=== PATIENT | female | born 1965 | race Caucasian/White ===

== ENCOUNTER 2017-01-16 09:13 | Emergency (ER) | payer MEDICARE ==
[~2017-01-16] VITALS: Ht 154.9 cm; Wt 83.9 kg
[~2017-01-16 09:13] MED LIST: ALBU17IN INH; ALL10TAB27 PO; DITR5TAB PO; FLUT1LOT EX; LEVO25TA5 PO; MELO15TA4 PO; MIRA33504 PO; MULT1TAB10 PO; SYMB16INH INH; VALI5TAB PO; VENL1TAB35 PO
[2017-01-16] MEDS ORDERED: MILKSUS PO (09:32)
[2017-01-16] MEDS ORDERED: predniSONE 20 MG TAB PO ONE (10:00)
[2017-01-16] MEDS: IPRATROPIUM 0.5MG/ALBUTEROL 2.5MG INH SOL UD 3ML (DUONEB)(J7620) NEB PRN ×3 (10:09→10:21)
[2017-01-16] MEDS ORDERED: AZITHROMYCIN 250 MG TAB PO ONE (10:15)
--- NOTE | 2017-01-16 10:15 | REP ---
Clinical: Acute cough . Comparison: 11/03/2008 . Technique: PA and lateral. Findings: The mediastinum and cardiac silhouette are normal. The lung mello are clear and without acute consolidation, effusion, or pneumothorax. The skeletal structures are intact and normal. Impression: 1. No acute cardiopulmonary process. Signed by Jairon Austin MD 01/16/2017 10:06 A
[2017-01-16 10:16] VITALS: BP 136/76
[2017-01-16] MEDS ORDERED: AZIT250T3 PO (10:16)
[2017-01-16] MEDS ORDERED: PRED20TA PO (10:17)
[2017-01-16] MEDS ORDERED: ALBU17IN INH (10:18)
[2017-01-16] MEDS ORDERED: MUCI600T34 PO (10:19)
== END 2017-01-16 10:54 | disposition home or self-care (01) ==
LOC: M ED 09:47
DX: J01.90 Acute sinusitis, unspecified (principal); J02.0 Streptococcal pharyngitis; J45.909 Unspecified asthma, uncomplicated; F32.9 Major depressive disorder, single episode, unspecified; Z88.2 Allergy status to sulfonamides; Z79.899 Other long term (current) drug therapy; Z79.51 Long term (current) use of inhaled steroids

== ENCOUNTER → 2017-02-21 | Outpatient (CLI) | payer MEDICARE ==
[~2017-02-21] MED LIST changes: +AZIT250T3 PO; +FLON1SPR; +MILKSUS PO; +MUCI600T34 PO; +PRED20TA PO; +PROA1AER INH
[2017-02-21 12:44] LABS: ALBUMIN 3.5 GM/DL (3.2-5.2); ALBUMIN/GLOBULIN RATIO 1.09 (1.00-1.93); ALKALINE PHOSPHATASE 64 U/L (45-117); ALT/SGPT 59 U/L (12-78); ANION GAP 7 MEQ/L (8-16); AST/SGOT 36 U/L (15-37); BILIRUBIN,TOTAL 0.3 MG/DL (0.2-1.0); BLOOD UREA NITROGEN 16 MG/DL (7-18); CALCIUM LEVEL 8.5 MG/DL (8.5-10.1); CARBON DIOXIDE LEVEL 29 MEQ/L (21-32); CHLORIDE LEVEL 106 MEQ/L (98-107); CHOLESTEROL LEVEL 221 MG/DL (<200); CREATININE FOR GFR 0.78 MG/DL (0.55-1.02); FREE T4 0.93 NG/DL (0.76-1.46); GLOMERULAR FILTRATION RATE > 60.0 (>51); GLUCOSE, FASTING 97 MG/DL (70-105); POTASSIUM SERUM 3.9 MEQ/L (3.5-5.1); SODIUM LEVEL 142 MEQ/L (136-145); TOTAL PROTEIN 6.7 GM/DL (6.4-8.2); TRIGLYCERIDES LEVEL 104 MG/DL (<150)
== END ==
LOC: M LAB 11:21
PROVIDERS: ATTEND Nurse Practitioner Family
DX: E03.9 Hypothyroidism, unspecified (principal); E55.9 Vitamin D deficiency, unspecified; E78.5 Hyperlipidemia, unspecified; F30.10 Manic episode without psychotic symptoms, unspecified

== ENCOUNTER → 2017-03-27 | Outpatient (REF) | payer MEDICARE ==
[~2017-03-27] MED LIST changes: +ACID1CAP PO; +ATOR1TAB21 PO; +D 1010004 PO; +TYLE500T78 PO; +XARE20TA PO
[2017-03-27 16:00] LABS: MEAN CORPUSCULAR HEMOGLOBIN 29.7 pg (27.0-33.0); MEAN CORPUSCULAR HGB CONC 34.1 g/dl (32.0-36.5); MEAN CORPUSCULAR VOLUME 87.1 fl (80.0-96.0); RED CELL DISTRIBUTION WIDTH 13.7 % (11.5-14.5); WHITE BLOOD COUNT 6.3 K/mm3 (4.0-10.0)
== END ==
LOC: M LABDRAW1 15:39
PROVIDERS: ATTEND Physician Assistant Medical
DX: R19.5 Other fecal abnormalities (principal)

== ENCOUNTER → 2017-03-27 | Outpatient (REF) | payer MEDICARE ==
[2017-03-27 16:11] LABS: FREE T4 1.02 NG/DL (0.76-1.46)
== END ==
LOC: M LABDRAW1 15:41
PROVIDERS: ATTEND Nurse Practitioner Family
DX: E03.9 Hypothyroidism, unspecified (principal); R19.5 Other fecal abnormalities

== ENCOUNTER → 2017-04-05 | Outpatient (CLI) | payer MEDICARE ==
[~2017-04-05] VITALS: Ht 154.9 cm; Wt 87.1 kg
[~2017-04-05] MED LIST changes: +LIDOCAINE 2% INJ 100 MG/5 ML SDV (FOR ANES.) As Ordered ONE; +NS 1,000 ML IV ONE; +PROPOFOL 200 MG/20 ML VIAL As Ordered ONE; +fentaNYL 100 MCG/2 ML INJECTION (J3010) As Ordered ONE
--- NOTE | 2017-04-05 12:58 | ROOR ---
Patient Name: Kiran Bloom Procedure Date: 04/05/2017 12:43 PM Date of : 1965 Age: 51 Room: [facility] Gender: Female Note Status: Finalized Procedure: Upper GI endoscopy Indications: Epigastric abdominal pain Providers: Zack CHAO MD Referring MD: Robel Wood NP Requesting Provider: Medicines: Monitored Anesthesia Care Complications: No immediate complications. Procedure: Pre-Anesthesia Assessment: - The heart rate, respiratory rate, oxygen saturations, blood pressure, adequacy of pulmonary ventilation, and response to care were monitored throughout the procedure. The Endoscope was introduced through the mouth, and advanced to the second part of duodenum. The upper GI endoscopy was accomplished without difficulty. The patient tolerated the procedure well. Findings: The examined esophagus was normal. The entire examined stomach was normal. A medium diverticulum was found in the second portion of the duodenum. The examined duodenum was normal. Impression: - Normal esophagus. - Normal stomach. - Normal examined duodenum. -Incidental: Duodenal diverticulum. - No specimens collected. Recommendation: - Observe patient's clinical course. - Continue present medications. Zack Chao MD Zack CHAO MD 04/05/2017 12:57:54 PM This report has been signed electronically. Number of Addenda: 0 Note Initiated On: 04/05/2017 12:43 PM Estimated Blood Loss: Estimated blood loss: none.
--- NOTE | 2017-04-05 13:12 | ROOR ---
Patient Name: Kiran Bloom Procedure Date: 04/05/2017 12:41 PM Date of : 1965 Age: 51 Room: [facility] Gender: Female Note Status: Finalized Procedure: Colonoscopy Indications: Heme positive stool, Constipation Providers: Zack CHAO MD Referring MD: Robel Wood NP Requesting Provider: Medicines: Monitored Anesthesia Care Complications: No immediate complications. Procedure: Pre-Anesthesia Assessment: - The heart rate, respiratory rate, oxygen saturations, blood pressure, adequacy of pulmonary ventilation, and response to care were monitored throughout the procedure. The Colonoscope was introduced through the anus and advanced to the cecum, identified by appendiceal orifice and ileocecal valve. Findings: The perianal and digital rectal examinations were normal. Small Internal Hemorrhoids. The entire examined colon appeared normal on direct and retroflexion views. Impression: - Small Internal Hemorrhoids. - The entire colon is normal on direct and retroflexion views. - No specimens collected. Recommendation: - Miralax 1 capful (17 grams) in 8 ounces of water twice a day. Zack Chao MD Zack CHAO MD 04/05/2017 1:12:01 PM This report has been signed electronically. Number of Addenda: 0 Note Initiated On: 04/05/2017 12:41 PM Estimated Blood Loss: Estimated blood loss: none.
[2017-04-05 13:32] VITALS: BP 156/89
== END | disposition home or self-care (01) ==
LOC: M OPP 10:36
PROVIDERS: ATTEND Internal Medicine Gastroenterology
DX: R19.5 Other fecal abnormalities (principal); K59.00 Constipation, unspecified; K64.8 Other hemorrhoids; R10.13 Epigastric pain; K57.10 Diverticulosis of small intestine without perforation or abscess without bleeding; E78.5 Hyperlipidemia, unspecified; I99.9 Unspecified disorder of circulatory system; Z86.718 Personal history of other venous thrombosis and embolism; E03.9 Hypothyroidism, unspecified; R23.3 Spontaneous ecchymoses; M19.90 Unspecified osteoarthritis, unspecified site; F41.9 Anxiety disorder, unspecified; F32.9 Major depressive disorder, single episode, unspecified; Z86.711 Personal history of pulmonary embolism; G47.8 Other sleep disorders; G47.30 Sleep apnea, unspecified; R06.83 Snoring; R32 Unspecified urinary incontinence; J45.909 Unspecified asthma, uncomplicated; Z88.2 Allergy status to sulfonamides; Z91.048 Other nonmedicinal substance allergy status; Z79.899 Other long term (current) drug therapy; Z79.01 Long term (current) use of anticoagulants
CPT/HCPCS: 43235; 45378; J3010

== ENCOUNTER → 2017-09-10 | Outpatient (REF) | payer MEDICARE ==
[~2017-09-10] MED LIST changes: +AZIT-12 PO; -AZIT250T3 PO; -LIDOCAINE 2% INJ 100 MG/5 ML SDV (FOR ANES.) As Ordered ONE; -MUCI600T34 PO; +MUCI600T37 PO; -NS 1,000 ML IV ONE; -PROA1AER INH; +PROAAER10 INH; -PROPOFOL 200 MG/20 ML VIAL As Ordered ONE; -fentaNYL 100 MCG/2 ML INJECTION (J3010) As Ordered ONE
[2017-09-10 13:09] LABS: ALBUMIN 3.8 GM/DL (3.2-5.2); ALBUMIN/GLOBULIN RATIO 1.27 (1.00-1.93); ALKALINE PHOSPHATASE 67 U/L (45-117); ALT/SGPT 52 U/L (12-78); ANION GAP 7 MEQ/L (8-16); AST/SGOT 30 U/L (7-37); BILIRUBIN,TOTAL 0.4 MG/DL (0.2-1.0); BLOOD UREA NITROGEN 16 MG/DL (7-18); CALCIUM LEVEL 8.7 MG/DL (8.5-10.1); CARBON DIOXIDE LEVEL 30 MEQ/L (21-32); CHLORIDE LEVEL 109 MEQ/L (98-107); CHOLESTEROL LEVEL 118 MG/DL (<200); CREATININE FOR GFR 0.76 MG/DL (0.55-1.02); FREE T4 1.12 NG/DL (0.76-1.46); GLOMERULAR FILTRATION RATE > 60.0 (>51); GLUCOSE, FASTING 94 MG/DL (70-105); POTASSIUM SERUM 3.8 MEQ/L (3.5-5.1); SODIUM LEVEL 146 MEQ/L (136-145); TOTAL PROTEIN 6.8 GM/DL (6.4-8.2); TRIGLYCERIDES LEVEL 60 MG/DL (<150)
== END ==
LOC: M LABDRAW1 12:06
PROVIDERS: ATTEND Nurse Practitioner Family
DX: E55.9 Vitamin D deficiency, unspecified (principal); E03.9 Hypothyroidism, unspecified; E78.5 Hyperlipidemia, unspecified

== ENCOUNTER 2017-10-28 09:42 | Emergency (ER) | payer MEDICARE ==
[2017-10-28] MEDS: NS 1,000 ML IV (11:33)
[2017-10-28 11:34] LABS: BASO # 0.1 10^3/uL (0.0-0.2); BASO % 0.8 % (0.0-1.0); EOS # 0.2 10^3/uL (0.0-0.50); EOS % 3.7 % (0.0-3.0); HEMATOCRIT 43.3 % (36.0-47.0); HEMOGLOBIN 14.4 g/dl (12.0-16.0); IMMATURE GRANULOCYTE % 0.3 % (0-0); LYMPH # 1.1 10^3/uL (1.5-4.5); LYMPH % 16.6 % (24.0-44.0); MEAN CORPUSCULAR HEMOGLOBIN 29.2 pg (27.0-33.0); MEAN CORPUSCULAR HGB CONC 33.3 g/dl (32.0-36.5); MEAN CORPUSCULAR VOLUME 87.8 fl (80.0-96.0); MONO # 0.6 10^3/uL (0.0-0.8); MONO % 9.1 % (0.0-5.0); NEUTROPHILS # 4.5 10^3/uL (1.8-7.7); NEUTROPHILS % 69.5 % (36.0-66.0); PLATELET COUNT, AUTOMATED 173 10^3/uL (150-450); RED BLOOD COUNT 4.93 10^6/uL (4.00-5.40); RED CELL DISTRIBUTION WIDTH 13.3 % (11.5-14.5); WHITE BLOOD COUNT 6.5 10^3/uL (4.0-10.0)
[2017-10-28 12:03] LABS: ALBUMIN 3.9 GM/DL (3.2-5.2); ALBUMIN/GLOBULIN RATIO 1.05 (1.00-1.93); ALKALINE PHOSPHATASE 77 U/L (45-117); ALT/SGPT 44 U/L (12-78); ANION GAP 7 MEQ/L (8-16); AST/SGOT 28 U/L (7-37); BILIRUBIN,TOTAL 0.5 MG/DL (0.2-1.0); BLOOD UREA NITROGEN 15 MG/DL (7-18); CALCIUM LEVEL 8.4 MG/DL (8.5-10.1); CARBON DIOXIDE LEVEL 30 MEQ/L (21-32); CHLORIDE LEVEL 105 MEQ/L (98-107); CREATININE FOR GFR 0.73 MG/DL (0.55-1.02); GLOMERULAR FILTRATION RATE > 60.0 (>51); GLUCOSE, FASTING 87 MG/DL (70-105); SODIUM LEVEL 142 MEQ/L (136-145); TOTAL PROTEIN 7.6 GM/DL (6.4-8.2)
[2017-10-28 12:14] LABS: D-DIMER QUANT 333.7 ng/ml (<500)
[2017-10-28] MEDS: AUGMENTIN 875 MG TAB PO (13:31)
[2017-10-28] MEDS: predniSONE 20 MG TAB PO (13:31)
== END 2017-10-28 13:47 | disposition home or self-care (01) ==
LOC: M ED 09:42
DX: J01.90 Acute sinusitis, unspecified (principal); J20.9 Acute bronchitis, unspecified; E78.00 Pure hypercholesterolemia, unspecified; Z86.718 Personal history of other venous thrombosis and embolism; Z86.711 Personal history of pulmonary embolism; G47.30 Sleep apnea, unspecified; E03.9 Hypothyroidism, unspecified; F41.9 Anxiety disorder, unspecified; F32.9 Major depressive disorder, single episode, unspecified; J30.89 Other allergic rhinitis; Z79.899 Other long term (current) drug therapy; Z88.2 Allergy status to sulfonamides
CPT/HCPCS: 71046

== ENCOUNTER → 2018-01-28 | Outpatient (REF) | payer MEDICARE ==
[2018-02-01 14:24] LABS: HPV LOW VOL RFLX Negative (Negative)
== END ==
LOC: M LAB REF 18:43
DX: Z01.419 Encounter for gynecological examination (general) (routine) without abnormal findings (principal); Z11.51 Encounter for screening for human papillomavirus (HPV)
CPT/HCPCS: G0123

== ENCOUNTER → 2018-03-26 | Outpatient (REF) | payer MEDICARE ==
[2018-03-27 12:01] LABS: ALBUMIN/GLOBULIN RATIO 1.33 (1.00-1.93); ALKALINE PHOSPHATASE 75 U/L (45-117); ALT/SGPT 53 U/L (12-78); ANION GAP 5 MEQ/L (8-16); AST/SGOT 31 U/L (7-37); BILIRUBIN,TOTAL 0.4 MG/DL (0.2-1.0); BLOOD UREA NITROGEN 11 MG/DL (7-18); CALCIUM LEVEL 8.7 MG/DL (8.5-10.1); CARBON DIOXIDE LEVEL 31 MEQ/L (21-32); CHLORIDE LEVEL 104 MEQ/L (98-107); CHOLESTEROL LEVEL 108 MG/DL (<200); CHOLESTEROL RISK RATIO 2.037 (<5); FREE T3 2.5 PG/ML (2.2-4.0); FREE T4 1.07 NG/DL (0.76-1.46); GLOMERULAR FILTRATION RATE > 60.0 (>51); GLUCOSE, FASTING 84 MG/DL (70-100); HDL CHOLESTEROL 53 MG/DL (>40); LDL CHOLESTEROL 42.8 MG/DL (<100); NON-HDL-C 55 MG/DL; SODIUM LEVEL 140 MEQ/L (136-145); TRIGLYCERIDES LEVEL 61 MG/DL (<150)
[2018-03-27 14:56] LABS: TOTAL 25(OH) VITAMIN D 42.3 NG/ML (30.0-100.0)
== END ==
LOC: M LABDRAW1 08:00
DX: E55.9 Vitamin D deficiency, unspecified (principal); E03.9 Hypothyroidism, unspecified; E78.5 Hyperlipidemia, unspecified; Z79.899 Other long term (current) drug therapy
CPT/HCPCS: 84443

== ENCOUNTER → 2018-04-29 | Outpatient (REF) | payer MEDICARE, OTHER ==
[2018-04-29 20:18] LABS: APPEARANCE, URINE HAZY (CLEAR); BACTERIA, URINE AUTO 2+ (NEGATIVE); BILIRUBIN, URINE AUTO NEGATIVE (NEGATIVE); BLOOD, URINE BLOOD 3+ (NEGATIVE); COLOR, URINE YELLOW (YELLOW); GLUCOSE, URINE (UA) AUTO NEGATIVE (NEGATIVE); KETONE, URINE AUTO NEGATIVE (NEGATIVE); LEUKOCYTE ESTERASE, URINE AUTO 3+ (NEGATIVE); NITRITE, URINE AUTO NEGATIVE (NEGATIVE); PROTEIN, URINE AUTO 1+ mg/dL (NEGATIVE); RBC, URINE AUTO 7 /HPF (0-3); SPECIFIC GRAVITY URINE AUTO 1.005 (1.002-1.035); SQUAMOUS EPITHELIAL CELL UR AU 0 /HPF (0-6); UROBILINOGEN, URINE AUTO 0.2 mg/dL (0.0-2.0); WBC, URINE AUTO 164 /HPF (0-3)
== END ==
LOC: M LAB REF 16:59
DX: N39.0 Urinary tract infection, site not specified (principal)
CPT/HCPCS: 81001

== ENCOUNTER → 2018-07-17 | Outpatient (REF) | payer MEDICARE, OTHER ==
[2018-07-17 14:53] LABS: CHOLESTEROL LEVEL 135 MG/DL (<200); CHOLESTEROL RISK RATIO 2.454 (<5); FREE T3 2.9 PG/ML (2.2-4.0); FREE T4 1.41 NG/DL (0.76-1.46); HDL CHOLESTEROL 55 MG/DL (>40); LDL CHOLESTEROL 69 MG/DL (<100); NON-HDL-C 80 MG/DL; THYROID STIMULATING HORMONE 0.956 uIU/ML (0.358-3.740); TOTAL 25(OH) VITAMIN D 36.5 NG/ML (30.0-100.0); TRIGLYCERIDES LEVEL 54 MG/DL (<150)
== END ==
LOC: M LABDRAW1 11:39
DX: E55.9 Vitamin D deficiency, unspecified (principal); E03.9 Hypothyroidism, unspecified; E78.5 Hyperlipidemia, unspecified; Z79.899 Other long term (current) drug therapy; F31.32 Bipolar disorder, current episode depressed, moderate; F70 Mild intellectual disabilities; F41.1 Generalized anxiety disorder; F60.7 Dependent personality disorder
CPT/HCPCS: 84443

== ENCOUNTER → 2018-09-02 | Outpatient (REF) ==
[2018-09-03 08:47] LABS: RUBEOLA IgG ANTIBODY 41.2 AU/mL (Immune >29.9)
[2018-09-03 10:27] LABS: RUBELLA IgG QUALITATIVE IMMUNE (IMMUNE)
== END ==
LOC: M LAB 10:30
DX: Z00.00 Encounter for general adult medical examination without abnormal findings (principal)

== ENCOUNTER 2018-12-03 15:40 | Emergency (ER) | payer MEDICARE ==
[~2018-12-03] VITALS: Ht 152.4 cm; Wt 65.0 kg
[~2018-12-03 15:40] MED LIST changes: -ALL10TAB27 PO; +ALL10TAB28 PO; +AUGM875T28 PO; +CALCTAB68 PO; +DIPH50CA PO; +HYDRO50TAB PO; +INVE156I IM; +INVE3TAB2 PO; +INVE6TAB3 PO; +MELO15TA28 PO; -MELO15TA4 PO; +MILK120011 PO; -MILKSUS PO; +OXYB5TAB10 PO; +TRAZO50TA PO; +VENL100T PO
[2018-12-03] MEDS ORDERED: VENL37.598 (15:53)
[2018-12-03] MEDS ORDERED: VENL75CA47 (15:53)
--- NOTE | 2018-12-03 16:34 | REP ---
CT Head without contrast HISTORY: Head pressure COMPARISON: 04/03/2018 Areas of decreased attenuation are present in the periventricular and subcortical white matter. This represents small-vessel ischemic disease. There is no intraparenchymal hemorrhage, acute infarct, mass or midline shift. The ventricular system is normal in appearance. There is no extra cerebral collection. There is no fracture. The visualized sinuses are clear. IMPRESSION: Small-vessel ischemic disease. Electronically Signed by Trace Cox MD 12/03/2018 04:26 P
[2018-12-03 17:57] VITALS: BP 145/84
== END 2018-12-03 18:04 | disposition home or self-care (01) ==
LOC: M ED 15:40
DX: R51 Headache (principal); E78.5 Hyperlipidemia, unspecified; E03.9 Hypothyroidism, unspecified

== ENCOUNTER → 2018-12-05 | Outpatient (REF) | payer MEDICARE ==
[~2018-12-05] MED LIST changes: +VENL37.598; +VENL75CA47
[2018-12-05 11:53] LABS: BASO # 0.1 10^3/uL (0.0-0.2); BASO % 0.8 % (0.0-1.0); EOS # 0.1 10^3/uL (0.0-0.50); HEMATOCRIT 44.2 % (36.0-47.0); HEMOGLOBIN 14.9 g/dl (12.0-15.5); LYMPH # 0.9 10^3/uL (1.5-4.5); LYMPH % 14.5 % (24.0-44.0); MEAN CORPUSCULAR HEMOGLOBIN 28.8 pg (27.0-33.0); MEAN CORPUSCULAR HGB CONC 33.7 g/dl (32.0-36.5); MEAN CORPUSCULAR VOLUME 85.5 fl (80.0-96.0); MONO # 0.4 10^3/uL (0.0-0.8); MONO % 6.3 % (0.0-5.0); NEUTROPHILS # 4.6 10^3/uL (1.8-7.7); NEUTROPHILS % 76.7 % (36.0-66.0); PLATELET COUNT, AUTOMATED 192 10^3/uL (150-450); RED BLOOD COUNT 5.17 10^6/uL (4.00-5.40)
[2018-12-05 12:40] LABS: ALBUMIN 4.2 GM/DL (3.2-5.2); ALT/SGPT 25 U/L (12-78); BILIRUBIN,TOTAL 0.7 MG/DL (0.2-1.0); BLOOD UREA NITROGEN 14 MG/DL (7-18); CALCIUM LEVEL 8.8 MG/DL (8.5-10.1); CARBON DIOXIDE LEVEL 27 MEQ/L (21-32); CHLORIDE LEVEL 107 MEQ/L (98-107); CHOLESTEROL LEVEL 146 MG/DL (<200); CHOLESTEROL RISK RATIO 2.607 (<5); CREATININE FOR GFR 0.58 MG/DL (0.55-1.30); FREE T3 2.6 PG/ML (2.2-4.0); FREE T4 1.43 NG/DL (0.76-1.46); GLOMERULAR FILTRATION RATE > 60.0 (>51); GLUCOSE, FASTING 109 MG/DL (70-100); HDL CHOLESTEROL 56 MG/DL (>40); LDL CHOLESTEROL 79 MG/DL (<100); NON-HDL-C 90 MG/DL; POTASSIUM SERUM 3.5 MEQ/L (3.5-5.1); SODIUM LEVEL 142 MEQ/L (136-145); TOTAL 25(OH) VITAMIN D 33.3 NG/ML (30.0-100.0); TRIGLYCERIDES LEVEL 55 MG/DL (<150)
== END ==
LOC: M LABDRAW1 09:08
PROVIDERS: ATTEND Nurse Practitioner Family
DX: E03.9 Hypothyroidism, unspecified (principal); E78.5 Hyperlipidemia, unspecified

== ENCOUNTER → 2018-12-24 | Outpatient (CLI) | payer MEDICARE ==
[2018-12-24 18:33] LABS: FOLLICLE STIMULATING HORMONE 86.7 mIU/mL; LUTEINIZING HORMONE 50.7 mIU/mL
== END ==
LOC: M SMT 15:19
PROVIDERS: ATTEND Specialist
DX: N95.1 Menopausal and female climacteric states (principal)

== ENCOUNTER → 2019-03-10 | Outpatient (CLI) | payer MEDICARE ==
--- NOTE | 2019-03-12 12:30 | SLEEPCENT ---
DATE OF PROCEDURE: 03/10/2019 ORDERED BY: LEONELA Casper Nocturnal polysomnography was performed for titration of pressure therapy in this patient with obstructive sleep apnea syndrome. Apnea-hypopnea index 33.7. For testing the patient was fit with a ResMed AirFit F20 full-face mask of small size; 4 cm of water pressure were applied to the circuit and the lights were extinguished. 7 hours and 49 minutes of data were reviewed. There were 334 minutes of sleep identified. Sleep latency was normal at 10 minutes. Rapid eye movement (REM) latency was delayed at 272 minutes. Sleep architecture was fair. There was 1 rapid eye movement (REM) cycle. Overall sleep efficiency 72.8%. The patient's electrocardiogram showed a sinus rhythm with an average heart rate of 70 beats per minute. Electroencephalogram (EEG) showed normal waveforms for awake and sleep. Respiratory events were fully palliated with CPAP at a pressure of +6 and remaining measures of sleep physiology were normal. IMPRESSION: Obstructive sleep apnea syndrome (G47.33). RECOMMENDATIONS: Nightly use of pressure therapy 6 cm of water.
== END ==
LOC: M SLEEP 19:29
PROVIDERS: ATTEND Nurse Practitioner Family
DX: G47.33 Obstructive sleep apnea (adult) (pediatric) (principal)

== ENCOUNTER → 2019-06-12 | Outpatient (CLI) | payer MEDICARE ==
[~2019-06-12] MED LIST changes: +HYDR1TAB33 PO; -HYDRO50TAB PO; +TRAZ1TAB10 PO; -TRAZO50TA PO
[2019-06-12 09:23] LABS: BASO # 0.1 10^3/uL (0.0-0.2); BASO % 1.3 % (0.0-1.0); EOS # 0.3 10^3/uL (0.0-0.50); EOS % 5.1 % (0.0-3.0); HEMATOCRIT 44.2 % (36.0-47.0); HEMOGLOBIN 14.4 g/dl (12.0-15.5); LYMPH # 1.1 10^3/uL (1.5-4.5); LYMPH % 18.5 % (24.0-44.0); MEAN CORPUSCULAR HEMOGLOBIN 29.6 pg (27.0-33.0); MEAN CORPUSCULAR HGB CONC 32.6 g/dl (32.0-36.5); MEAN CORPUSCULAR VOLUME 90.9 fl (80.0-96.0); MONO # 0.6 10^3/uL (0.0-0.8); MONO % 9.6 % (0.0-5.0); NEUTROPHILS % 65.2 % (36.0-66.0); PLATELET COUNT, AUTOMATED 184 10^3/uL (150-450); RED BLOOD COUNT 4.86 10^6/uL (4.00-5.40); WHITE BLOOD COUNT 6.1 10^3/uL (4.0-10.0)
[2019-06-12 09:54] LABS: ALBUMIN 3.8 GM/DL (3.2-5.2); ALT/SGPT 26 U/L (12-78); BILIRUBIN,TOTAL 0.6 MG/DL (0.2-1.0); BLOOD UREA NITROGEN 13 MG/DL (7-18); CALCIUM LEVEL 9.5 MG/DL (8.5-10.1); CARBON DIOXIDE LEVEL 31 MEQ/L (21-32); CHLORIDE LEVEL 108 MEQ/L (98-107); CHOLESTEROL LEVEL 159 MG/DL (<200); CHOLESTEROL RISK RATIO 2.789 (<5); GLOMERULAR FILTRATION RATE > 60.0 (>51); GLUCOSE, FASTING 96 MG/DL (70-100); HDL CHOLESTEROL 57 MG/DL (>40); LDL CHOLESTEROL 77 MG/DL (<100); LITHIUM LEVEL 0.27 MEQ/L (0.60-1.20); NON-HDL-C 102 MG/DL; POTASSIUM SERUM 3.9 MEQ/L (3.5-5.1); SODIUM LEVEL 145 MEQ/L (136-145); TRIGLYCERIDES LEVEL 123 MG/DL (<150)
== END ==
LOC: M LAB 08:27
PROVIDERS: ATTEND Physician Assistant
DX: E03.9 Hypothyroidism, unspecified (principal); E78.2 Mixed hyperlipidemia; F33.1 Major depressive disorder, recurrent, moderate; Z79.899 Other long term (current) drug therapy

== ENCOUNTER → 2019-08-10 | Outpatient (CLI) | payer MEDICARE ==
[~2019-08-10] MED LIST changes: -ALL10TAB28 PO; +ALL10TAB29 PO
[2019-08-10 11:22] LABS: BASO # 0.1 10^3/uL (0.0-0.2); BASO % 1.6 % (0.0-1.0); EOS # 0.3 10^3/uL (0.0-0.5); EOS % 5.3 % (0.0-3.0); HEMOGLOBIN 14.1 g/dl (12.0-15.5); LYMPH # 1.3 10^3/uL (1.5-5.0); MEAN CORPUSCULAR HEMOGLOBIN 30.5 pg (27.0-33.0); MEAN CORPUSCULAR HGB CONC 33.6 g/dl (32.0-36.5); MEAN CORPUSCULAR VOLUME 90.7 fl (80.0-96.0); MONO # 0.5 10^3/uL (0.0-0.8); MONO % 9.7 % (0.0-5.0); NEUTROPHILS # 3.2 10^3/uL (1.5-8.5); PLATELET COUNT, AUTOMATED 186 10^3/uL (150-450); RED BLOOD COUNT 4.63 10^6/uL (4.00-5.40); WHITE BLOOD COUNT 5.5 10^3/uL (4.0-10.0)
[2019-08-10 11:53] LABS: ERYTHROCYTE SEDIMENTATION RATE 11 mm/hr (0-30)
[2019-08-10 12:13] LABS: ALBUMIN 3.7 GM/DL (3.2-5.2); ALT/SGPT 43 U/L (12-78); BILIRUBIN,TOTAL 0.5 MG/DL (0.2-1.0); BLOOD UREA NITROGEN 16 MG/DL (7-18); CARBON DIOXIDE LEVEL 28 MEQ/L (21-32); CHLORIDE LEVEL 109 MEQ/L (98-107); CREATININE FOR GFR 0.73 MG/DL (0.55-1.30); GLOMERULAR FILTRATION RATE > 60.0 (>51); GLUCOSE, FASTING 96 MG/DL (70-100); POTASSIUM SERUM 4.6 MEQ/L (3.5-5.1); RHEUMATOID FACTOR QUANT < 10.0 IU/ML (<15.0); SODIUM LEVEL 141 MEQ/L (136-145); TOTAL 25(OH) VITAMIN D 30.8 NG/ML (30.0-100.0)
[2019-08-11 14:40] LABS: ANTINUCLEAR ANTIBODIES DIRECT Negative (Negative)
== END ==
LOC: M LAB 10:21
PROVIDERS: ATTEND Psychiatry & Neurology Neurology
DX: R51 Headache (principal); Z79.899 Other long term (current) drug therapy

== ENCOUNTER → 2019-10-22 | Outpatient (CLI) | payer MEDICARE ==
[2019-10-22 11:38] LABS: MAGNESIUM LEVEL 2.2 MG/DL (1.8-2.4)
[2019-10-22 13:13] LABS: TOTAL 25(OH) VITAMIN D 39.3 NG/ML (30.0-100.0)
== END ==
LOC: M LAB 10:19
PROVIDERS: ATTEND Physician Assistant Medical
DX: E55.9 Vitamin D deficiency, unspecified (principal); G47.00 Insomnia, unspecified; R51 Headache; Z79.899 Other long term (current) drug therapy

== ENCOUNTER → 2020-02-22 | Outpatient (REF) | payer MEDICARE | LOC: M SFHCWAGY 16:57 | PROVIDERS: ATTEND Specialist | DX: Z01.419 Encounter for gynecological examination (general) (routine) without abnormal findings (principal); R87.625 Unsatisfactory cytologic smear of vagina | CPT/HCPCS: G0101; G0123 ==

== ENCOUNTER → 2020-03-10 | Outpatient (CLI) | payer MEDICARE ==
[2020-03-10 10:55] LABS: BASO # 0.1 10^3/uL (0.0-0.2); BASO % 1.2 % (0.0-1.0); EOS # 0.3 10^3/uL (0.0-0.5); EOS % 4.5 % (0.0-3.0); HEMATOCRIT 46.7 % (36.0-47.0); HEMOGLOBIN 15.3 g/dl (12.0-15.5); LYMPH # 1.2 10^3/uL (1.5-5.0); LYMPH % 17.9 % (24.0-44.0); MEAN CORPUSCULAR HEMOGLOBIN 28.7 pg (27.0-33.0); MEAN CORPUSCULAR HGB CONC 32.8 g/dl (32.0-36.5); MEAN CORPUSCULAR VOLUME 87.5 fl (80.0-96.0); MONO # 0.6 10^3/uL (0.0-0.8); MONO % 8.9 % (0.0-5.0); NEUTROPHILS # 4.6 10^3/uL (1.5-8.5); NEUTROPHILS % 67.2 % (36.0-66.0); PLATELET COUNT, AUTOMATED 204 10^3/uL (150-450); RED BLOOD COUNT 5.34 10^6/uL (4.00-5.40); WHITE BLOOD COUNT 6.8 10^3/uL (4.0-10.0)
[2020-03-10 13:18] LABS: ALBUMIN 3.9 GM/DL (3.2-5.2); ALT/SGPT 54 U/L (12-78); BILIRUBIN,TOTAL 0.4 MG/DL (0.2-1.0); BLOOD UREA NITROGEN 17 MG/DL (7-18); CALCIUM LEVEL 8.9 MG/DL (8.5-10.1); CARBON DIOXIDE LEVEL 27 MEQ/L (21-32); CHLORIDE LEVEL 111 MEQ/L (98-107); CHOLESTEROL LEVEL 161 MG/DL (<200); CHOLESTEROL RISK RATIO 3.285 (<5); CREATININE FOR GFR 0.72 MG/DL (0.55-1.30); FREE T4 1.03 NG/DL (0.76-1.46); GLOMERULAR FILTRATION RATE > 60.0 (>51); GLUCOSE, FASTING 110 MG/DL (70-100); HDL CHOLESTEROL 49 MG/DL (>40); LDL CHOLESTEROL 89 MG/DL (<100); NON-HDL-C 112 MG/DL; POTASSIUM SERUM 4.3 MEQ/L (3.5-5.1); SODIUM LEVEL 144 MEQ/L (136-145); TOTAL PROTEIN 7.4 GM/DL (6.4-8.2); TRIGLYCERIDES LEVEL 116 MG/DL (<150)
[2020-03-10 14:26] LABS: HEMOGLOBIN A1c 5.8 %
== END ==
LOC: M LAB 09:52
PROVIDERS: ATTEND Family Medicine
DX: E03.9 Hypothyroidism, unspecified (principal); E78.2 Mixed hyperlipidemia; J45.30 Mild persistent asthma, uncomplicated; R73.01 Impaired fasting glucose

== ENCOUNTER 2020-03-24 17:00 | Emergency (ER) | payer MEDICARE ==
[~2020-03-24] VITALS: Ht 152.4 cm; Wt 91.3 kg
[2020-03-24] MEDS ORDERED: RAME8TAB2 (17:13)
[2020-03-24] MEDS ORDERED: DOXE50CA (17:13)
[2020-03-24] MEDS ORDERED: ESSE250T PO (17:13)
[2020-03-24] MEDS ORDERED: DIAZ2TAB (17:13)
[2020-03-24] MEDS ORDERED: BRIN1TAB3 (17:13)
[2020-03-24] MEDS ORDERED: GABA-843 (17:13)
[2020-03-24] MEDS ORDERED: DOXE10CA (17:13)
--- NOTE | 2020-03-24 18:02 | REPVR ---
PROCEDURE INFORMATION: Exam: US Duplex Left Lower Extremity Veins, Limited Exam date and time: 03/24/2020 5:56 PM Age: 54 years old Clinical indication: Swelling (edema) of limb; Lower extremity, left; Additional info: Swelling, R/O dvt TECHNIQUE: Imaging protocol: Real-time Duplex ultrasound of the Left Lower Extremity with 2-D clemens scale, color Doppler flow and spectral waveform analysis with image documentation. Limited exam focused on the left lower extremity veins. COMPARISON: No relevant prior studies available. FINDINGS: Left deep veins: The common femoral, femoral, and popliteal veins are patent without thrombus. Normal Doppler waveforms. Normal compressibility and/or augmentation response. Left superficial veins: Unremarkable. Soft tissues: Unremarkable. IMPRESSION: No evidence of deep vein thrombosis. Electronically signed by: Ady Murry On 03/24/2020 18:02:27 PM
[2020-03-24 18:51] VITALS: BP 150/81
== END 2020-03-24 19:00 | disposition home or self-care (01) ==
LOC: M ED 17:00
DX: M79.605 Pain in left leg (principal); R22.42 Localized swelling, mass and lump, left lower limb

== ENCOUNTER 2020-06-26 09:11 | Emergency (ER) | payer MEDICARE ==
[~2020-06-26] VITALS: Ht 152.4 cm; Wt 94.5 kg
[~2020-06-26 09:11] MED LIST changes: -ALL10TAB29 PO; +BRIN1TAB3; +CETI-24 PO; +DIAZ2TAB; +DOXE10CA; +DOXE50CA PO; +ESSE250T PO; +GABA-843 PO; +RAME8TAB2 PO
[2020-06-26] MEDS ORDERED: FLUORESCEIN OPHTH 1 MG STRIP OD ONE (10:15)
[2020-06-26] MEDS ORDERED: TETRACAINE 0.5% OPHTH SOLN 4ML OD ONE (10:15)
[2020-06-26] MEDS ORDERED: ISOVUE-370 76% 100ML VIAL As Ordered ONE (10:37)
[2020-06-26 10:39] LABS: BASO # 0.1 10^3/uL (0.0-0.2); BASO % 0.8 % (0.0-1.0); EOS # 0.2 10^3/uL (0.0-0.5); EOS % 2.9 % (0.0-3.0); HEMATOCRIT 45.3 % (36.0-47.0); HEMOGLOBIN 14.8 g/dl (12.0-15.5); LYMPH # 1.3 10^3/uL (1.5-5.0); LYMPH % 16.7 % (24.0-44.0); MEAN CORPUSCULAR HEMOGLOBIN 28.5 pg (27.0-33.0); MEAN CORPUSCULAR HGB CONC 32.7 g/dl (32.0-36.5); MEAN CORPUSCULAR VOLUME 87.3 fl (80.0-96.0); MONO # 0.6 10^3/uL (0.0-0.8); MONO % 7.8 % (0.0-5.0); NEUTROPHILS # 5.4 10^3/uL (1.5-8.5); NEUTROPHILS % 71.4 % (36.0-66.0); PLATELET COUNT, AUTOMATED 205 10^3/uL (150-450); RED BLOOD COUNT 5.19 10^6/uL (4.00-5.40); WHITE BLOOD COUNT 7.6 10^3/uL (4.0-10.0)
[2020-06-26] MEDS ORDERED: D3 +TAB PO (11:29)
[2020-06-26] MEDS ORDERED: CETI-24 PO (11:29)
[2020-06-26] MEDS ORDERED: VITA500T40 PO (11:29)
[2020-06-26] MEDS ORDERED: FOLI800C PO (11:29)
[2020-06-26] MEDS ORDERED: AUGM875T28 PO (11:43)
[2020-06-26] MEDS ORDERED: CLEO300C2 PO (11:43)
[2020-06-26] MEDS ORDERED: BOOSTRIX/ADACEL VACCINE (DIPHTH/PERTUSS/ACELL/TETANUS) 0.5ML SYR IM ONE (11:45)
[2020-06-26 12:04] VITALS: BP 137/82
--- NOTE | 2020-07-22 14:07 | REP ---
CONTRAST ENHANCED CT OF THE ORBITS CLINICAL: Right periorbital soft tissue swelling and redness. TECHNIQUE: Axial images through the orbits with coronal and sagittal reformations using 100 cc Isovue-370 intravenous contrast material. FINDINGS: Moderate right periorbital/infraorbital soft tissue swelling is appreciated consistent with extraocular periorbital cellulitis. The right globe and intraconal contents including intraorbital fat, ocular musculature, and neurovascular bundle appear normal. The left orbit and periorbital region appears normal. The sinuses are clear. The osseous structures are intact and without obvious abnormality. IMPRESSION: Findings consistent with periorbital cellulitis. No orbital cellulitis or orbital pathology appreciated. MTDD
== END 2020-06-26 12:15 | disposition home or self-care (01) ==
LOC: M ED 09:11
DX: L03.213 Periorbital cellulitis (principal); F32.9 Major depressive disorder, single episode, unspecified; F41.9 Anxiety disorder, unspecified; E78.5 Hyperlipidemia, unspecified; E03.9 Hypothyroidism, unspecified; Z79.51 Long term (current) use of inhaled steroids; Z79.1 Long term (current) use of non-steroidal anti-inflammatories (NSAID); Z79.899 Other long term (current) drug therapy; Z91.048 Other nonmedicinal substance allergy status
CPT/HCPCS: 36415; 70481; 80047; 85025; 90471; 90715; 99284; Q9967

== ENCOUNTER → 2020-09-14 | Outpatient (CLI) | payer MEDICARE ==
[~2020-09-14] MED LIST changes: +CLEO300C2 PO; +D3 +TAB PO; +FOLI800C PO; +VITA500T40 PO
[2020-09-14 10:41] LABS: BASO # 0.1 10^3/uL (0.0-0.2); BASO % 1.3 % (0.0-1.0); EOS # 0.2 10^3/uL (0.0-0.5); EOS % 3.4 % (0.0-3.0); HEMATOCRIT 46.8 % (36.0-47.0); HEMOGLOBIN 14.9 g/dl (12.0-15.5); LYMPH # 1.3 10^3/uL (1.5-5.0); LYMPH % 18.3 % (24.0-44.0); MEAN CORPUSCULAR HEMOGLOBIN 27.6 pg (27.0-33.0); MEAN CORPUSCULAR HGB CONC 31.8 g/dl (32.0-36.5); MEAN CORPUSCULAR VOLUME 86.7 fl (80.0-96.0); MONO # 0.6 10^3/uL (0.0-0.8); MONO % 8.2 % (0.0-5.0); NEUTROPHILS # 4.8 10^3/uL (1.5-8.5); NEUTROPHILS % 68.5 % (36.0-66.0); PLATELET COUNT, AUTOMATED 211 10^3/uL (150-450); WHITE BLOOD COUNT 7.1 10^3/uL (4.0-10.0)
[2020-09-14 11:20] LABS: ALBUMIN 3.7 GM/DL (3.2-5.2); ALT/SGPT 83 U/L (12-78); BILIRUBIN,TOTAL 0.5 MG/DL (0.2-1.0); BLOOD UREA NITROGEN 18 MG/DL (7-18); CALCIUM LEVEL 9.1 MG/DL (8.5-10.1); CARBON DIOXIDE LEVEL 29 MEQ/L (21-32); CHLORIDE LEVEL 110 MEQ/L (98-107); CHOLESTEROL LEVEL 155 MG/DL (<200); CHOLESTEROL RISK RATIO 3.297 (<5); CREATININE FOR GFR 0.78 MG/DL (0.55-1.30); FREE T4 1.16 NG/DL (0.76-1.46); GLOMERULAR FILTRATION RATE > 60.0 (>51); GLUCOSE, FASTING 114 MG/DL (70-100); HDL CHOLESTEROL 47 MG/DL (>40); LDL CHOLESTEROL 86 MG/DL (<100); NON-HDL-C 108 MG/DL; POTASSIUM SERUM 4.1 MEQ/L (3.5-5.1); SODIUM LEVEL 143 MEQ/L (136-145); THYROID STIMULATING HORMONE 0.907 uIU/ML (0.358-3.740); TOTAL PROTEIN 7.7 GM/DL (6.4-8.2); TRIGLYCERIDES LEVEL 108 MG/DL (<150)
[2020-09-14 11:22] LABS: TOTAL 25(OH) VITAMIN D 31.7 NG/ML (30.0-100.0)
== END ==
LOC: M LAB 09:47
PROVIDERS: ATTEND Physician Assistant
DX: E03.9 Hypothyroidism, unspecified (principal); E78.2 Mixed hyperlipidemia; Z79.899 Other long term (current) drug therapy

== ENCOUNTER → 2020-10-06 | Outpatient (CLI) | payer SELFPAY | LOC: M LABSMTC 13:18 | PROVIDERS: ATTEND Pediatrics | DX: Z20.828 Contact with and (suspected) exposure to other viral communicable diseases (principal) ==

== ENCOUNTER → 2020-10-29 | Outpatient (CLI) | payer SELFPAY | LOC: M LABSMTC 08:47 | PROVIDERS: ATTEND Pediatrics | DX: Z20.828 Contact with and (suspected) exposure to other viral communicable diseases (principal) ==

== ENCOUNTER 2021-01-03 19:13 | Emergency (ER) | payer MEDICARE ==
[~2021-01-03] VITALS: Ht 152.4 cm; Wt 97.4 kg
[~2021-01-03 19:13] MED LIST changes: -BRIN1TAB3; +BRIN1TAB3 PO; +GABA-282 PO; -GABA-843 PO
--- NOTE | 2021-01-03 21:23 | REPVR ---
PROCEDURE INFORMATION: Exam: US Duplex Left Lower Extremity Veins, Limited Exam date and time: 01/03/2021 8:34 PM Age: 55 years old Clinical indication: Pain; Leg, upper and leg, lower; Left; Additional info: Pain and swelling TECHNIQUE: Imaging protocol: Real-time Duplex ultrasound of the Left Lower Extremity with 2-D clemens scale, color Doppler flow and spectral waveform analysis with image documentation. Limited exam focused on the left lower extremity veins. COMPARISON: US Duplex, Ext,LOWER veins,unilat LEFT 03/24/2020 5:48 PM FINDINGS: Left deep veins: Unremarkable. The common femoral, femoral, proximal profunda femoral and popliteal veins are patent without thrombus. Normal Doppler waveforms. Normal compressibility and/or augmentation response. Left superficial veins: Unremarkable. Saphenofemoral junction is patent without thrombus. Soft tissues: Unremarkable. IMPRESSION: No evidence of deep vein thrombosis. Electronically signed by: Carlos Carrasquillo On 01/03/2021 21:24:11 PM
[2021-01-03 21:51] VITALS: BP 144/65
== END 2021-01-03 22:01 | disposition home or self-care (01) ==
LOC: M ED 19:13
DX: M25.562 Pain in left knee (principal); Z86.718 Personal history of other venous thrombosis and embolism; E78.5 Hyperlipidemia, unspecified; E03.9 Hypothyroidism, unspecified; F41.9 Anxiety disorder, unspecified; F33.9 Major depressive disorder, recurrent, unspecified; Z88.2 Allergy status to sulfonamides; Z79.899 Other long term (current) drug therapy

== ENCOUNTER → 2021-03-17 | Outpatient (CLI) | payer MEDICARE ==
[2021-03-17 09:35] LABS: BASO # 0.1 10^3/uL (0.0-0.2); BASO % 0.9 % (0.0-1.0); EOS # 0.3 10^3/uL (0.0-0.5); EOS % 3.7 % (0.0-3.0); HEMATOCRIT 46.9 % (36.0-47.0); LYMPH # 1.4 10^3/uL (1.5-5.0); LYMPH % 19.8 % (24.0-44.0); MEAN CORPUSCULAR HEMOGLOBIN 28.6 pg (27.0-33.0); MEAN CORPUSCULAR VOLUME 89.3 fl (80.0-96.0); MONO # 0.7 10^3/uL (0.0-0.8); MONO % 9.8 % (2.0-8.0); NEUTROPHILS # 4.5 10^3/uL (1.5-8.5); NEUTROPHILS % 65.4 % (36.0-66.0); PLATELET COUNT, AUTOMATED 180 10^3/uL (150-450); RED BLOOD COUNT 5.25 10^6/uL (4.00-5.40); WHITE BLOOD COUNT 6.8 10^3/uL (4.0-10.0)
[2021-03-17 10:09] LABS: ALBUMIN 3.7 GM/DL (3.2-5.2); ALT/SGPT 86 U/L (12-78); BILIRUBIN,TOTAL 0.5 MG/DL (0.2-1.0); BLOOD UREA NITROGEN 17 MG/DL (7-18); CALCIUM LEVEL 8.9 MG/DL (8.5-10.1); CARBON DIOXIDE LEVEL 31 MEQ/L (21-32); CHLORIDE LEVEL 106 MEQ/L (98-107); CHOLESTEROL LEVEL 132 MG/DL (<200); CHOLESTEROL RISK RATIO 2.693 (<5); CREATININE FOR GFR 0.86 MG/DL (0.55-1.30); FREE T4 1.27 NG/DL (0.76-1.46); GLOMERULAR FILTRATION RATE > 60.0 (>51); GLUCOSE, FASTING 108 MG/DL (70-100); HDL CHOLESTEROL 49 MG/DL (>40); LDL CHOLESTEROL 69 MG/DL (<100); NON-HDL-C 83 MG/DL; POTASSIUM SERUM 3.7 MEQ/L (3.5-5.1); SODIUM LEVEL 142 MEQ/L (136-145); TOTAL PROTEIN 7.3 GM/DL (6.4-8.2); TRIGLYCERIDES LEVEL 68 MG/DL (<150)
[2021-03-17 10:28] LABS: FOLATE > 24.0 NG/ML; TOTAL 25(OH) VITAMIN D 51.2 NG/ML (30.0-100.0); VITAMIN B12 LEVEL 1700 PG/ML
== END ==
LOC: M LAB 08:34
PROVIDERS: ATTEND Physician Assistant
DX: E03.9 Hypothyroidism, unspecified (principal); E78.2 Mixed hyperlipidemia; Z79.899 Other long term (current) drug therapy

== ENCOUNTER → 2021-03-18 | Outpatient (REF) | payer MEDICARE ==
[2021-03-18 17:34] LABS: APPEARANCE, URINE TURBID (CLEAR); BACTERIA, URINE AUTO 2+ (NEGATIVE); BILIRUBIN, URINE AUTO NEGATIVE (NEGATIVE); BLOOD, URINE BLOOD 1+ (NEGATIVE); COLOR, URINE YELLOW (YELLOW); GLUCOSE, URINE (UA) AUTO NEGATIVE (NEGATIVE); KETONE, URINE AUTO NEGATIVE (NEGATIVE); LEUKOCYTE ESTERASE, URINE AUTO 3+ (NEGATIVE); NITRITE, URINE AUTO POSITIVE (NEGATIVE); PROTEIN, URINE AUTO 1+ mg/dL (NEGATIVE); RBC, URINE AUTO 43 /HPF (0-3); RENAL EPITHELIAL CELLS 1 /HPF; SPECIFIC GRAVITY URINE AUTO 1.009 (1.002-1.035); SQUAMOUS EPITHELIAL CELL UR AU 2 /HPF (0-6); UROBILINOGEN, URINE AUTO 0.2 mg/dL (0.0-2.0); WBC, URINE AUTO TNTC /HPF (0-3)
== END ==
LOC: M LAB REF 16:54
PROVIDERS: ATTEND Physician Assistant
DX: R30.0 Dysuria (principal)

== ENCOUNTER → 2021-04-18 | Outpatient (REF) | payer MEDICARE | LOC: M SFHCWAGY 13:20 | PROVIDERS: ATTEND Specialist | DX: Z01.419 Encounter for gynecological examination (general) (routine) without abnormal findings (principal) | CPT/HCPCS: 87624; G0101; G0123 ==

== ENCOUNTER → 2021-08-15 | Outpatient (CLI) | payer MEDICARE ==
[2021-08-15 10:58] LABS: BASO # 0.1 10^3/uL (0.0-0.2); BASO % 1.1 % (0.0-1.0); EOS # 0.3 10^3/uL (0.0-0.5); EOS % 3.7 % (0.0-3.0); HEMATOCRIT 46.1 % (36.0-47.0); HEMOGLOBIN 15.1 g/dl (12.0-15.5); LYMPH # 1.3 10^3/uL (1.5-5.0); LYMPH % 14.3 % (24.0-44.0); MEAN CORPUSCULAR HEMOGLOBIN 28.5 pg (27.0-33.0); MEAN CORPUSCULAR HGB CONC 32.8 g/dl (32.0-36.5); MEAN CORPUSCULAR VOLUME 87.1 fl (80.0-96.0); MONO # 0.7 10^3/uL (0.0-0.8); MONO % 8.1 % (2.0-8.0); NEUTROPHILS # 6.4 10^3/uL (1.5-8.5); NEUTROPHILS % 72.1 % (36.0-66.0); PLATELET COUNT, AUTOMATED 207 10^3/uL (150-450); RED BLOOD COUNT 5.29 10^6/uL (4.00-5.40); WHITE BLOOD COUNT 8.9 10^3/uL (4.0-10.0)
[2021-08-15 11:45] LABS: ALBUMIN 3.8 GM/DL (3.2-5.2); ALT/SGPT 90 U/L (12-78); BILIRUBIN,DIRECT 0.2 MG/DL (0.0-0.2); BILIRUBIN,TOTAL 0.6 MG/DL (0.2-1.0); BLOOD UREA NITROGEN 13 MG/DL (7-18); CALCIUM LEVEL 8.9 MG/DL (8.5-10.1); CARBON DIOXIDE LEVEL 27 MEQ/L (21-32); CHLORIDE LEVEL 107 MEQ/L (98-107); CREATININE FOR GFR 0.93 MG/DL (0.55-1.30); FREE T4 1.05 NG/DL (0.76-1.46); GLOMERULAR FILTRATION RATE > 60.0 (>51); GLUCOSE, FASTING 128 MG/DL (70-100); POTASSIUM SERUM 3.9 MEQ/L (3.5-5.1); SODIUM LEVEL 141 MEQ/L (136-145); TOTAL PROTEIN 7.9 GM/DL (6.4-8.2)
--- NOTE | 2021-08-15 12:18 | REP ---
INDICATION: HYPOTHYROIDISM, UNSPECIFIED. COMPARISON: None. FINDINGS: Supine and upright views of the abdomen show the intestinal gas pattern to be nonspecific. Gas and stool is seen throughout the colon within the rectosigmoid region. The organ silhouettes insofar as delineated appear unremarkable. No abdominal calcific densities are seen within the abdomen or pelvis. The accompanying single frontal view of the chest shows no free subdiaphragmatic air, cardiomegaly, infiltrates or effusions. There is a moderate to large amount of stool seen in the ascending colon. IMPRESSION: Nonspecific intestinal gas pattern. <Electronically signed by Wade Osullivan > 08/15/21 [id number]
== END ==
LOC: M LAB 09:20
PROVIDERS: ATTEND Physician Assistant
DX: E03.9 Hypothyroidism, unspecified (principal); K59.00 Constipation, unspecified

== ENCOUNTER 2021-10-05 18:50 | Emergency (ER) | payer MEDICARE ==
[~2021-10-05] VITALS: Ht 152.4 cm; Wt 95.5 kg
--- OUTSIDE RECORDS SUMMARY | 2021-10-05 18:59 | CCD | Continuity of Care Document ---
Author Author Kiran PALMA Organization Unknown Address [address] [place] [address] Phone [phone] Care Team Providers Care Director Of In Service Education Name Role Phone Cynthia Calderon D.O. AUTM [phone] [place] [employer] [phone] Problems Active Problems Provider Date Mild persistent asthma ADORE Henry Onset: 06/11/2019 Obstructive sleep apnea syndrome ADORE Henry Onset: 06/11/2019 Mixed hyperlipidemia ADORE Henry Onset: 06/11/2019 History of thromboembolism of vein ADORE Henry Onset : 06/11/2019 Long-term current use of anticoagulant ADORE Henry O nset: 06/11/2019 Moderate recurrent major depression ADORE Henry Onse t: 06/11/2019 Hypothyroidism ADORE Henry Onset: 06/11/2019 Social History Type Date Description Comments Sex Unknown ETOH Use Denies alcohol use Tobacco Use Start: Unknown Patient has never smoked Recreational Drug Use Denies Drug Use Smoking Status Reviewed: 03/09/20 Patient has never smoked Exercise Type/Frequency Walks daily Sun Exposure Uses sunscreen Seat Belt/Car Seat Always uses seat belt Allergies and adverse reactions Active Allergies Criticality Reaction | Severity Comments Date Sulfa Unable to assess criticality 05/21/2019 Seasonal Unable to assess criticality 05/21/2019 Medications Active Medications SIG Qnty Indications Ordering Provide r Date Pneumovax 23 25mcg/0.5ML Injection administer at pharmacy .500ml Ciera Hwang 09/14/2021 Polyethylene Glycol 1500 Powder 1 tablespoon by mouth every day in 8 ounces of water. 7500gm Gina Peterson.O. 12/15/2020 Shingrix 50mcg/0.5ML Suspension Re c administer shingrix vaccine at pharmacy 1units Gina Lujan.O. 09/12/2020 Atorvastatin Calcium 20mg Tablets Take One-Half Tablet By Mouth Every Day 45tabs Gina Wynn.O. 09/07/2020 Vitamin D3 Super Strength 50mcg (2000 Ut) Capsules 1 by mouth every day 90caps Gina Hwang.O. 09/09/2019 Metamucil 28.3% Powder every day Unknown Restasis 0.05% Emulsion instill 2 drops each eye twice daily Unknown Levocetirizine Dihydrochloride 5mg Tablets 1 by mouth every day Unknown Acetaminophen Extra Strength 500mg Tablets 1 tablet by mouth twice a day for pain Un known Vitamin B 12 500mcg Tablets 1 by mouth every day Unknown Gabapentin 300mg Capsules take one capsule by mouth twice a day Unknown Ramelteon 8mg Tablets 1 tab by mouth at bedtime as needed insomnia istop [id number] Unkno wn Magnesium 400mg Tablets take one tablet by mouth before bed. Unknown Levothyroxine Sodium 25mcg Tablets Take One Tablet By Mouth Every Day 90tabs Cynthia Batista er, D.O. Trintellix 20mg Tablets 1 by mouth every day Unknown Folic Acid 0.8mg Capsules 1 in the morning Unknown Symbicort 160-4.5mcg/Act Aerosol Inhale 2 Puffs By Mouth Two Times A Day Unknown 0 Proair HFA 108(90Base) mcg/Act Aer osol 2 puffs by mouth every 4-6 hours as needed Unknown Doxepin HCL 50mg Capsules 1 by mouht at bedtime Unknown Xarelto 20mg Tablets take one tablet by mouth every day 90tabs Gina Hwang.O. Diazepam 2mg Tablets Take one tablets three times a day as needed Unknown Oxybutynin Chloride 5mg Tablets 1 tablet by mouth daily Unknown Immunizations Description No Information Available Vital Signs Date Vital Result Comment 09/14/2021 2:36pm BP Systolic 126 mmHg BP Diastolic 78 mmHg Height 60.25 inches 5'0.25" Weight 213.00 lb BMI (Body Mass Index) 41.2 kg/m2 Heart Rate 101 /min Respiratory Rate 18 /min Body Temperature 98.9 F O2 % BldC Oximetry 95 % [place] Body Weight 100 lb 08/10/2021 1:12pm BP Systolic 130 mmHg BP Diastolic 78 mmHg Height 60.25 inches 5'0.25" Weight 210.25 lb BMI (Body Mass Index) 40.7 kg/m2 Heart Rate 85 /min Respiratory Rate 12 /min Body Temperature 98.9 F O2 % BldC Oximetry 98 % [place] Body Weight 100 lb Results Test Acquired Date Facility Test Result H/L Range Note CBC With Differential 08/15/2021 [place] [id number] [phone] White Blood Count 8.9 10 Normal 4.0-10.0 Red Blood Count 5.29 10 Normal 4.00-5.40 Hemoglobin 15.1 g/dL Normal 12.0-15.5 Hematocrit 46.1 % Normal 36.0-47.0 Mean Corpuscular Volume 87.1 fl Normal 80.0-96.0 Mean Corpuscular Hemoglobin 28.5 pg Normal 27.0-33.0 Mean Corpuscular HGB Conc 32.8 g/dL Normal 32.0-36.5 Red Cell Distribution Width 13.3 % Normal 11.5-14.5 Platelet Count, Automated 207 10 Normal 150-450 Neutrophils % 72.1 % High 36.0-66.0 Lymph % 14.3 % Low 24.0-44.0 [place] % 8.1 % High 2.0-8.0 Eos % 3.7 % High 0.0-3.0 Baso % 1.1 % High 0.0-1.0 Immature Granulocyte % 0.7 % Normal 0-3.0 Nucleated Red Blood Cell % 0.0 % Normal 0-0 Neutrophils # 6.4 10 Normal 1.5-8.5 Lymph # 1.3 10 Low 1.5-5.0 [place] # 0.7 10 Normal 0.0-0.8 Eos # 0.3 10 Normal 0.0-0.5 Baso # 0.1 10 Normal 0.0-0.2 FT4&TSH Panel 08/15/[address] [address] [phone] Thyroid Stimulating Hormone 1.290 uIU/ML Normal 0. 358-3.740 Free T4 1.05 ng/dL Normal 0.76-1.46 Basic Metabolic Profile 08/15/[address] [address] [phone] Glucose, Fasting 128 mg/dL High 70-100 Blood Urea Nitrogen 13 mg/dL Normal 7-18 Creatinine For GFR 0.93 mg/dL Normal 0.55-1.30 Glomerular Filtration Rate > 60.0 Normal >51 1 Sodium Level 141 mEq/L Normal 136-145 Potassium Serum 3.9 mEq/L Normal 3.5-5.1 Chloride Level 107 mEq/L Normal 98-107 Carbon Dioxide Level 27 mEq/L Normal 21-32 Anion Gap 7 mEq/L Low 8-16 Calcium Level 8.9 mg/dL Normal 8.5-10.1 Liver Profile 08/15/[address] [address] [phone] Ast/Sgot 62 U/L High 7-37 Alt/SGPT 90 U/L High 12-78 Alkaline Phosphatase 72 U/L Normal 45-117 Bilirubin,Total 0.6 mg/dL Normal 0.2-1.0 Bilirubin,Direct 0.2 mg/dL Normal 0.0-0.2 Total Protein 7.9 GM/DL Normal 6.4-8.2 Albumin 3.8 GM/DL Normal 3.2-5.2 Albumin/Globulin Ratio 0.9 Low 1.2-2.2 CBC With Differential 03/17/2021 [facility] Outpatient Cindy serrano (Registration) [address] [place] [address] [phone] White Blood Count 6.8 10 Normal 4.0-10.0 Red Blood Count 5.25 10 Normal 4.00-5.40 Hemoglobin 15.0 g/dL Normal 12.0-15.5 Hematocrit 46.9 % Normal 36.0-47.0 Mean Corpuscular Volume 89.3 fl Normal 80.0-96.0 Mean Corpuscular Hemoglobin 28.6 pg Normal 27.0-33.0 Mean Corpuscular HGB Conc 32.0 g/dL Normal 32.0-36.5 Red Cell Distribution Width 13.3 % Normal 11.5-14.5 Platelet Count, Automated 180 10 Normal 150-450 Neutrophils % 65.4 % Normal 36.0-66.0 Lymph % 19.8 % Low 24.0-44.0 [place] % 9.8 % High 2.0-8.0 Eos % 3.7 % High 0.0-3.0 Baso % 0.9 % Normal 0.0-1.0 Immature Granulocyte % 0.4 % Normal 0-3.0 Nucleated Red Blood Cell % 0.0 % Normal 0-0 Neutrophils # 4.5 10 Normal 1.5-8.5 Lymph # 1.4 10 Low 1.5-5.0 [place] # 0.7 10 Normal 0.0-0.8 Eos # 0.3 10 Normal 0.0-0.5 Baso # 0.1 10 Normal 0.0-0.2 Comprehensive Metabolic Profil 03/17/2021 [facility] Outpa tient Testing (Registration) [address] [place] [address] [phone] Glucose, Fasting 108 mg/dL High 70-100 Blood Urea Nitrogen 17 mg/dL Normal 7-18 Creatinine For GFR 0.86 mg/dL Normal 0.55-1.30 Glomerular Filtration Rate > 60.0 Normal >51 2 Sodium Level 142 mEq/L Normal 136-145 Potassium Serum 3.7 mEq/L Normal 3.5-5.1 Chloride Level 106 mEq/L Normal 98-107 Carbon Dioxide Level 31 mEq/L Normal 21-32 Anion Gap 5 mEq/L Low 8-16 Calcium Level 8.9 mg/dL Normal 8.5-10.1 Ast/Sgot 46 U/L High 7-37 Alt/SGPT 86 U/L High 12-78 Alkaline Phosphatase 74 U/L Normal 45-117 Bilirubin,Total 0.5 mg/dL Normal 0.2-1.0 Total Protein 7.3 GM/DL Normal 6.4-8.2 Albumin 3.7 GM/DL Normal 3.2-5.2 Albumin/Globulin Ratio 1.0 Low 1.2-2.2 FT4&TSH Panel 03/17/2021 [facility] Outpatient Testi ng (Registration) [address] [place], [place] [id number] [phone] Thyroid Stimulating Hormone 1.560 uIU/ML Normal 0. 358-3.740 Free T4 1.27 ng/dL Normal 0.76-1.46 Laboratory test finding 03/17/2021 [facility] Outpatient T esting (Registration) [address] [place] [address] [phone] Total 25(Oh) Vitamin D 51.2 NG/ML Normal 30.0-100. 0 Vitamin B12 & Folate 03/17/2021 [facility] Outpatient Test ing (Registration) [address] [place] [address] [phone] Vitamin B12 Level 1700 pg/mL Normal 3 Folate > 24.0 NG/ML Normal 4 Lipid Panel 03/17/2021 [facility] Outpatient Testi ng (Registration) [address] [place] [address] [phone] Triglycerides Level 68 mg/dL Normal <150 Cholesterol Level 132 mg/dL Normal <200 HDL Cholesterol 49 mg/dL Normal >40 LDL Cholesterol 69 mg/dL Normal <100 Non-HDL-C 83 mg/dL Normal Cholesterol Risk Ratio 2.693 Normal <5 1 Units are mL/min/1.73 m2 Chronic Kidney Disease Staging per NKF: Stage I & II GFR >=60 Normal to Mildly Decreased Stage III GFR 30-59 Moderately Decreased Stage IV GFR 15-29 Severely Decreased Stage V GFR <15 Very Little GFR Left ESRD GFR <15 on DYE MACHINE TENDER 2 Units are mL/min/1.73 m2 Chronic Kidney Disease Staging per NKF: Stage I & II GFR >=60 Normal to Mildly Decreased Stage III GFR 30-59 Moderately Decreased Stage IV GFR 15-29 Severely Decreased Stage V GFR <15 Very Little GFR Left ESRD GFR <15 on DYE MACHINE TENDER 3 VITAMIN B12 NORMAL RANGE NORMAL 247 - 911 PG/ML INDETERMINATE 211 - 246 PG/ML DEFICIENT LESS THAN 211 PG/ML 4 FOLATE NORMAL RANGE NORMAL GREATER THAN 5.4 NG/ML INDETERMINATE 3.4-5.4 NG/ML DEFICIENT LESS THAN 3.4 NG/ML Procedures Date Code Description Status 08/10/2021 113[address] Office/Outpatient Established Lo w MDM 20-29 Min Completed Medical Devices Description No Information Available Encounters Type Date Location Provider Dx Diagnosis Office Visit 09/14/2021 2:30p [facility] ADORE Henry Z00.00 Encntr for general adult med ical exam w/o abnormal findings G47.33 Obstructive sleep apnea (pete lt) (pediatric) F33.1 Major depressive disorder, r ecurrent, moderate J45.30 Mild persistent asthma, unco mplicated E78.2 Mixed hyperlipidemia E03.9 Hypothyroidism, unspecified 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 K59.00 Constipation, unspecified Office Visit 08/10/2021 1:10p [facility] ADORE Henry K59.00 Constipation, unspecified E03.9 Hypothyroidism, unspecified Assessments Date Code Description Provider 09/14/2021 Z00.00 Encounter for genera l adult medical examination without abnormal findings ADORE Henry 09/14/2021 G47.33 Obstructive sleep apnea (adult) (pediatric) ADORE Henry 09/14/2021 F33.1 Major depressive disorder, recur rent, moderate ADORE Henry 09/14/2021 J45.30 Mild persistent asthma, uncompli cated ADORE Henry 09/14/2021 E78.2 Mixed hyperlipidemia ADORE Mcrae 09/14/2021 E03.9 Hypothyroidism, unspecified ADORE Ramsey 09/14/2021 Z79.01 nursing home (current) use of antic oagulants ADORE Henry 09/14/2021 K59.00 Constipation, unspecified ADORE [place]aña 08/10/2021 K59.00 Constipation, unspecified ADORE [place] 08/10/2021 E03.9 Hypothyroidism, unspecified ADORE Ramsey Plan of Treatment Future Appointment(s):* 03/21/2022 1:00 pm - ADORE Henry at [facility] Functional Status Description No Information Available Mental Status Description No Information Available Referrals Description No Information Available
--- OUTSIDE RECORDS SUMMARY | 2021-10-05 18:59 | CCD | Continuity of Care Document ---
Author Author Kiran SCHWARTZ N.PHi Organization Unknown Address [address] [place] [address] Phone [phone] Care Team Providers Care Cat Swamper Name Role Phone Cynthia Calderon D.O. AUTM Adelfo Carmen AUTM [phone] Problems Active Problems Provider Date Disturbance of consciousness Mickie Lane A.NDuglas Onse t: 11/30/2014 Obstructive sleep apnea syndrome Mickie Lane A.NDuglas Onset: 11/30/2014 Social History Type Date Description Comments Sex Unknown ETOH Use Denies alcohol use Recreational Drug Use Denies Drug Use Tobacco Use Reviewed: 05/18/20 Patient has never smoked Smoking Status Reviewed: 09/08/21 Patient has never smoked Allergies and adverse reactions Active Allergies Criticality Reaction | Severity Comments Date Sulfa Drugs Unable to assess criticality Urticaria 12/22/2008 Medications Active Medications SIG Qnty Indications Ordering Provide r Date CPAP 6cm lcw Jhonny Pina MD 03/12 Oxybutynin Chloride 5mg Tablets 1 by mouth every day 60tabs Trace Raza MD 12/12/2015 Restasis 0.05% Emulsion Unknown Vitamin B12 1000mcg Tablets ER one tablet by mouth every day ( take after dinner). Unknown Xyzal Allergy 24HR 5mg Tablets 1 by mouth every day for 30 days Unknown Doxepin HCL 25mg Capsules 3 by mouth every day Unknown Folic Acid 1mg Tablets 1 by mouth every day Unknown Ramelteon 8mg Tablets 1 by mouth pm, as needed Unknown Gabapentin 300mg Capsules 1 tab by mouth twice a day 60caps Unknown Polyethylene Glycol 3350 3350NF Pa cket 17 grams of powder in 8 ounce water and drink 1 or 2 times daily. ( hold or stop if having diarrhea). Unknown B Complex-B12 Tablets 1 tab by mouth every day Unknown Vitamin D-3 25mcg (1000 Ut) Capsul es 1 tab by mouth every morning Unknown 0 Magnesium Oxide 400mg Tablets 1 tab by mouth every evening Unknown Proair HFA 108(90Base) mcg/Act Aer osol 2 puffs four times a day as needed Unknown Diazepam 2mg Tablets 2 tabs by mouth every morning 1 qpm prn 2tabs Unknown Trintellix 20mg Tablets 1 tab by mouth every day Unknown Atorvastatin Calcium 20mg Tablets Unknown Xarelto 20mg Tablets 1 by mouth every day managed by hematology for dvt Unknown Symbicort 160-4.5mcg/Act Aerosol 2 puff twice a day Unknown Levothyroxine Sodium 25mcg Tablets 1 by mouth every day Unknown Immunizations CPT Code Status Date Vaccine Lot # [id number] Given 08/07/2017 Influenza Virus Split 3 Yrs And Above For Intramuscular Use Vital Signs Date Vital Result Comment 09/08/2021 2:48pm BP Systolic 110 mmHg BP Diastolic 70 mmHg Heart Rate 70 /min O2 % BldC Oximetry 96 % Respiratory Rate 18 /min Height 60 inches 5'0" Weight 212.00 lb BMI (Body Mass Index) 41.4 kg/m2 [place] Body Weight 100 lb Weight 96.163 kg BSA (Body Surface Area) 1.91 m2 05/18/2021 2:14pm BP Systolic 120 mmHg BP Diastolic 80 mmHg Heart Rate 87 /min O2 % BldC Oximetry 97 % Height 60 inches 5'0" Weight 205.00 lb BMI (Body Mass Index) 40.0 kg/m2 [place] Body Weight 100 lb Weight 92.988 kg BSA (Body Surface Area) 1.89 m2 Results Description No Information Available Procedures Date Code Description Status 05/18/2021 93447 Office/Outpatient Established Lo w MDM 20-29 Min Completed 09/28/2015 [id number] Mammogram Completed Medical Devices Description No Information Available Encounters Type Date Location Provider Dx Diagnosis Office Visit 05/18/2021 2:15p [facility] Pulmonary/Thoracic Dilip Schwartz NDuglas G47.33 Obstructive sleep apnea (adult) (pediatr ic) Assessments Date Code Description Provider 09/08/2021 G47.33 Obstructive sleep apnea (adult) (pediatric) Debra Schwartz NDuglas 05/18/2021 G47.33 Obstructive sleep apnea (adult) (pediatric) Debra Schwartz NDuglas Plan of Treatment Future Appointment(s):* 09/10/2022 12:45 pm - Debra Schwartz NDuglas at [facility] Pulmonary/Thoracic 09/08/2021 - Debra Schwartz N.Jennifer.* G47.33 Obstructive sleep apnea (adult) (pediatric) * * Comments:* 1. No changes were made to the CPAP pressure at today's visit. 2. The patient is aware to call with any problems related to CPAP use, snoring through the mask or return of daytime sleepiness. 3. Per the patient's request, a CPAP supply order has been sent to the [employer] * Follow up:* 1. Follow up in one year to reassess CPAP compliance or sooner should problems develop. Functional Status Description No Information Available Mental Status Description No Information Available Referrals Description No Information Available
--- OUTSIDE RECORDS SUMMARY | 2021-10-05 18:59 | CCD | Continuity of Care Document ---
Author Author Kiran PALMA Organization Unknown Address [address] [place] [address] Phone [phone] Care Team Providers Care Veterinary Virus Serum Inspector Name Role Phone Cynthia Calderon D.O. AUTM Stephon [place] AUTM [phone] Problems Active Problems Provider Date Mild persistent [...] mouth at bedtime as needed insomnia istop [id number] Unkno wn Magnesium 400mg Tablets take one [...] F O2 % BldC Oximetry 95 % [place] Body Weight 100 lb 08/10/2021 1:12pm BP Systolic 130 mmHg BP Diastolic 78 mmHg Height 60.25 inches 5'0.25" Weight 210.25 lb BMI (Body Mass Index) 40.7 kg/m2 Heart Rate 85 /min Respiratory Rate 12 /min Body Temperature 98.9 F O2 % BldC Oximetry 98 % [place] Body Weight 100 lb Results Test Acquired Date Facility Test Result H/L Range Note CBC With Differential 08/15/2021 [place] [id number] [phone] White Blood Count 8.9 10 Normal 4.0-10.0 [...] 36.0-66.0 Lymph % 14.3 % Low 24.0-44.0 [place] % 8.1 % High 2.0-8.0 Eos % 3.7 % High 0.0-3.0 Baso % 1.1 % High 0.0-1.0 Immature Granulocyte % 0.7 % Normal 0-3.0 Nucleated Red Blood Cell % 0.0 % Normal 0-0 Neutrophils # 6.4 10 Normal 1.5-8.5 Lymph # 1.3 10 Low 1.5-5.0 [place] # 0.7 10 Normal 0.0-0.8 Eos # 0.3 10 Normal 0.0-0.5 Baso # 0.1 10 Normal 0.0-0.2 FT4&TSH Panel 08/15/[address] [address] [phone] Thyroid Stimulating Hormone 1.290 uIU/ML Normal 0. 358-3.740 Free T4 1.05 ng/dL Normal 0.76-1.46 Basic Metabolic Profile 08/15/[address] [address] [phone] Glucose, Fasting 128 mg/dL High 70-100 Blood [...] 8.9 mg/dL Normal 8.5-10.1 Liver Profile 08/15/[address] [address] [phone] Ast/Sgot 62 U/L High 7-37 Alt/SGPT 90 U/L High 12-78 Alkaline Phosphatase 72 U/L Normal 45-117 Bilirubin,Total 0.6 mg/dL Normal 0.2-1.0 Bilirubin,Direct 0.2 mg/dL Normal 0.0-0.2 Total Protein 7.9 GM/DL Normal 6.4-8.2 Albumin 3.8 GM/DL Normal 3.2-5.2 Albumin/Globulin Ratio 0.9 Low 1.2-2.2 CBC With Differential 03/17/2021 [facility] Outpatient Cindy serrano (Registration) [address] [place] [address] [phone] White Blood Count 6.8 10 Normal 4.0-10.0 [...] 36.0-66.0 Lymph % 19.8 % Low 24.0-44.0 [place] % 9.8 % High 2.0-8.0 Eos % 3.7 % High 0.0-3.0 Baso % 0.9 % Normal 0.0-1.0 Immature Granulocyte % 0.4 % Normal 0-3.0 Nucleated Red Blood Cell % 0.0 % Normal 0-0 Neutrophils # 4.5 10 Normal 1.5-8.5 Lymph # 1.4 10 Low 1.5-5.0 [place] # 0.7 10 Normal 0.0-0.8 Eos # 0.3 10 Normal 0.0-0.5 Baso # 0.1 10 Normal 0.0-0.2 Comprehensive Metabolic Profil 03/17/2021 [facility] Outpa tient Testing (Registration) [address] [place] [address] [phone] Glucose, Fasting 108 mg/dL High 70-100 Blood [...] [facility] (Registration[facility] 0 [place], [place] [address]420 [phone] Thyroid Stimulating Hormone 1.560 uIU/ML Normal 0. 358-3.740 Free T4 1.27 ng/dL Normal 0.76-1.46 Laboratory test finding 03/17/2021 [facility] Outpatient T esting (Registration) [address] [place] [address] [phone] Total 25(Oh) Vitamin D 51.2 NG/ML Normal 30.0-100. 0 Vitamin B12 & Folate 03/17/2021 [facility] Outpatient Test ing (Registration) [address] [place] [address] [phone] Vitamin B12 Level 1700 pg/mL Normal 3 Folate > 24.0 NG/ML Normal 4 Lipid Panel 03/17/2021 [facility] Outpatient Testi ng (Registration) [address] [place] [address] [phone] Triglycerides Level 68 mg/dL Normal <150 Cholesterol [...] Little GFR Left ESRD GFR <15 on ASSEMBLER WATCH TRAIN 2 Units are mL/min/1.73 m2 Chronic Kidney Disease Staging per NKF: Stage I & II GFR >=60 Normal to Mildly Decreased Stage III GFR 30-59 Moderately Decreased Stage IV GFR 15-29 Severely Decreased Stage V GFR <15 Very Little GFR Left ESRD GFR <15 on ASSEMBLER WATCH TRAIN 3 VITAMIN B12 NORMAL RANGE NORMAL 247 - 911 PG/ML INDETERMINATE 211 - 246 PG/ML DEFICIENT LESS THAN 211 PG/ML 4 FOLATE NORMAL RANGE NORMAL GREATER THAN 5.4 NG/ML INDETERMINATE 3.4-5.4 NG/ML DEFICIENT LESS THAN 3.4 NG/ML Procedures Date Code Description Status 08/10/2021 88112 Office/Outpatient Established Lo w MDM 20-29 Min Completed Medical Devices Description No Information Available Encounters Type Date Location Provider Dx Diagnosis Office Visit 09/14/2021 2:30p [facility] ADORE Henry Z00.00 Encntr for general adult med ical exam w/o abnormal findings G47.33 Obstructive sleep apnea (pete lt) (pediatric) F33.1 Major depressive disorder, r ecurrent, moderate J45.30 Mild persistent asthma, unco mplicated E78.2 Mixed hyperlipidemia E03.9 Hypothyroidism, unspecified 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 K59.00 Constipation, unspecified Office Visit 08/10/2021 1:10p [facility] ADORE Henry K59.00 Constipation, unspecified E03.9 Hypothyroidism, [...] E03.9 Hypothyroidism, unspecified ADORE Ramsey 09/14/2021 Z79.01 intermediate (current) use of antic oagulants ADORE Henry 09/14/2021 K59.00 Constipation, unspecified ADORE [place] 08/10/2021 K59.00 Constipation, unspecified ADORE [place] 08/10/2021 E03.9 Hypothyroidism, unspecified AODRE Ramsey Plan of Treatment Future Appointment(s):* 03/21/2022 1:00 pm - ADORE Henry at [facility] Functional Status Description No Information Available Mental Status Description No Information Available Referrals Description No Information Available
--- OUTSIDE RECORDS SUMMARY | 2021-10-05 18:59 | CCD | Continuity of Care Document ---
Author Author Kiran SCHWARTZ N.PHi Organization Unknown Address [address] [place] [address] Phone [phone] Care Team Providers Care Card Grader Name Role Phone Cynthia Calderon D.O. AUTM [phone] Adelfo Carmen AUTM [phone] Problems Active Problems Provider Date Disturbance of [...] CPT Code Status Date Vaccine Lot # [id number] Given 08/07/2017 Influenza Virus Split 3 Yrs And Above For Intramuscular Use Vital Signs Date Vital Result Comment 09/08/2021 2:48pm BP Systolic 110 mmHg BP Diastolic 70 mmHg Heart Rate 70 /min O2 % BldC Oximetry 96 % Respiratory Rate 18 /min Height 60 inches 5'0" Weight 212.00 lb BMI (Body Mass Index) 41.4 kg/m2 [place] Body Weight 100 lb Weight 96.163 kg BSA (Body Surface Area) 1.91 m2 05/18/2021 2:14pm BP Systolic 120 mmHg BP Diastolic 80 mmHg Heart Rate 87 /min O2 % BldC Oximetry 97 % Height 60 inches 5'0" Weight 205.00 lb BMI (Body Mass Index) 40.0 kg/m2 [place] Body Weight 100 lb Weight 92.988 kg BSA (Body Surface Area) 1.89 m2 Results Description No Information Available Procedures Date Code Description Status 05/18/2021 40871 Office/Outpatient Established Lo w MDM 20-29 Min Completed 09/28/2015 [id number] Mammogram Completed Medical Devices Description No Information Available Encounters Type Date Location Provider Dx Diagnosis Office Visit 05/18/2021 2:15p [facility] Pulmonary/Thoracic Dilip Schwartz NDuglas G47.33 Obstructive sleep apnea (adult) (pediatr ic) Assessments Date Code Description Provider 09/08/2021 G47.33 Obstructive sleep apnea (adult) (pediatric) Debra Schwartz NDuglas 05/18/2021 G47.33 Obstructive sleep apnea (adult) (pediatric) Debra Schwartz NDuglas Plan of Treatment Future Appointment(s):* 09/10/2022 12:45 pm - Debra Schwartz NDuglas at [facility] Pulmonary/Thoracic 09/08/2021 - Debra Schwartz N.Jennifer.* G47.33 [...] supply order has been sent to the [employer]. * Follow up:* 1. Follow up in one year to reassess CPAP compliance or sooner should problems develop. Functional Status Description No Information Available Mental Status Description No Information Available Referrals Description No Information Available
--- OUTSIDE RECORDS SUMMARY | 2021-10-05 18:59 | CCD | Continuity of Care Document ---
Author Author Kiran PALMA Organization Unknown Address [address] [place] [address] Phone [phone] Care Team Providers Care Outside Sales Inspector Name Role Phone Cynthia Calderon D.O. AUTM [phone] Stephon [place] AUTM [phone] Problems Active Problems Provider Date Mild persistent [...] mouth at bedtime as needed insomnia istop [id number] Unkno wn Magnesium 400mg Tablets take one [...] F O2 % BldC Oximetry 95 % [place] Body Weight 100 lb 08/10/2021 1:12pm BP Systolic 130 mmHg BP Diastolic 78 mmHg Height 60.25 inches 5'0.25" Weight 210.25 lb BMI (Body Mass Index) 40.7 kg/m2 Heart Rate 85 /min Respiratory Rate 12 /min Body Temperature 98.9 F O2 % BldC Oximetry 98 % [place] Body Weight 100 lb Results Test Acquired Date Facility Test Result H/L Range Note CBC With Differential 08/15/2021 [place] [id number] [phone] White Blood Count 8.9 10 Normal 4.0-10.0 [...] 36.0-66.0 Lymph % 14.3 % Low 24.0-44.0 [place] % 8.1 % High 2.0-8.0 Eos % 3.7 % High 0.0-3.0 Baso % 1.1 % High 0.0-1.0 Immature Granulocyte % 0.7 % Normal 0-3.0 Nucleated Red Blood Cell % 0.0 % Normal 0-0 Neutrophils # 6.4 10 Normal 1.5-8.5 Lymph # 1.3 10 Low 1.5-5.0 [place] # 0.7 10 Normal 0.0-0.8 Eos # 0.3 10 Normal 0.0-0.5 Baso # 0.1 10 Normal 0.0-0.2 FT4&TSH Panel 08/15/[address] [address] [phone] Thyroid Stimulating Hormone 1.290 uIU/ML Normal 0. 358-3.740 Free T4 1.05 ng/dL Normal 0.76-1.46 Basic Metabolic Profile 08/15/[address] [address] [phone] Glucose, Fasting 128 mg/dL High 70-100 Blood [...] 8.9 mg/dL Normal 8.5-10.1 Liver Profile 08/15/[address] [address] [phone] Ast/Sgot 62 U/L High 7-37 Alt/SGPT 90 U/L High 12-78 Alkaline Phosphatase 72 U/L Normal 45-117 Bilirubin,Total 0.6 mg/dL Normal 0.2-1.0 Bilirubin,Direct 0.2 mg/dL Normal 0.0-0.2 Total Protein 7.9 GM/DL Normal 6.4-8.2 Albumin 3.8 GM/DL Normal 3.2-5.2 Albumin/Globulin Ratio 0.9 Low 1.2-2.2 CBC With Differential 03/17/2021 [facility] Outpatient Cindy serrano (Registration) [address] [place] [address] [phone] White Blood Count 6.8 10 Normal 4.0-10.0 [...] 36.0-66.0 Lymph % 19.8 % Low 24.0-44.0 [place] % 9.8 % High 2.0-8.0 Eos % 3.7 % High 0.0-3.0 Baso % 0.9 % Normal 0.0-1.0 Immature Granulocyte % 0.4 % Normal 0-3.0 Nucleated Red Blood Cell % 0.0 % Normal 0-0 Neutrophils # 4.5 10 Normal 1.5-8.5 Lymph # 1.4 10 Low 1.5-5.0 [place] # 0.7 10 Normal 0.0-0.8 Eos # 0.3 10 Normal 0.0-0.5 Baso # 0.1 10 Normal 0.0-0.2 Comprehensive Metabolic Profil 03/17/2021 [facility] Outpa tient Testing (Registration) [address] [place] [address] [phone] Glucose, Fasting 108 mg/dL High 70-100 Blood [...] Ratio 1.0 Low 1.2-2.2 FT4&TSH Panel 03/17/2021 [facility] Outpatient Testi ng (Registration) 0 [place], [place] [address]2483 [phone] Thyroid Stimulating Hormone 1.560 uIU/ML Normal 0. 358-3.740 Free T4 1.27 ng/dL Normal 0.76-1.46 Laboratory test finding 03/17/2021 [facility] Outpatient T esting (Registration) [address] [place] [address] [phone] Total 25(Oh) Vitamin D 51.2 NG/ML Normal 30.0-100. 0 Vitamin B12 & Folate 03/17/2021 [facility] Outpatient Test ing (Registration) [address] [place] [address] [phone] Vitamin B12 Level 1700 pg/mL Normal 3 Folate > 24.0 NG/ML Normal 4 Lipid Panel 03/17/2021 [facility] Outpatient Testi ng (Registration) [address] [place] [address] [phone] Triglycerides Level 68 mg/dL Normal <150 Cholesterol [...] Little GFR Left ESRD GFR <15 on PLANNING OFFICIAL 2 Units are mL/min/1.73 m2 Chronic Kidney Disease Staging per NKF: Stage I & II GFR >=60 Normal to Mildly Decreased Stage III GFR 30-59 Moderately Decreased Stage IV GFR 15-29 Severely Decreased Stage V GFR <15 Very Little GFR Left ESRD GFR <15 on PLANNING OFFICIAL 3 VITAMIN B12 NORMAL RANGE NORMAL 247 - 911 PG/ML INDETERMINATE 211 - 246 PG/ML DEFICIENT LESS THAN 211 PG/ML 4 FOLATE NORMAL RANGE NORMAL GREATER THAN 5.4 NG/ML INDETERMINATE 3.4-5.4 NG/ML DEFICIENT LESS THAN 3.4 NG/ML Procedures Date Code Description Status 08/10/2021 49585 Office/Outpatient Established Lo w MDM 20-29 Min Completed Medical Devices Description No Information Available Encounters Type Date Location Provider Dx Diagnosis Office Visit 09/14/2021 2:30p 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 ADORE Henry K59.00 Constipation, unspecified E03.9 Hypothyroidism, [...] E03.9 Hypothyroidism, unspecified ADORE Ramsey 09/14/2021 Z79.01 [facility] (current) use of antic oagulants ADORE Henry 09/14/2021 K59.00 Constipation, unspecified ADORE [place] 08/10/2021 K59.00 Constipation, unspecified ADORE [place] 08/10/2021 E03.9 Hypothyroidism, unspecified ADORE Ramsey Plan of Treatment Future Appointment(s):* 03/21/2022 1:00 pm - ADORE Henry at [facility] Functional Status Description No Information Available Mental Status Description No Information Available Referrals Description No Information Available
--- OUTSIDE RECORDS SUMMARY | 2021-10-05 18:59 | CCD | Continuity of Care Document ---
Author Author Kiran SCHWARTZ N.PHi Organization Unknown Address [address] [place] [address] Phone [phone] Care Team Providers Care Senior Clinical Study Manager Name Role Phone Cynthia Calderon D.O. AUTM Adelfo Carmen AUTM [phone] Problems Active Problems Provider Date Disturbance of consciousness Mickie Lane A.NDuglas Onse t: 11/30/2014 Obstructive sleep apnea syndrome Mickie Laen A.NDuglas Onset: 11/30/2014 Social History Type Date [...] CPT Code Status Date Vaccine Lot # [id number] Given 08/07/2017 Influenza Virus Split 3 Yrs And Above For Intramuscular Use Vital Signs Date Vital Result Comment 09/08/2021 2:48pm BP Systolic 110 mmHg BP Diastolic 70 mmHg Heart Rate 70 /min O2 % BldC Oximetry 96 % Respiratory Rate 18 /min Height 60 inches 5'0" Weight 212.00 lb BMI (Body Mass Index) 41.4 kg/m2 [place] Body Weight 100 lb Weight 96.163 kg BSA (Body Surface Area) 1.91 m2 05/18/2021 2:14pm BP Systolic 120 mmHg BP Diastolic 80 mmHg Heart Rate 87 /min O2 % BldC Oximetry 97 % Height 60 inches 5'0" Weight 205.00 lb BMI (Body Mass Index) 40.0 kg/m2 [place] Body Weight 100 lb Weight 92.988 kg BSA (Body Surface Area) 1.89 m2 Results Description No Information Available Procedures Date Code Description Status 09/08/2021 47293 Office/Outpatient Established Lo w MDM 20-29 Min Completed 05/18/2021 21880 Office/Outpatient Established Lo w MDM 20-29 Min Completed 09/28/2015 [id number] Mammogram Completed Medical Devices Description No Information Available Encounters Type Date Location Provider Dx Diagnosis Office Visit 09/08/2021 3:00p [facility] Dilip Schwartz, N.P. G47.33 Obstructive sleep apnea (adult) (pediatr ic) Office Visit 05/18/2021 2:15p [facility] Dilip Schwartz, N.P. G47.33 Obstructive sleep apnea (adult) (pediatr ic) Assessments Date Code Description Provider 09/08/2021 G47.33 Obstructive sleep apnea (adult) (pediatric) Debra Schwartz, N.PHi 05/18/2021 G47.33 Obstructive sleep apnea (adult) (pediatric) Debra Schwartz, N.P. Plan of Treatment Future Appointment(s):* 09/10/2022 12:45 pm - Debra Schwartz, N.PHi at [facility] 09/08/2021 - Debra Schwartz, N.P.* G47.33 Obstructive sleep apnea (adult) (pediatric) * * Comments:* 1. No changes were made to the CPAP pressure at today's visit. 2. The patient is aware to call with any problems related to CPAP use, snoring through the mask or return of daytime sleepiness. 3. Per the patient's request, a CPAP supply order has been sent to the [employer]. * Follow up:* 1. Follow up in one year to reassess CPAP compliance or sooner should problems develop. Functional Status Description No Information Available Mental Status Description No Information Available Referrals Description No Information Available
--- OUTSIDE RECORDS SUMMARY | 2021-10-05 18:59 | CCD | Continuity of Care Document ---
Author Author Kiran SCHWARTZ N.PHi Organization Unknown Address [address] [place] [address] Phone [phone] Care Team Providers Care Electric Serviceman Name Role Phone Cynthia Calderon D.O. AUTM [phone] Adelfo Carmen AUTM [phone] Problems Active Problems Provider Date Disturbance of [...] Tablets 1 by mouth every day 60tabs rTace Raza MD 12/12/2015 Restasis 0.05% Emulsion Unknown [...] CPT Code Status Date Vaccine Lot # [id number] Given 08/07/2017 Influenza Virus Split 3 Yrs And Above For Intramuscular Use Vital Signs Date Vital Result Comment 09/08/2021 2:48pm BP Systolic 110 mmHg BP Diastolic 70 mmHg Heart Rate 70 /min O2 % BldC Oximetry 96 % Respiratory Rate 18 /min Height 60 inches 5'0" Weight 212.00 lb BMI (Body Mass Index) 41.4 kg/m2 [place] Body Weight 100 lb Weight 96.163 kg BSA (Body Surface Area) 1.91 m2 05/18/2021 2:14pm BP Systolic 120 mmHg BP Diastolic 80 mmHg Heart Rate 87 /min O2 % BldC Oximetry 97 % Height 60 inches 5'0" Weight 205.00 lb BMI (Body Mass Index) 40.0 kg/m2 [place] Body Weight 100 lb Weight 92.988 kg BSA (Body Surface Area) 1.89 m2 Results Description No Information Available Procedures Date Code Description Status 05/18/2021 62161 Office/Outpatient Established Lo w MDM 20-29 Min Completed 09/28/2015 [id number] Mammogram Completed Medical Devices Description No Information Available Encounters Type Date Location Provider Dx Diagnosis Office Visit 05/18/2021 2:15p [facility] Pulmonary/Thoracic Dilip Schwartz NDuglas G47.33 Obstructive sleep apnea (adult) (pediatr ic) Assessments Date Code Description Provider 09/08/2021 G47.33 Obstructive sleep apnea (adult) (pediatric) Debra Schwartz NDuglas 05/18/2021 G47.33 Obstructive sleep apnea (adult) (pediatric) Debra Schwartz NDuglas Plan of Treatment Future Appointment(s):* 09/10/2022 12:45 pm - Debra Schwartz NDuglas at [facility] Pulmonary/Thoracic 09/08/2021 - Debra Schwartz N.Jennifer.* G47.33 [...] supply order has been sent to the [employer]. * Follow up:* 1. Follow up in one year to reassess CPAP compliance or sooner should problems develop. Functional Status Description No Information Available Mental Status Description No Information Available Referrals Description No Information Available
--- OUTSIDE RECORDS SUMMARY | 2021-10-05 18:59 | CCD | Continuity of Care Document ---
Author Author Kiran SCHWARTZ N.PHi Organization Unknown Address [address] [place] [address] Phone [phone] Care Team Providers Care Library Circulation Clerk Name Role Phone Cynthia Calderon D.O. AUTM Adelfo Carmen AUTM [phone] Problems Active Problems Provider Date Disturbance of [...] CPT Code Status Date Vaccine Lot # [id number] Given 08/07/2017 Influenza Virus Split 3 Yrs And Above For Intramuscular Use Vital Signs Date Vital Result Comment 09/08/2021 2:48pm BP Systolic 110 mmHg BP Diastolic 70 mmHg Heart Rate 70 /min O2 % BldC Oximetry 96 % Respiratory Rate 18 /min Height 60 inches 5'0" Weight 212.00 lb BMI (Body Mass Index) 41.4 kg/m2 [place] Body Weight 100 lb Weight 96.163 kg BSA (Body Surface Area) 1.91 m2 05/18/2021 2:14pm BP Systolic 120 mmHg BP Diastolic 80 mmHg Heart Rate 87 /min O2 % BldC Oximetry 97 % Height 60 inches 5'0" Weight 205.00 lb BMI (Body Mass Index) 40.0 kg/m2 [place] Body Weight 100 lb Weight 92.988 kg BSA (Body Surface Area) 1.89 m2 Results Description No Information Available Procedures Date Code Description Status 05/18/2021 71855 Office/Outpatient Established Lo w MDM 20-29 Min Completed 09/28/2015 [id number] Mammogram Completed Medical Devices Description No Information Available Encounters Type Date Location Provider Dx Diagnosis Office Visit 05/18/2021 2:15p [facility] Pulmonary/Thoracic Dilip Schwartz NDuglas G47.33 Obstructive sleep apnea (adult) (pediatr ic) Assessments Date Code Description Provider 09/08/2021 G47.33 Obstructive sleep apnea (adult) (pediatric) Debra Schwartz NDuglas 05/18/2021 G47.33 Obstructive sleep apnea (adult) (pediatric) Debra Schwartz NDuglas Plan of Treatment Future Appointment(s):* 09/10/2022 12:45 pm - Debra Schwartz NDuglas at [facility] Pulmonary/Thoracic 09/08/2021 - Debra Schwartz N.Jennifer.* [...] supply order has been sent to the [employer] * Follow up:* 1. Follow up in one year to reassess CPAP compliance or sooner should problems develop. Functional Status Description No Information Available Mental Status Description No Information Available Referrals Description No Information Available
--- OUTSIDE RECORDS SUMMARY | 2021-10-05 18:59 | CCD | Continuity of Care Document ---
Author Author Kiran SCHWARTZ N.PHi Organization Unknown Address [address] [place] [address] Phone [phone] Care Team Providers Care Diesel Engineer Name Role Phone Cynthia Calderon D.O. AUTM Adelfo Carmen AUTM [phone] Problems Active Problems Provider Date Disturbance of [...] CPT Code Status Date Vaccine Lot # [id number] Given 08/07/2017 Influenza Virus Split 3 Yrs And Above For Intramuscular Use Vital Signs Date Vital Result Comment 09/08/2021 2:48pm BP Systolic 110 mmHg BP Diastolic 70 mmHg Heart Rate 70 /min O2 % BldC Oximetry 96 % Respiratory Rate 18 /min Height 60 inches 5'0" Weight 212.00 lb BMI (Body Mass Index) 41.4 kg/m2 [place] Body Weight 100 lb Weight 96.163 kg BSA (Body Surface Area) 1.91 m2 05/18/2021 2:14pm BP Systolic 120 mmHg BP Diastolic 80 mmHg Heart Rate 87 /min O2 % BldC Oximetry 97 % Height 60 inches 5'0" Weight 205.00 lb BMI (Body Mass Index) 40.0 kg/m2 [place] Body Weight 100 lb Weight 92.988 kg BSA (Body Surface Area) 1.89 m2 Results Description No Information Available Procedures Date Code Description Status 05/18/2021 29548 Office/Outpatient Established Lo w MDM 20-29 Min Completed 09/28/2015 [id number] Mammogram Completed Medical Devices Description No Information Available Encounters Type Date Location Provider Dx Diagnosis Office Visit 05/18/2021 2:15p [facility] Pulmonary/Thoracic Dilip Schwartz NDuglas G47.33 Obstructive sleep apnea (adult) (pediatr ic) Assessments Date Code Description Provider 09/08/2021 G47.33 Obstructive sleep apnea (adult) (pediatric) Debra Schwartz NDuglas 05/18/2021 G47.33 Obstructive sleep apnea (adult) (pediatric) Debra Schwartz NDuglas Plan of Treatment Future Appointment(s):* 09/10/2022 12:45 pm - Debra Schwartz NDuglas at [facility] Pulmonary/Thoracic 09/08/2021 - Debra Schwartz N.Jennifer.* [...] supply order has been sent to the [employer]. * Follow up:* 1. Follow up in one year to reassess CPAP compliance or sooner should problems develop. Functional Status Description No Information Available Mental Status Description No Information Available Referrals Description No Information Available
--- OUTSIDE RECORDS SUMMARY | 2021-10-05 19:00 | CCD | Continuity of Care Document ---
Author Author Kiran PALMA Organization Unknown Address [address] [place] [address] Phone [phone] Care Team Providers Care Auto Bumper Mechanic Name Role Phone Cynthia Calderon D.O. AUTM Garland Bibi MS AUTM [phone] Problems Active Problems Provider Date Mild persistent [...] SIG Qnty Indications Ordering Provide r Date Polyethylene Glycol 1500 Powder 1 tablespoon by mouth every day in 8 ounces of water. 7500gm Cynthia Kang D.O. 12/15/2020 Shingrix 50mcg/0.5ML Suspension Re c administer shingrix vaccine at pharmacy 1units Amanda LujanOHi 09/12/2020 Atorvastatin Calcium 20mg Tablets Take One-Half Tablet By Mouth Every Day 45tabs Gina Wynn.O. 09/07/2020 Vitamin D3 Super Strength 50mcg (2000 Ut) Capsules 1 by mouth every day 90caps Gina Hwang.O. 09/09/2019 Restasis 0.05% Emulsion instill 2 drops each eye twice daily Unknown Levocetirizine Dihydrochloride 5mg Tablets 1 by mouth every day Unknown 000 Acetaminophen Extra Strength 500mg Tablets 1 tablet by mouth twice a day for pain Un known Vitamin B 12 500mcg Tablets 1 by mouth every day Unknown Gabapentin 300mg Capsules take one capsule by mouth twice a day Unknown Ramelteon 8mg Tablets 1 tab by mouth at bedtime as needed insomnia istop [id number] Unkno wn Magnesium 400mg Tablets take one tablet by mouth before bed. Unknown Levothyroxine Sodium 25mcg Tablets Take One Tablet By Mouth Every Day 90tabs Cynthia díaz, D.O. Trintellix 20mg Tablets 1 by mouth every day Unknown Folic Acid 0.8mg Capsules 1 in the morning Unknown Symbicort 160-4.5mcg/Act Aerosol Inhale 2 Puffs By Mouth Two Times A Day Unknown 0 Proair HFA 108(90Base) mcg/Act Aer osol 2 puffs by mouth every 4-6 hours as needed Unknown Doxepin HCL 50mg Capsules 1 by mouht at bedtime Unknown Xarelto 20mg Tablets Take One Tablet By Mouth Every Day 90tabs Gina Hwang.O. Diazepam 2mg Tablets Take one tablets three times a day as needed Unknown Oxybutynin Chloride 5mg Tablets 1 tablet by mouth daily Unknown Immunizations Description No Information Available Vital Signs Date Vital Result Comment 08/10/2021 1:12pm BP Systolic 130 mmHg BP Diastolic 78 mmHg Height 60.25 inches 5'0.25" Weight 210.25 lb BMI (Body Mass Index) 40.7 kg/m2 Heart Rate 85 /min Respiratory Rate 12 /min Body Temperature 98.9 F O2 % BldC Oximetry 98 % [place] Body Weight 100 lb 03/13/2021 3:48pm BP Systolic 118 mmHg BP Diastolic 72 mmHg Height 60.25 inches 5'0.25" Weight 206.00 lb BMI (Body Mass Index) 39.9 kg/m2 Heart Rate 100 /min Respiratory Rate 14 /min Body Temperature 98.8 F O2 % BldC Oximetry 98 % [place] Body Weight 100 lb Results Test Acquired Date Facility Test Result H/L Range Note CBC With Differential 03/17/2021 [facility] Outpatient Cindy serrano (Registration) [address] [place] [address] [phone] White Blood Count 6.8 10 Normal 4.0-10.0 [...] 36.0-66.0 Lymph % 19.8 % Low 24.0-44.0 [place] % 9.8 % High 2.0-8.0 Eos % 3.7 % High 0.0-3.0 Baso % 0.9 % Normal 0.0-1.0 Immature Granulocyte % 0.4 % Normal 0-3.0 Nucleated Red Blood Cell % 0.0 % Normal 0-0 Neutrophils # 4.5 10 Normal 1.5-8.5 Lymph # 1.4 10 Low 1.5-5.0 [place] # 0.7 10 Normal 0.0-0.8 Eos # 0.3 10 Normal 0.0-0.5 Baso # 0.1 10 Normal 0.0-0.2 Comprehensive Metabolic Profil 03/17/2021 [facility] Outpa tient Testing (Registration) [address] [place] [address] [phone] Glucose, Fasting 108 mg/dL High 70-100 Blood Urea Nitrogen 17 mg/dL Normal 7-18 Creatinine For GFR 0.86 mg/dL Normal 0.55-1.30 Glomerular Filtration Rate > 60.0 Normal >51 1 Sodium Level 142 mEq/L Normal 136-145 Potassium [...] Ratio 1.0 Low 1.2-2.2 FT4&TSH Panel 03/17/2021 [facility] Outpatient Testi ng (Registration) [address] [place] [id number] [phone] Thyroid Stimulating Hormone 1.560 uIU/ML Normal 0. 358-3.740 Free T4 1.27 ng/dL Normal 0.76-1.46 Laboratory test finding 03/17/2021 [facility] Outpatient T esting (Registration) [address] [place] [address] [phone] Total 25(Oh) Vitamin D 51.2 NG/ML Normal 30.0-100. 0 Vitamin B12 & Folate 03/17/2021 [facility] Outpatient Test ing (Registration) [address] [place] [address] [phone] Vitamin B12 Level 1700 pg/mL Normal 2 Folate > 24.0 NG/ML Normal 3 Lipid Panel 03/17/2021 [facility] Outpatient Testi ng (Registration) [address] [place] [address] [phone] Triglycerides Level 68 mg/dL Normal <150 Cholesterol [...] Little GFR Left ESRD GFR <15 on HEEL SEAT LASTER 2 VITAMIN B12 NORMAL RANGE NORMAL 247 - 911 PG/ML INDETERMINATE 211 - 246 PG/ML DEFICIENT LESS THAN 211 PG/ML 3 FOLATE NORMAL RANGE NORMAL GREATER THAN 5.4 NG/ML INDETERMINATE 3.4-5.4 NG/ML DEFICIENT LESS THAN 3.4 NG/ML Procedures Date Code Description Status 08/10/2021 29695 Office/Outpatient Established Lo w MDM 20-29 Min Completed 03/13/2021 80726 Office/Outpatient Established Mo d MDM 30-39 Min Completed Medical Devices Description No Information Available Encounters Type Date Location Provider Dx Diagnosis Office Visit 08/10/2021 1:10p Family Medicine [facility] ADORE Duke K59.00 Constipation, unspecified E03.9 Hypothyroidism, unspecified Office Visit 03/13/2021 3:40p Family Medicine [facility] ADORE Henry E03.9 Hypothyroidism, unspecified E78.2 Mixed hyperlipidemia J45.30 Mild persistent asthma, unco mplicated Z86.718 Personal history of other ve nous thrombosis and embolism F33.1 Major depressive disorder, r ecurrent, moderate G47.33 Obstructive sleep apnea (pete lt) (pediatric) Z79.01 manager intermediate (current) use of a nticoagulants Assessments Date Code Description Provider 08/10/2021 K59.00 Constipation, unspecified ADORE [place] 08/10/2021 E03.9 Hypothyroidism, unspecified ADORE Ramsey 03/13/2021 E03.9 Hypothyroidism, unspecified ADORE Ramsey 03/13/2021 E78.2 Mixed hyperlipidemia ADORE Mcrae 03/13/2021 J45.30 Mild persistent asthma, uncompli cated ADORE Henry 03/13/2021 Z86.718 Personal history of other venous thrombosis and embolism ADORE Henry 03/13/2021 F33.1 Major depressive disorder, recur rent, moderate ADORE Henry 03/13/2021 G47.33 Obstructive sleep apnea (adult) (pediatric) ADORE Henry 03/13/2021 Z79.01 intermediate (current) use of antic oagulants ADORE Henry Plan of Treatment Future Appointment(s):* 09/14/2021 2:30 pm - ADORE Henry at [facility] Functional Status Description No Information Available Mental Status Description No Information Available Referrals Description No Information Available
--- OUTSIDE RECORDS SUMMARY | 2021-10-05 19:00 | CCD | Continuity of Care Document ---
Author Author Kiran PALMA Organization Unknown Address [address] [place] [address] Phone [phone] Care Team Providers Care Automatic Seamer Name Role Phone Cynthia Calderon D.O. AUTM [phone] Garland Bibi MS AUTM [phone] Problems Active Problems Provider Date Mild persistent [...] mouth at bedtime as needed insomnia istop [id number] Unkno wn Magnesium 400mg Tablets take one [...] F O2 % BldC Oximetry 98 % [place] Body Weight 100 lb 03/13/2021 3:48pm BP Systolic 118 mmHg BP Diastolic 72 mmHg Height 60.25 inches 5'0.25" Weight 206.00 lb BMI (Body Mass Index) 39.9 kg/m2 Heart Rate 100 /min Respiratory Rate 14 /min Body Temperature 98.8 F O2 % BldC Oximetry 98 % [place] Body Weight 100 lb Results Test Acquired Date Facility Test Result H/L Range Note CBC With Differential 03/17/2021 [facility] Outpatient Cindy serrano (Registration) [address] [place] [address] [phone] White Blood Count 6.8 10 Normal 4.0-10.0 [...] 36.0-66.0 Lymph % 19.8 % Low 24.0-44.0 [place] % 9.8 % High 2.0-8.0 Eos % 3.7 % High 0.0-3.0 Baso % 0.9 % Normal 0.0-1.0 Immature Granulocyte % 0.4 % Normal 0-3.0 Nucleated Red Blood Cell % 0.0 % Normal 0-0 Neutrophils # 4.5 10 Normal 1.5-8.5 Lymph # 1.4 10 Low 1.5-5.0 [place] # 0.7 10 Normal 0.0-0.8 Eos # 0.3 10 Normal 0.0-0.5 Baso # 0.1 10 Normal 0.0-0.2 Comprehensive Metabolic Profil 03/17/2021 [facility] Outpa tient Testing (Registration) [address] [place] [address] [phone] Glucose, Fasting 108 mg/dL High 70-100 Blood [...] 1.0 Low 1.2-2.2 FT4&TSH Panel 03/17/2021 [facility] Outpatient Testi ng (Registration) [address] [place] [id number] [phone] Thyroid Stimulating Hormone 1.560 uIU/ML Normal 0. 358-3.740 Free T4 1.27 ng/dL Normal 0.76-1.46 Laboratory test finding 03/17/2021 [facility] Outpatient T esting (Registration) [address] [place] [address] [phone] Total 25(Oh) Vitamin D 51.2 NG/ML Normal 30.0-100. 0 Vitamin B12 & Folate 03/17/2021 [facility] Outpatient Test ing (Registration) [address] [place] [address] [phone] Vitamin B12 Level 1700 pg/mL Normal 2 Folate > 24.0 NG/ML Normal 3 Lipid Panel 03/17/2021 [facility] Outpatient Testi ng (Registration) [address] [place] [address] [phone] Triglycerides Level 68 mg/dL Normal <150 Cholesterol [...] Little GFR Left ESRD GFR <15 on PHYSICAL METALLURGIST 2 VITAMIN B12 NORMAL RANGE NORMAL 247 - 911 PG/ML INDETERMINATE 211 - 246 PG/ML DEFICIENT LESS THAN 211 PG/ML 3 FOLATE NORMAL RANGE NORMAL GREATER THAN 5.4 NG/ML INDETERMINATE 3.4-5.4 NG/ML DEFICIENT LESS THAN 3.4 NG/ML Procedures Date Code Description Status 08/10/2021 93973 Office/Outpatient Established Lo w MDM 20-29 Min Completed 03/13/2021 20749 Office/Outpatient Established Mo d MDM 30-39 Min Completed Medical Devices Description No Information Available Encounters Type Date Location Provider Dx Diagnosis Office Visit 08/10/2021 1:10p Family Medicine [facility] ADORE Duke K59.00 Constipation, unspecified E03.9 Hypothyroidism, unspecified Office Visit 03/13/2021 3:40p Family Medicine [facility] ADORE Henry E03.9 Hypothyroidism, unspecified E78.2 Mixed hyperlipidemia J45.30 Mild persistent asthma, unco mplicated Z86.718 Personal history of other ve nous thrombosis and embolism F33.1 Major depressive disorder, r ecurrent, moderate G47.33 Obstructive sleep apnea (pete lt) (pediatric) Z79.01 terminal operator (current) use of a nticoagulants Assessments Date [...] apnea (adult) (pediatric) ADORE Henry 03/13/2021 Z79.01 custodial (current) use of antic oagulants ADORE Henry Plan of Treatment Future Appointment(s):* 09/14/2021 2:30 pm - ADORE Henry at [facility] Functional Status Description No Information Available Mental Status Description No Information Available Referrals Description No Information Available
--- OUTSIDE RECORDS SUMMARY | 2021-10-05 19:00 | CCD | Continuity of Care Document ---
Author Author Kiran BEARD P.A.-C. Organization Unknown Address [address] [place] [address] Phone [phone] Care Team Providers Care Scrap Drop Crane Operator Name Role Phone Shay Shea AUTM [phone] Problems Description No Information Available Social History Type Date Description Comments Sex Unknown Allergies, Adverse Reactions, Alerts Active Allergies Criticality Reaction | Severity Comments Date Sulfa Antibiotics Unable to assess criticality 10/20/2019 Medications Active Medications SIG Qnty Indications Ordering Provide r Date Meclizine HCL 25mg Tablets 1 by mouth three times a day as needed dizziness 30tabs R42 Jeanna Lat if, M.DHi 04/28/2021 Immunizations Description No Information Available Vital Signs Date Vital Result Comment 07/26/2021 5:42am BP Systolic 110 mmHg BP Diastolic 80 mmHg Heart Rate 80 /min Respiratory Rate 20 /min 04/28/2021 7:57am BP Systolic 130 mmHg BP Diastolic 80 mmHg Heart Rate 78 /min Respiratory Rate 16 /min Results Description No Information Available Procedures Date Code Description Status 07/26/2021 68762 Office/Outpatient Established Mo d MDM 30-39 Min Completed 04/28/2021 69246 Office/Outpatient Established Mo d MDM 30-39 Min Completed 01/25/2021 63466 Phone Evaluation/Management By Jennifer lala 21-30 Min Completed Medical Devices Description No Information Available Encounters Type Date Location Provider Dx Diagnosis Office Visit 07/26/2021 1:45p Main office - [place] Meaghan pozo P.A.-C. 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 07/26/2021 M26.633 Articular disc disorder of bilat eral temporomandibular joint Meaghan Beard P.A.-C. 07/26/2021 R41.840 Attention and concentration defi cit Jennifer Muro.A.-C. 07/26/2021 R42 Dizziness and giddiness Meaghan Beard P.A.-C. 07/26/2021 F32.89 Other specified depressive episo jackelin Meaghan Beard P.A.-C. 07/26/2021 F51.02 Adjustment insomnia Meaghan pozo P.A.-C. 04/28/2021 R25.8 Other abnormal involuntary movem ents Meaghan Beard P.A.-C. 04/28/2021 R41.840 Attention and concentration defi cit Meaghan Beard P.A.-C. 04/28/2021 G44.229 Chronic tension-type headache, n ot intractable Meaghan Beard, P.A.-C. 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 04/28/2021 F51.02 Adjustment insomnia Meaghan pozo, P.A.-C. 04/28/2021 F32.89 Other specified depressive episo jackelin Meaghan Beard, P.A.-C. 04/28/2021 R42 Dizziness and giddiness Meaghan Beard, P.A.-C. 01/25/2021 G44.229 Chronic tension-type headache, n ot intractable Meaghan Beard, P.A.-C. 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 01/25/2021 F32.89 Other specified depressive episo jackelin Meaghan Beard, P.A.-C. 01/25/2021 F51.02 Adjustment insomnia Meaghan pozo, P.A.-C. 01/25/2021 R41.840 Attention and concentration defi cit Meaghan Beard, P.A.-C. 01/25/2021 R25.8 Other abnormal involuntary movem ents Jennifer Muro.A.-C. Plan of Treatment Future Appointment(s):* 10/25/2021 1:45 pm - Thanh Muro-Ivette at [facility] 07/26/2021 - [place] MuroA.-C.* G44.229 Chronic tension-type headache, not intractable* Comments:* Stable. 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 * R41.840 Attention and concentration deficit* Comments:* Improving as her mood improves. * R42 Dizziness and giddiness* Comments:* Resolved. * F32.89 Other specified depressive episodes* Comments:* Follow up with behavioral health. * F51.02 Adjustment insomnia* Comments:* Improved. Follow up with behavioral health. * Follow up:* 3 months Functional Status Description No Information Available Mental Status Description No Information Available Referrals Description No Information Available"
--- OUTSIDE RECORDS SUMMARY | 2021-10-05 19:00 | CCD | Continuity of Care Document ---
Author Author Kiran PALMA Organization Unknown Address [address] [place] [address] Phone [phone] Care Team Providers Care Section Beamer Name Role Phone Cynthia Calderon D.O. AUTM Garland Bibi MS AUTM [phone] Problems Active Problems Provider Date Mild persistent [...] mouth at bedtime as needed insomnia istop [id number] Unkno wn Magnesium 400mg Tablets take one [...] F O2 % BldC Oximetry 98 % [place] Body Weight 100 lb 03/13/2021 3:48pm BP Systolic 118 mmHg BP Diastolic 72 mmHg Height 60.25 inches 5'0.25" Weight 206.00 lb BMI (Body Mass Index) 39.9 kg/m2 Heart Rate 100 /min Respiratory Rate 14 /min Body Temperature 98.8 F O2 % BldC Oximetry 98 % [place] Body Weight 100 lb Results Test Acquired Date Facility Test Result H/L Range Note CBC With Differential 08/15/[address] [address] [phone] White Blood Count 8.9 10 Normal 4.0-10.0 [...] 36.0-66.0 Lymph % 14.3 % Low 24.0-44.0 [place] % 8.1 % High 2.0-8.0 Eos % 3.7 % High 0.0-3.0 Baso % 1.1 % High 0.0-1.0 Immature Granulocyte % 0.7 % Normal 0-3.0 Nucleated Red Blood Cell % 0.0 % Normal 0-0 Neutrophils # 6.4 10 Normal 1.5-8.5 Lymph # 1.3 10 Low 1.5-5.0 [place] # 0.7 10 Normal 0.0-0.8 Eos # 0.3 10 Normal 0.0-0.5 Baso # 0.1 10 Normal 0.0-0.2 FT4&TSH Panel 08/15/[address] [address] [phone] Thyroid Stimulating Hormone 1.290 uIU/ML Normal 0. 358-3.740 Free T4 1.05 ng/dL Normal 0.76-1.46 Basic Metabolic Profile 08/15/[address] [address] [phone] Glucose, Fasting 128 mg/dL High 70-100 Blood [...] 8.9 mg/dL Normal 8.5-10.1 Liver Profile 08/15/[address] [address] [phone] Ast/Sgot 62 U/L High 7-37 Alt/SGPT 90 U/L High 12-78 Alkaline Phosphatase 72 U/L Normal 45-117 Bilirubin,Total 0.6 mg/dL Normal 0.2-1.0 Bilirubin,Direct 0.2 mg/dL Normal 0.0-0.2 Total Protein 7.9 GM/DL Normal 6.4-8.2 Albumin 3.8 GM/DL Normal 3.2-5.2 Albumin/Globulin Ratio 0.9 Low 1.2-2.2 CBC With Differential 03/17/2021 [facility] Outpatient Cindy jorgensenbrady (Registration) [address] [place] [address] [phone] White Blood Count 6.8 10 Normal 4.0-10.0 [...] 36.0-66.0 Lymph % 19.8 % Low 24.0-44.0 [place] % 9.8 % High 2.0-8.0 Eos % 3.7 % High 0.0-3.0 Baso % 0.9 % Normal 0.0-1.0 Immature Granulocyte % 0.4 % Normal 0-3.0 Nucleated Red Blood Cell % 0.0 % Normal 0-0 Neutrophils # 4.5 10 Normal 1.5-8.5 Lymph # 1.4 10 Low 1.5-5.0 [place] # 0.7 10 Normal 0.0-0.8 Eos # 0.3 10 Normal 0.0-0.5 Baso # 0.1 10 Normal 0.0-0.2 Comprehensive Metabolic Profil 03/17/2021 [facility] Outpa tient Testing (Registration) [address] [id number] [phone] Glucose, Fasting 108 mg/dL High 70-100 Blood [...] Ratio 1.0 Low 1.2-2.2 FT4&TSH Panel 03/17/2021 [facility] Outpatient Testi ng (Registration) [address] [place], [place] [id number] [phone] Thyroid Stimulating Hormone 1.560 uIU/ML Normal 0. 358-3.740 Free T4 1.27 ng/dL Normal 0.76-1.46 Laboratory test finding 03/17/2021 [facility] Outpatient T esting (Registration) [address] [place] [address] [phone] Total 25(Oh) Vitamin D 51.2 NG/ML Normal 30.0-100. 0 Vitamin B12 & Folate 03/17/2021 [facility] Outpatient Test ing (Registration) [address] [place] [address] [phone] Vitamin B12 Level 1700 pg/mL Normal 3 Folate > 24.0 NG/ML Normal 4 Lipid Panel 03/17/2021 [facility] Outpatient Testi ng (Registration) [address] [place] [address] [phone] Triglycerides Level 68 mg/dL Normal <150 Cholesterol [...] Little GFR Left ESRD GFR <15 on PERFORMING [employer]S TECH[employer]ICIANS 2 Units are mL/min/1.73 m2 Chronic Kidney Disease Staging per NKF: Stage I & II GFR >=60 Normal to Mildly Decreased Stage III GFR 30-59 Moderately Decreased Stage IV GFR 15-29 Severely Decreased Stage V GFR <15 Very Little GFR Left ESRD GFR <15 on PERFORMING [employer] TE[employer] 3 VITAMIN B12 NORMAL RANGE NORMAL 247 - 911 PG/ML INDETERMINATE 211 - 246 PG/ML DEFICIENT LESS THAN 211 PG/ML 4 FOLATE NORMAL RANGE NORMAL GREATER THAN 5.4 NG/ML INDETERMINATE 3.4-5.4 NG/ML DEFICIENT LESS THAN 3.4 NG/ML Procedures Date Code Description Status 08/10/2021 65483 Office/Outpatient Established Lo w MDM 20-29 Min Completed 03/13/2021 73559 Office/Outpatient Established Mo d MDM 30-39 Min Completed Medical Devices Description No Information Available Encounters Type Date Location Provider Dx Diagnosis Office Visit 08/10/2021 1:10p [facility] ADORE Henry K59.00 Constipation, unspecified E03.9 Hypothyroidism, unspecified Office Visit 03/13/2021 3:40p [facility] ADORE Henry E03.9 Hypothyroidism, unspecified E78.2 Mixed hyperlipidemia J45.30 Mild persistent asthma, unco mplicated Z86.718 Personal history of other ve nous thrombosis and embolism F33.1 Major depressive disorder, r ecurrent, moderate G47.33 Obstructive sleep apnea (pete lt) (pediatric) Z79.01 half-way (current) use of a nticoagulants Assessments Date [...] apnea (adult) (pediatric) ADORE Henry 03/13/2021 Z79.01 half-way (current) use of antic oagulants ADORE Henry Plan of Treatment Future Appointment(s):* 09/14/2021 2:30 pm - ADORE Henry at [facility] Functional Status Description No Information Available Mental Status Description No Information Available Referrals Description No Information Available
--- OUTSIDE RECORDS SUMMARY | 2021-10-05 19:00 | CCD | Continuity of Care Document ---
Author Author Kiran BEARD P.A.-C. Organization Unknown Address [address] [place] [address] Phone [phone] Care Team Providers Care Maintenance Machine Repairer Name Role Phone Shay Shea AUTM [phone] Problems Description No Information Available Social History Type Date Description Comments Sex Unknown Allergies, Adverse Reactions, Alerts Active Allergies Criticality Reaction | Severity Comments Date Sulfa Antibiotics Unable to assess criticality 10/20/2019 Medications Active Medications SIG Qnty Indications Ordering Provide r Date Meclizine HCL 25mg Tablets 1 by mouth three times a day as needed dizziness 30tabs R42 Jeanna Jacklyn buenrostro M.D. 04/28/2021 Immunizations Description No Information Available Vital Signs Date Vital Result Comment 04/28/2021 7:57am BP Systolic 130 mmHg BP Diastolic 80 mmHg Heart Rate 78 /min Respiratory Rate 16 /min 07/25/2020 6:02am BP Systolic 110 mmHg BP Diastolic 80 mmHg Heart Rate 80 /min Respiratory Rate 20 /min Results Description No Information Available Procedures Date Code Description Status 04/28/2021 16830 Office/Outpatient Established Mo d MDM 30-39 Min Completed 01/25/2021 85250 Phone Evaluation/Management By Jennifer lala 21-30 Min Completed Medical Devices Description No Information Available Encounters Type Date Location Provider Dx Diagnosis Office Visit 04/28/2021 12:30p Main office - Lucama Meaghan pozo P.A.-C. 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 07/26/2021 M26.633 Articular disc disorder of bilat eral temporomandibular joint Meaghan Beard, P.A.-C. 07/26/2021 R41.840 Attention and concentration defi cit Meaghan Beard, P.A.-C. 07/26/2021 R42 Dizziness and giddiness Meaghan Beard, P.A.-C. 07/26/2021 F32.89 Other specified depressive episo jackelin Meaghan Beard, P.A.-C. 07/26/2021 F51.02 Adjustment insomnia Meaghan pozo, P.A.-C. 04/28/2021 R25.8 Other abnormal involuntary movem ents Meaghan Beard P.A.-C. 04/28/2021 R41.840 Attention and concentration defi cit Meaghan Beard, P.A.-C. 04/28/2021 G44.229 Chronic tension-type headache, n ot intractable Meaghan Beard, P.A.-C. 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 04/28/2021 F51.02 Adjustment insomnia Meaghan pozo, P.A.-C. 04/28/2021 F32.89 Other specified depressive episo jackelin Meaghan Beard, P.A.-C. 04/28/2021 R42 Dizziness and giddiness [facility] 01/25/2021 G44.229 Chronic tension-type headache, n ot intractable Meaghan Beard P.A.-C. 01/25/2021 M26.633 Articular disc disorder of bilat eral temporomandibular joint [facility] 01/25/2021 F32.89 Other specified depressive episo jackelin Marbella MuroAHi-C. 01/25/2021 F51.02 Adjustment insomnia Marbella QuiñonezAHi-C. 01/25/2021 R41.840 Attention and concentration defi cit [facility]. 01/25/2021 R25.8 Other abnormal involuntary movem ents Meaghan Beard P.A.-C. Plan of Treatment No Information Available Functional Status Description No Information Available Mental Status Description No Information Available Referrals Description No Information Available"
--- OUTSIDE RECORDS SUMMARY | 2021-10-05 19:00 | CCD | Continuity of Care Document ---
Author Author Kiran PALMA Organization Unknown Address [address] [place] [address] Phone [phone] Care Team Providers Care Packaging Manager Name Role Phone Cynthia Calderon D.O. AUTM [phone] Garland Bibi MS AUTM [phone] Problems Active Problems Provider Date Mild persistent [...] mouth at bedtime as needed insomnia istop [id number] Unkno wn Magnesium 400mg Tablets take one [...] F O2 % BldC Oximetry 98 % [place] Body Weight 100 lb 03/13/2021 3:48pm BP Systolic 118 mmHg BP Diastolic 72 mmHg Height 60.25 inches 5'0.25" Weight 206.00 lb BMI (Body Mass Index) 39.9 kg/m2 Heart Rate 100 /min Respiratory Rate 14 /min Body Temperature 98.8 F O2 % BldC Oximetry 98 % [place] Body Weight 100 lb Results Test Acquired Date Facility Test Result H/L Range Note CBC With Differential 03/17/2021 [facility] Outpatient Cindy serrano (Registration) [address] [place] [address] [phone] White Blood Count 6.8 10 Normal 4.0-10.0 [...] 36.0-66.0 Lymph % 19.8 % Low 24.0-44.0 [place] % 9.8 % High 2.0-8.0 Eos % 3.7 % High 0.0-3.0 Baso % 0.9 % Normal 0.0-1.0 Immature Granulocyte % 0.4 % Normal 0-3.0 Nucleated Red Blood Cell % 0.0 % Normal 0-0 Neutrophils # 4.5 10 Normal 1.5-8.5 Lymph # 1.4 10 Low 1.5-5.0 [place] # 0.7 10 Normal 0.0-0.8 Eos # 0.3 10 Normal 0.0-0.5 Baso # 0.1 10 Normal 0.0-0.2 Comprehensive Metabolic Profil 03/17/2021 [facility] Outpa tient Testing (Registration) [address] [place] [address] [phone] Glucose, Fasting 108 mg/dL High 70-100 Blood [...] Ratio 1.0 Low 1.2-2.2 FT4&TSH Panel 03/17/2021 [facility] Outpatient Testi ng (Registration) [address] [place] [id number] [phone] Thyroid Stimulating Hormone 1.560 uIU/ML Normal 0. 358-3.740 Free T4 1.27 ng/dL Normal 0.76-1.46 Laboratory test finding 03/17/2021 [facility] Outpatient T esting (Registration) [address] [place] [address] [phone] Total 25(Oh) Vitamin D 51.2 NG/ML Normal 30.0-100. 0 Vitamin B12 & Folate 03/17/2021 [facility] Outpatient Test ing (Registration) [address] [place] [address] [phone] Vitamin B12 Level 1700 pg/mL Normal 2 Folate > 24.0 NG/ML Normal 3 Lipid Panel 03/17/2021 [facility] Outpatient Testi ng (Registration) [address] [place] [address] [phone] Triglycerides Level 68 mg/dL Normal <150 Cholesterol [...] Little GFR Left ESRD GFR <15 on MEDICAL EDUCATION COORDINATOR 2 VITAMIN B12 NORMAL RANGE NORMAL 247 - 911 PG/ML INDETERMINATE 211 - 246 PG/ML DEFICIENT LESS THAN 211 PG/ML 3 FOLATE NORMAL RANGE NORMAL GREATER THAN 5.4 NG/ML INDETERMINATE 3.4-5.4 NG/ML DEFICIENT LESS THAN 3.4 NG/ML Procedures Date Code Description Status 08/10/2021 20237 Office/Outpatient Established Lo w MDM 20-29 Min Completed 03/13/2021 45269 Office/Outpatient Established Mo d MDM 30-39 Min Completed Medical Devices Description No Information Available Encounters Type Date Location Provider Dx Diagnosis Office Visit 08/10/2021 1:10p [facility] ADORE Duke K59.00 Constipation, unspecified E03.9 Hypothyroidism, unspecified Office Visit 03/13/2021 3:40p Family Medicine [facility] ADORE Henry E03.9 Hypothyroidism, unspecified E78.2 Mixed hyperlipidemia J45.30 Mild persistent asthma, unco mplicated Z86.718 Personal history of other ve nous thrombosis and embolism F33.1 Major depressive disorder, r ecurrent, moderate G47.33 Obstructive sleep apnea (pete lt) (pediatric) 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
--- OUTSIDE RECORDS SUMMARY | 2021-10-05 19:01 | CCD ---
Author Author [facility] Organization [facility] Address Unknown Phone Unavailable Care Team Providers Care Dredge Captain Name Role Phone Festus Paez MD Unavailable Unavailab le Fernandoebianroma, Festus Maldonado MD Unavailable Unavailab le Jeannine, Festus Maldonado MD Unavailable Unavailab Festus Nicole MD Unavailable Unavailab giovanni Paez, Festus Maldonado MD Unavailable Unavailab giovanni Paez, Festus Maldonado MD Unavailable Unavailab Festus Nicole MD Unavailable Unavailab giovanni Paez, Festus Maldonado MD Unavailable Unavailab giovanni Paez, Festus Maldonado MD Unavailable Unavailab Festus Nicole MD Unavailable Unavailab le Panebianco, Festus Maldonado MD Unavailable Unavailab le Panebianco, Festus Maldonado MD Unavailable Unavailab le Panebianco, Festus Maldonado MD Unavailable Unavailab le Panebianco, Festus Maldonado MD Unavailable Unavailab le Panebianco, Festus Maldonado MD Unavailable Unavailab le Panebianco, Festus Maldonado MD Unavailable Unavailab le Panebianco, Festus Maldonado MD Unavailable Unavailab le Panebianco, Festus Maldonado MD Unavailable Unavailab le Panebianco, Festus Maldonado MD Unavailable Unavailab le Panebianco, Festus Maldonado MD Unavailable Unavailab le Panebianco, Festus Maldonado MD Unavailable Unavailab le Panebianco, Festus Maldonado MD Unavailable Unavailab le Panebianco, Festus Maldonado MD Unavailable Unavailab le Panebianco, Festus Maldonado MD Unavailable Unavailab le Panebianco, Festus Maldonado MD Unavailable Unavailab le Panebianco, Festus Maldonado MD Unavailable Unavailab le Panebianco, Festus Maldonado MD Unavailable Unavailab le ESTEBAN NAIDU MD Unavailable Unavailable ESTEBAN NAIDU MD Unavailable Unavailable ESTEBAN NAIDU MD Unavailable Unavailable ESTEBAN NAIDU MD Unavailable Unavailable ESTEBAN NAIDU MD Unavailable Unavailable ESTEBAN NAIDU MD Unavailable Unavailable ESTEBAN NAIDU MD Unavailable Unavailable ESTEBAN NAIDU MD Unavailable Unavailable ESTEBAN NAIDU MD Unavailable Unavailable ESTEBAN NAIDU MD Unavailable Unavailable ESTEBAN NAIDU MD Unavailable Unavailable ESTEBAN NAIDU MD Unavailable Unavailable ESTEBAN NAIDU MD Unavailable Unavailable ESTEBAN NAIDU MD Unavailable Unavailable ESTEBAN NAIDU MD Unavailable Unavailable ESTEBAN NAIDU MD Unavailable Unavailable ESTEBAN NAIDU MD Unavailable Unavailable ESTEBAN NAIDU MD Unavailable Unavailable ESTEBAN NAIDU MD Unavailable Unavailable ESTEBAN NAIDU MD Unavailable Unavailable ESTEBAN NAIDU MD Unavailable Unavailable ESTEBAN NAIDU MD Unavailable Unavailable ESTEBAN NAIDU MD Unavailable Unavailable CHROSTOWSKI, ESTEBAN MD Unavailable Unavailable CHROSTOWSKI, ESTEBAN MD Unavailable Unavailable CHROSTOWSKI, ESTEBAN MD Unavailable Unavailable CHROSTOWSKI, ESTEBAN MD Unavailable Unavailable CHROSTOWSKI, ESTEBAN MD Unavailable Unavailable CHROSTOWSKI, ESTEBAN MD Unavailable Unavailable CHROSTOWSKI, ESTEBAN MD Unavailable Unavailable CHROSTOWSKI, ESTEBAN MD Unavailable Unavailable CHROSTOWSKI, ESTEBAN MD Unavailable Unavailable CHROSTOWSKI, ESTEBAN MD Unavailable Unavailable CHROSTOWSKI, ESTEBAN MD Unavailable Unavailable CHROSTOWSKI, ESTEBAN MD Unavailable Unavailable CHROSTOWSKI, ESTEBAN MD Unavailable Unavailable CHROSTOWSKI, ESTEBAN MD Unavailable Unavailable CHROSTOWSKI, ESTEBAN MD Unavailable Unavailable CHROSTOWSKI, ESTEBAN MD Unavailable Unavailable RIKA-MARYCARMEN, TOÑA DO Unavailable Unavailable RIKA-MARYCARMEN, TOÑA DO Unavailable Unavailable RIKA-MARYCARMEN, TOÑA DO Unavailable Unavailable RIKA-MARYCARMEN, TOÑA DO Unavailable Unavailable RIKA-MARYCARMEN, TOÑA DO Unavailable Unavailable RIKA-MARYCARMEN, TOÑA DO Unavailable Unavailable RIKA-MARYCARMEN, TOÑA DO Unavailable Unavailable RIKA-MARYCARMEN, TOÑA DO Unavailable Unavailable RIKA-MARYCARMEN, TOÑA DO Unavailable Unavailable RIKA-MARYCARMEN, TOÑA DO Unavailable Unavailable RIKA-MARYCARMEN, TOÑA DO Unavailable Unavailable RIKA-MARYCARMEN, TOÑA DO Unavailable Unavailable RIKA-MARYCARMEN, TOÑA DO Unavailable Unavailable RIKA-MARYCARMEN, TOÑA DO Unavailable Unavailable RIKA-MARYCARMEN, TOÑA DO Unavailable Unavailable RIKA-MARYCARMEN, TOÑA DO Unavailable Unavailable RIKA-MARYCARMEN, TOÑA DO Unavailable Unavailable RIKA-MARYCARMEN, TOÑA DO Unavailable Unavailable RIKA-MARYCARMEN, TOÑA DO Unavailable Unavailable RIKA-MARYCARMEN, TOÑA DO Unavailable Unavailable RIKA-MARYCARMEN, TOÑA DO Unavailable Unavailable RIKA-MARYCARMEN, TOÑA DO Unavailable Unavailable RIKA-MARYCARMEN, TOÑA DO Unavailable Unavailable RIKA-MARYCARMEN, TOÑA DO Unavailable Unavailable RIKA-MARYCARMEN, TOÑA DO Unavailable Unavailable RIKA-MARYCARMEN, TOÑA DO Unavailable Unavailable RIKA-MARYCARMEN, TOÑA DO Unavailable Unavailable RIKA-MARYCARMEN, TOÑA DO Unavailable Unavailable RIKA-MARYCARMEN, TOÑA DO Unavailable Unavailable RIKA-MARYCARMEN, TOÑA DO Unavailable Unavailable RIKA-MARYCARMEN, TOÑA DO Unavailable Unavailable RIKA-MARYCARMEN, TOÑA DO Unavailable Unavailable RIKA-MARYCARMEN, TOÑA DO Unavailable Unavailable RIKA-MARYCARMEN, TOÑA DO Unavailable Unavailable RIKA-MARYCARMEN, TOÑA DO Unavailable Unavailable RIKA-MARYCARMEN, TOÑA DO Unavailable Unavailable RIKA-MARYCARMEN, TOÑA DO Unavailable Unavailable RIKA-MARYCARMEN, TOÑA DO Unavailable Unavailable RIKA-MARYCARMEN, TOÑA DO Unavailable Unavailable RIKA-MARYCARMEN, TOÑA DO Unavailable Unavailable RIKA-MARYCARMEN, TOÑA DO Unavailable Unavailable RIKA-MARYCARMEN, TOÑA DO Unavailable Unavailable RIKA-MARYCARMEN, TOÑA DO Unavailable Unavailable RIKA-MARYCARMEN, TOÑA DO Unavailable Unavailable RIKA-MARYCARMEN, TOÑA DO Unavailable Unavailable RIKA-MARYCARMEN, TOÑA DO Unavailable Unavailable RIKA-MARYCARMEN, TOÑA DO Unavailable Unavailable RIKA-MARYCARMEN, TOÑA DO Unavailable Unavailable RIKA-MARYCARMEN, TOÑA DO Unavailable Unavailable RIKA-MARYCARMEN, TOÑA DO Unavailable Unavailable RIKA-MARYCARMEN, TOÑA DO Unavailable Unavailable RIKA-MARYCARMEN, TOÑA DO Unavailable Unavailable RIKA-MARYCARMEN, TOÑA DO Unavailable Unavailable RIKA-MARYCARMEN, TOÑA DO Unavailable Unavailable RIKA-MARYCARMEN, TOÑA DO Unavailable Unavailable RIKA-MARYCARMEN, TOÑA DO Unavailable Unavailable RIKA-MARYCARMEN, TOÑA DO Unavailable Unavailable RIKA-MARYCARMEN, TOÑA DO Unavailable Unavailable RIKA-MARYCARMEN, TOÑA DO Unavailable Unavailable RIKA-MARYCARMEN, TOÑA DO Unavailable Unavailable RIKA-MARYCARMEN, TOÑA DO Unavailable Unavailable RIKA-MARYCARMEN, TOÑA DO Unavailable Unavailable RIKA-MARYCARMEN, TOÑA DO Unavailable Unavailable RIKA-MARYCARMEN, TOÑA DO Unavailable Unavailable RIKA-MARYCARMEN, TOÑA DO Unavailable Unavailable RIKA-MARYCARMEN, TOÑA DO Unavailable Unavailable RIKA-MARYCARMEN, TOÑA DO Unavailable Unavailable RIKA-MARYCARMEN, TOÑA DO Unavailable Unavailable RIKA-MARYCARMEN, TOÑA DO Unavailable Unavailable RIKA-MARYCARMEN, TOÑA DO Unavailable Unavailable RIKA-MARYCARMEN, TOÑA DO Unavailable Unavailable RIKA-MARYCARMEN, TOÑA DO Unavailable Unavailable RIKA-MARYCARMEN, TOÑA DO Unavailable Unavailable RIKA-MARYCARMEN, TOÑA DO Unavailable Unavailable RIKA-MARYCARMEN, TOÑA DO Unavailable Unavailable RIKA-MARYCARMEN, TOÑA DO Unavailable Unavailable RIKA-MARYCARMEN, TOÑA DO Unavailable Unavailable RIKA-MARYCARMEN, TOÑA DO Unavailable Unavailable RIKA-MARYCARMEN, TOÑA DO Unavailable Unavailable RIKA-MARYCARMEN, TOÑA DO Unavailable Unavailable RIKA-MARYCARMEN, TOÑA DO Unavailable Unavailable RIKA-MARYCARMEN, TOÑA DO Unavailable Unavailable RIKA-MARYCARMEN, TOÑA DO Unavailable Unavailable RIKA-MARYCARMEN, TOÑA DO Unavailable Unavailable RIKA-MARYCARMEN, TOÑA DO Unavailable Unavailable RIKA-MARYCARMEN, TOÑA DO Unavailable Unavailable Trickey, J Meaghan PA Unavailable Unavailable Trickey, J Meaghan PA Unavailable Unavailable Trickey, J Meaghan PA Unavailable Unavailable Trickey, J Meaghan PA Unavailable Unavailable Trickey, J Meaghan PA Unavailable Unavailable Trickey, J Meaghan PA Unavailable Unavailable Trickey, J Meaghan PA Unavailable Unavailable Trickey, J Meaghan PA Unavailable Unavailable Trickey, J Meaghan PA Unavailable Unavailable Trickey, J Meaghan PA Unavailable Unavailable Trickey, J Meaghan PA Unavailable Unavailable Trickey, J Meaghan PA Unavailable Unavailable Trickey, J Meaghan PA Unavailable Unavailable Trickey, J Meaghan PA Unavailable Unavailable Trickey, J Meaghan PA Unavailable Unavailable Trickey, J Meaghan PA Unavailable Unavailable Trickey, J Meaghan PA Unavailable Unavailable Trickey, J Meaghan PA Unavailable Unavailable Trickey, J Meaghan PA Unavailable Unavailable Trickey, J Meaghan PA Unavailable Unavailable Trickey, J Meaghan PA Unavailable Unavailable Trickey, J Meaghan PA Unavailable Unavailable Trickey, J Meaghan PA Unavailable Unavailable Trickey, J Meaghan PA Unavailable Unavailable Trickey, J Meaghan PA Unavailable Unavailable Trickey, J Meaghan PA Unavailable Unavailable Trickey, J Meaghan PA Unavailable Unavailable Trickey, J Meaghan PA Unavailable Unavailable Trickey, J Meaghan PA Unavailable Unavailable Trickey, J Meaghan PA Unavailable Unavailable Trickey, J Meaghan PA Unavailable Unavailable Trickey, J Meaghan PA Unavailable Unavailable Trickey, J Meaghan PA Unavailable Unavailable Trickey, J Meaghan PA Unavailable Unavailable Trickey, J Meaghan PA Unavailable Unavailable Trickey, J Meaghan PA Unavailable Unavailable Trickey, J Meaghan PA Unavailable Unavailable Trickey, J Meaghan PA Unavailable Unavailable Trickey, J Meaghan PA Unavailable Unavailable Trickey, J Meaghan PA Unavailable Unavailable Trickey, J Meaghan PA Unavailable Unavailable Trickey, J Meaghan PA Unavailable Unavailable Trickey, J Meaghan PA Unavailable Unavailable Trickey, J Meaghan PA Unavailable Unavailable Trickey, J Meaghan PA Unavailable Unavailable Trickey, J Meaghan PA Unavailable Unavailable Trickey, J Meaghan PA Unavailable Unavailable Trickey, J Meaghan PA Unavailable Unavailable Trickey, J Meaghan PA Unavailable Unavailable DESJARLAIS, CHANNING GOVERNMENT AFFAIRS MANAGER Unavailable Unavailable DESJARLAIS, CHANNING GOVERNMENT AFFAIRS MANAGER Unavailable Unavailable DESJARLAIS, CHANNING GOVERNMENT AFFAIRS MANAGER Unavailable Unavailable DESJARLAIS, CHANNING GOVERNMENT AFFAIRS MANAGER Unavailable Unavailable DESJARLAIS, CHANNING GOVERNMENT AFFAIRS MANAGER Unavailable Unavailable DESJARLAIS, CHANNING GOVERNMENT AFFAIRS MANAGER Unavailable Unavailable DESJARLAIS, CHANNING GOVERNMENT AFFAIRS MANAGER Unavailable Unavailable DESJARLAIS, CHANNING GOVERNMENT AFFAIRS MANAGER Unavailable Unavailable DESJARLAIS, CHANNING GOVERNMENT AFFAIRS MANAGER Unavailable Unavailable DESJARLAIS, CHANNING GOVERNMENT AFFAIRS MANAGER Unavailable Unavailable Hickey, Renee Unavailable Hickey, Renee Unavailable Tameka HAND Unavailable Unavailable MARAH, DANDRE ELDER CARPENTER RAILCAR-C Unavailable Unavailable MARAH, DANDRE ELDER CARPENTER RAILCAR-C Unavailable Unavailable MARAH, DANDRE ELDER CARPENTER RAILCAR-C Unavailable Unavailable MARAH, DANDRE ELDER CARPENTER RAILCAR-C Unavailable Unavailable MARAH, DANDRE ELDER CARPENTER RAILCAR-C Unavailable Unavailable MARAH, DANDRE ELDER CARPENTER RAILCAR-C Unavailable Unavailable MARAH, DANDRE ELDER CARPENTER RAILCAR-C Unavailable Unavailable MARAH, DANDRE ELDER CARPENTER RAILCAR-C Unavailable Unavailable MARAH, DANDRE ELDER CARPENTER RAILCAR-C Unavailable Unavailable MARAH, DANDRE ELDER CARPENTER RAILCAR-C Unavailable Unavailable MARAH, DANDRE ELDER CARPENTER RAILCAR-C Unavailable Unavailable MARAH, DANDRE ELDER CARPENTER RAILCAR-C Unavailable Unavailable MARAH, DANDRE ELDER CARPENTER RAILCAR-C Unavailable Unavailable MARAH, DANDRE ELDER CARPENTER RAILCAR-C Unavailable Unavailable MARAH, DANDRE ELDER CARPENTER RAILCAR-C Unavailable Unavailable MARAH, DANDRE ELDER CARPENTER RAILCAR-C Unavailable Unavailable MARAHDANDRE Mohamud CARPENTER RAILCAR-C Unavailable Unavailable Firth, Scarlett CARPENTER RAILCAR Unavailable Unavailable Firth, Scarlett CARPENTER RAILCAR Unavailable Unavailable Firth, Scarlett CARPENTER RAILCAR Unavailable Unavailable Firth, Scarlett CARPENTER RAILCAR Unavailable Unavailable Firth, Scarlett CARPENTER RAILCAR Unavailable Unavailable Firth, Scarlett CARPENTER RAILCAR Unavailable Unavailable Firth, Scarlett CARPENTER RAILCAR Unavailable Unavailable Firth, Scarlett CARPENTER RAILCAR Unavailable Unavailable Firth, Scarlett CARPENTER RAILCAR Unavailable Unavailable Firth, Scarlett CARPENTER RAILCAR Unavailable Unavailable Firth, Scarlett CARPENTER RAILCAR Unavailable Unavailable Firth, Scarlett CARPENTER RAILCAR Unavailable Unavailable Firth, Scarlett CARPENTER RAILCAR Unavailable Unavailable Firth, Scarlett CARPENTER RAILCAR Unavailable Unavailable Firth, Scarlett CARPENTER RAILCAR Unavailable Unavailable Firth, Scarlett CARPENTER RAILCAR Unavailable Unavailable Firth, Scarlett CARPENTER RAILCAR Unavailable Unavailable Firth, Scarlett CARPENTER RAILCAR Unavailable Unavailable Firth, Scarlett CARPENTER RAILCAR Unavailable Unavailable Firth, Scarlett CARPENTER RAILCAR Unavailable Unavailable Firth, Scarlett CARPENTER RAILCAR Unavailable Unavailable Firth, Scarlett CARPENTER RAILCAR Unavailable Unavailable Firth, Scarlett CARPENTER RAILCAR Unavailable Unavailable Firth, Scarlett CARPENTER RAILCAR Unavailable Unavailable Firth, Scarlett CARPENTER RAILCAR Unavailable Unavailable Firth, Scarlett CARPENTER RAILCAR Unavailable Unavailable Firth, Scarlett CARPENTER RAILCAR Unavailable Unavailable Firth, Scarlett CARPENTER RAILCAR Unavailable Unavailable Firth, Scarlett CARPENTER RAILCAR Unavailable Unavailable Firth, Scarlett CARPENTER RAILCAR Unavailable Unavailable Firth, Scarlett CARPENTER RAILCAR Unavailable Unavailable Firth, Scarlett CARPENTER RAILCAR Unavailable Unavailable Firth, Scarlett CARPENTER RAILCAR Unavailable Unavailable Firth, Scarlett CARPENTER RAILCAR Unavailable Unavailable Firth, Scarlett CARPENTER RAILCAR Unavailable Unavailable Firth, Scarlett CARPENTER RAILCAR Unavailable Unavailable Christian Hand Unavailable Christian Hand Unavailable O'rony, A Shay PA Unavailable Unavailable O'rony, A Shay PA Unavailable Unavailable O'rony, A Shay PA Unavailable Unavailable O'rony, A Shay PA Unavailable Unavailable O'rony, A Shay PA Unavailable Unavailable O'rony, A Shay PA Unavailable Unavailable O'rony, A Shay PA Unavailable Unavailable O'rony, A Shay PA Unavailable Unavailable O'rony, A Shay PA Unavailable Unavailable O'rony, A Shay PA Unavailable Unavailable O'rony, A Shay PA Unavailable Unavailable O'rony, A Shay PA Unavailable Unavailable O'rony, A Shay PA Unavailable Unavailable O'rony, A Shay PA Unavailable Unavailable O'rony, A Shay PA Unavailable Unavailable O'rony, A Shay PA Unavailable Unavailable O'rony, A Shay PA Unavailable Unavailable O'rony, A Shay PA Unavailable Unavailable O'rony, A Shay PA Unavailable Unavailable O'rony, A Shay PA Unavailable Unavailable O'rony, A Shay PA Unavailable Unavailable O'rony, A Shay PA Unavailable Unavailable O'rony, A Shay PA Unavailable Unavailable O'rony, A Shay PA Unavailable Unavailable O'rony, A Shay PA Unavailable Unavailable O'rony, A Shay PA Unavailable Unavailable O'rony, A Shay PA Unavailable Unavailable O'rony, A Shay PA Unavailable Unavailable O'rony, A Shay PA Unavailable Unavailable O'rony, A Shay PA Unavailable Unavailable O'rony, A Shay PA Unavailable Unavailable O'rony, A Shay PA Unavailable Unavailable O'rony, A Shay PA Unavailable Unavailable KAMARN, LUPILLO ERIC PA-C Unavailable Unavailable KAMRAN, LUPILLO ERIC PA-C Unavailable Unavailable KAMRAN, LUPILLO ERIC PA-C Unavailable Unavailable KAMRAN, LUPILLO ERIC PA-C Unavailable Unavailable KAMRAN, LUPILLO ERIC PA-C Unavailable Unavailable KAMRAN, LUPILLO ERIC PA-C Unavailable Unavailable KAMRAN, LUPILLO ERIC PA-C Unavailable Unavailable KAMRAN, LUPILLO ERIC PA-C Unavailable Unavailable KAMRAN, LUPILLO ERIC PA-C Unavailable Unavailable KAMRAN, LUPILLO ERIC PA-C Unavailable Unavailable JF HARDY Unavailable Unavailable Re-disclosure Warning The records that you are about to access may contain information from federally-assisted alcohol or drug abuse programs. If such information is present, then the following federally mandated warning applies: This information has been disclosed to you from records protected by federal confidentiality rules (42 CFR part 2). The federal rules prohibit you from making any further disclosure of this information unless further disclosure is expressly permitted by the written consent of the person to whom it pertains or as otherwise permitted by 42 CFR part 2. A general authorization for the release of medical or other information is NOT sufficient for this purpose. The Federal rules restrict any use of the information to criminally investigate or prosecute any alcohol or drug abuse patient.The records that you are about to access may contain highly sensitive health information, the redisclosure of which is protected by Article 27-F of the [facility] Public Health law. If you continue you may have access to information: Regarding HIV / AIDS; Provided by facilities licensed or operated by the [facility] Office of Mental Health; or Provided by the [facility] Office for People With Developmental Disabilities. If such information is present, then the following [facility] mandated warning applies: This information has been disclosed to you from confidential records which are protected by state law. State law prohibits you from making any further disclosure of this information without the specific written consent of the person to whom it pertains, or as otherwise permitted by law. Any unauthorized further disclosure in violation of state law may result in a fine or prison sentence or both. A general authorization for the release of medical or other information is NOT sufficient authorization for further disc losure. Family History Family Member Name Family Member Gender Family Member Status Date o f Status Description Data Source(s) Unknown Unknown Problem [facility] ([facility] Unknown Male Problem [facility] ([facility] () Unknown Female Problem [facility] ([facility] ) Encounters Encounter Providers Location Date Indications Data Source(s ) Outpatient Attender: Renee Calvillo 10/05/2021 03:00:00 PM [facility] Outpatient Attender: Renee Calvillo 09/29/2021 01:55:00 PM [facility] Outpatient Attender: Renee Calvillo 09/20/2021 02:45:00 PM [facility] Outpatient Attender: CHANNING JIMENES NP 09/15/2021 11: 20:00 AM [facility] Office Visit Attender: Shay AVITIA [facility] 09/14/2021 01:30:00 PM EST [facility] ([facility]) Outpatient Attender: Erica Paez MDReferrer: TOÑA JENKINS DO [id number] 09/12/2021 12:17:34 AM EST [facility] Outpatient Attender: Renee Calvillo 09/11/2021 11:45:00 AM [facility] Outpatient Attender: ELDER GIPSON-Dilip Correa/Va/Josué/Christopher gupta 09/08/2021 02:00:00 PM EST [facility] ([facility]) Outpatient Attender: Renee Calvillo 09/04/2021 11:00:00 AM [facility] Outpatient Attender: Renee Calvillo 08/24/2021 10:00:00 AM [facility] Outpatient Attender: CHANNING JIMENES NP 08/23/2021 11: 00:00 AM [facility] Outpatient Attender: Shay AVITIA [facility] 08/10/2021 01:10:00 PM EDT [facility] ([facility]) Outpatient Attender: Renee Calvillo 08/09/2021 09:09:00 AM [facility] Outpatient Attender: Renee Calvillo 08/02/2021 03:45:00 PM [facility] Outpatient Attender: CHANNING JIMENES NP 07/27/2021 11: 20:00 AM [facility] Outpatient Attender: Meaghan AVITIA Main office - [facility] 07/26/2021 01:45:00 PM EDT MED[facility] ([facility] ) Outpatient Attender: Renee Calvillo 07/25/2021 03:45:00 PM [facility] Outpatient Attender: Renee Calvillo 07/12/2021 01:15:00 PM [facility] Outpatient Attender: Renee Calvillo 07/05/2021 01:30:00 PM [facility] Outpatient Attender: CHANNING JIMENES NP 06/28/2021 11: 20:00 AM [facility] Outpatient Attender: Renee Calvillo 06/21/2021 12:30:00 PM [facility] Outpatient Attender: CHANNING JIMENES NP 06/14/2021 01: 00:00 PM [facility] Outpatient Attender: Renee Calvillo 06/13/2021 12:23:00 PM [facility] Outpatient Attender: Renee Calvillo 06/07/2021 01:15:00 PM [facility] Outpatient Attender: Octavia GIPSON Main Office 05/26/2021 11:00:00 AM EDT [facility] ([facility]) Outpatient Attender: Renee Calvillo 05/23/2021 02:04:00 PM [facility] Outpatient Attender: CHANNING JIMENES NP 05/19/2021 11: 20:00 AM [facility] Outpatient Attender: ELDER GIPSON-C Madeline/Va/Josué/Christopher gupta 05/18/2021 02:15:00 PM EDT MED[facility] ([facility] Outpatient Attender: Renee Calvillo 05/16/2021 01:45:00 PM [facility] Outpatient Attender: Renee Calvillo 05/09/2021 12:30:00 PM [facility] Outpatient Attender: Renee Calvillo 05/02/2021 11:03:00 AM [facility] Outpatient Attender: Meaghan AVITIA Main office [facility] 04/28/2021 12:30:00 PM EDT MEDENT ([facility] ) Outpatient Attender: CHANNING JIMENES NP 04/25/2021 03: 20:00 PM [facility] Outpatient Attender: Renee Calvillo 04/24/2021 10:45:00 AM [facility] Outpatient Attender: Renee Calvillo 04/17/2021 02:00:00 PM [facility] Outpatient Attender: CHANNING JIMENES NP 04/07/2021 11: 20:00 AM [facility] Outpatient Attender: Christian Hand 04/04/2021 11:00:00 AM [facility] Outpatient Attender: Christian Hand 03/29/2021 11:00:00 AM [facility] Outpatient Attender: CHANNING JIMENES NP 03/15/2021 11: 00:00 AM [facility] Outpatient Attender: Christian Yazan 03/14/2021 11:00:00 AM [facility] Outpatient Attender: Shay AVITIA [facility] 03/13/2021 03:40:00 PM EDT [facility] ([facility]) Outpatient Attender: Octavia Jackson CARPENTER RAILCAR Main Office 03/13/2021 12:15:00 PM EDT [facility] Outpatient Attender: Christian Yazan 03/07/2021 10:57:00 AM [facility] Outpatient Attender: Christian Yazan 02/28/2021 11:00:00 AM [facility] Outpatient Attender: Erica Santosroma MDReferrer: TÑOA RIKA-MARYCARMEN DO [id number] 02/23/2021 06:55:09 PM EDT [facility] Outpatient Attender: Erica Paez MDReferrer: TOÑA RIKA-MARYCARMEN DO [id number] 02/22/2021 05:34:25 PM EDT [facility] Outpatient Attender: Erica Paez MDReferrer: TOÑARICK COLUNGAMARYCARMEN DO [id number] 02/22/2021 04:41:10 PM EDT [facility] Outpatient Attender: Erica Paez MDReferrer: TOÑA GUOSTEVENMARYCARMEN DO [id number] 02/22/2021 04:40:01 PM EDT [facility] Outpatient Attender: Erica Santosroma MDReferrer: TOÑA GUONOLorraineMARYCARMEN DO [id number] 02/22/2021 04:38:01 PM EDT [facility] Outpatient Attender: Erica Paez MDReferrer: TOÑA GUONOLorraineMARYCARMEN DO [id number] 02/22/2021 04:32:48 PM EDT [facility] Outpatient Attender: Erica Paez MDReferrer: TOÑA JENKINS DO [id number] 02/22/2021 04:32:47 PM EDT [facility] Outpatient Attender: Erica Paez MDReferrer: TOÑA JENKINS DO [id number] 02/22/2021 04:32:47 PM EDT [facility] Outpatient Attender: Erica Paez MDReferrer: TOÑA JENKINS DO [id number] 02/22/2021 04:31:36 PM EDT [facility] Outpatient Attender: Erica Paez MDReferrer: TOÑA JENKINS DO [id number] 02/22/2021 09:33:33 AM EDT [facility]ender: Christian Hand 02/21/2021 11:00:00 AM [facility] Outpatient Attender: Erica Paez MDReferrer: TOÑA JENKINS DO [id number] 02/16/2021 10:53:33 AM EDT [facility] Attender: Christian HandAttender: CHRISTIAN HAND 02/14/2021 11:00:00 AM [facility] Outpatient Attender: CHANNING JIMENES NP 02/08/2021 11: 00:00 AM [facility] Outpatient Attender: Christian HandAttender: CHRISTIAN HAND 02/07/2021 11:00:00 AM [facility] Outpatient Attender: ESTEBAN NAIDU MD Main Office 02/03/2021 11:00:00 AM EDT [facility] ([facility] Outpatient Attender: Christian HandAttender: CHRISTIAN HAND 01/31/2021 11:00:00 AM [facility] Office Visit Attender: Meaghan AVITIA Main office - [facility] 01/25/2021 01:00:00 PM EDT [facility] ([facility] Outpatient Attender: Christian BrownAttender: CHRISTIAN HAND 01/24/2021 11:00:00 AM [facility] Outpatient Attender: CHANNING JIMENES GOVERNMENT AFFAIRS MANAGER 01/18/2021 11: 20:00 AM [facility] Outpatient Attender: Christian HandAttender: CHRISTIAN HAND 01/17/2021 11:00:00 AM [facility] Outpatient Attender: Christian BrownAttender: CHRISTIAN HAND 01/10/2021 11:00:00 AM [facility] Outpatient Attender: Christian BrownAttender: CHRISTIAN HAND 01/03/2021 11:00:00 AM [facility] Outpatient Attender: CHANNING JIMENES NP 12/30/2020 11: 20:00 AM [facility] Outpatient Attender: Christian HandAttender: CHRISTIAN HAND 12/19/2020 10:59:00 AM [facility] Outpatient Attender: Christian HandAttender: CHRISTIAN HAND 12/12/2020 11:00:00 AM [facility] Outpatient Attender: CHANNING JIMENES GOVERNMENT AFFAIRS MANAGER 12/07/2020 11: 20:00 AM [facility] Outpatient Attender: Christian HandAttender: CHRISTIAN HAND 12/05/2020 11:00:00 AM [facility] Outpatient Attender: Christian HandAttender: CHRISTIAN HAND 11/29/2020 01:30:00 PM [facility] Outpatient Attender: Christian BrownAttender: CHRISTIAN HAND 11/28/2020 01:00:00 PM [facility] Outpatient Attender: Christian BrownAttender: CHRISTIAN HAND 11/21/2020 11:00:00 AM [facility] Outpatient Attender: CHANNING JIMENES NP 11/16/2020 11: 40:00 AM [facility] Outpatient Attender: Christian HandAttender: CHRISTIAN HAND 11/14/2020 10:58:00 AM [facility] Outpatient Attender: Christian HandAttender: CHRISTIAN HAND 11/09/2020 11:00:00 AM [facility] Outpatient Attender: Christian HandAttender: CHRISTIAN HAND 10/31/2020 11:00:00 AM [facility] Outpatient Attender: CHANNING JIMENES NP 10/26/2020 11: 40:00 AM [facility] Office Visit Attender: Meaghan AVITIA Main office - [facility] 10/25/2020 12:30:00 PM EST [facility] ([facility] ) Outpatient Attender: Christian HandAttender: CHRISTIAN HAND 10/24/2020 11:00:00 AM [facility] Outpatient Attender: Christian HandAttender: CHRISTIAN HAND 10/17/2020 10:59:00 AM [facility] Outpatient Attender: Christian HandAttender: CHRISTIAN HAND 10/11/2020 08:14:00 AM [facility] Outpatient Attender: CHANNING JIMENES NP 10/05/2020 01: 40:00 PM [facility] Outpatient Attender: Christian HandAttender: CHRISTIAN HAND 09/26/2020 11:00:00 AM [facility] Outpatient [facility] 09/21/2020 12:00:00 AM EST eCW1 ([facility]) Outpatient Attender: Christian HandAttender: CHRISTIAN HAND 09/19/2020 11:00:00 AM [facility] Outpatient Attender: CHANNING JIMENES NP 09/13/2020 10: 40:00 AM [facility] Outpatient Attender: Shay AVITIA [facility] 09/12/2020 03:00:00 PM EST [facility] ([facility]) Outpatient Attender: Christian HandAttender: CHRISTIAN HAND 09/12/2020 02:00:00 PM [facility] Outpatient Attender: Christian HandAttender: CHRISTIAN HAND 09/05/2020 10:57:00 AM [facility] Outpatient Attender: Christian HandAttender: CHRISTIAN HAND 08/29/2020 11:00:00 AM [facility] Outpatient Attender: CHANNING JIMENES NP 08/24/2020 01: 00:00 PM [facility] Outpatient Attender: CRHISTIAN HAND 08/22/2020 10:54:00 AM [facility] Outpatient Attender: CHRISTIAN HAND 08/15/2020 11:00:00 AM [facility] Outpatient Attender: CHANNING JIMENES GOVERNMENT AFFAIRS MANAGER 08/10/2020 11: 20:00 AM [facility] Outpatient Attender: Christian HandAttender: CHRISTIAN HAND 08/08/2020 11:00:00 AM [facility] Outpatient Attender: Christian BrownAttender: CHRISTIAN HAND 08/01/2020 11:00:00 AM [facility] Outpatient Attender: CHANNING JIMENES GOVERNMENT AFFAIRS MANAGER 07/27/2020 02: 00:00 PM [facility] Outpatient Attender: Christian BrownAttender: CHRISTIAN HAND 07/18/2020 01:00:00 PM [facility] Outpatient Attender: CHANNING JIMENES GOVERNMENT AFFAIRS MANAGER 07/13/2020 01: 20:00 PM [facility] Outpatient Attender: Christian HandAttender: CHRISTIAN HAND 07/11/2020 11:00:00 AM [facility] Outpatient Attender: Christian BrownAttender: CHRISTIAN HAND 07/06/2020 04:00:00 PM [facility] Outpatient Attender: Christian HandAttender: CHRISTIAN HAND 06/27/2020 01:00:00 PM [facility] Outpatient Attender: CHANNING JIMENES GOVERNMENT AFFAIRS MANAGER 06/22/2020 01: 00:00 PM [facility] Outpatient Attender: Christian HandAttender: CHRISTIAN HAND 2020 01:00:00 PM [facility] Outpatient Attender: Christian BrownAttender: CHRISTIAN HAND 06/13/2020 01:00:00 PM [facility] Outpatient Attender: Christian BrownAttender: CHRISTIAN HAND 06/06/2020 01:00:00 PM [facility] Outpatient Attender: Christian BrownAttender: CHRISTIAN HAND 05/30/2020 04:00:00 PM [facility] Outpatient Attender: CHANNING JIMENES GOVERNMENT AFFAIRS MANAGER 05/27/2020 11: 40:00 AM [facility] Outpatient Attender: Christian BrownAttender: CHRISTIAN HAND 05/23/2020 02:00:00 PM [facility] Outpatient Attender: Christian HandAttender: CHRISTIAN HAND 05/16/2020 02:00:00 PM [facility] Outpatient Attender: Christian BrownAttender: CHRISTIAN HAND 05/02/2020 02:00:00 PM [facility] Outpatient Attender: CHANNING JIMENES GOVERNMENT AFFAIRS MANAGER 04/27/2020 12: 59:00 PM [facility] Outpatient Attender: Caspar BrownAttender: CHRISTIAN HAND 04/20/2020 03:00:00 PM [facility] Outpatient Attender: Christian BrownAttender: CHRISTIAN HAND 04/13/2020 03:00:00 PM [facility] Outpatient Attender: Christian BrownAttender: CHRISTIAN HAND 04/06/2020 03:00:00 PM [facility] Outpatient Attender: CHANNING JIMENES GOVERNMENT AFFAIRS MANAGER 03/30/2020 01: 00:00 PM [facility] Outpatient Attender: Christian BrownAttender: CHRISTIAN HAND 03/23/2020 01:00:00 PM [facility] Outpatient Attender: Christian HandAttender: CHRISTIAN HAND 03/15/2020 11:00:00 AM [facility] Outpatient Attender: Christian BrownAttender: CHRISTIAN HAND 03/09/2020 01:00:00 PM [facility] Outpatient Attender: CHANNING JIMENES NP 03/02/2020 01: 40:00 PM [facility] Outpatient Attender: Christian YazanAttender: CHRISTIAN HAND 03/01/2020 10:57:00 AM [facility] Outpatient Attender: CHRISTIAN HAND 02/18/2020 04:00:00 PM [facility] Outpatient Attender: ERIC MERRILLCAttenlloyd: JF HARDY 02/10/2020 09:45:00 AM [facility] Immunizations Vaccine Date Status Description Data Source(s) COVID-19 VACCINE Pfizer 07/23/2021 12:00:00 AM EDT completed [facility] Vaccine Series Complete: YESThis Data wa s Submitted to [facility] Via [employer]. COVID-19 VACC, MRNA([employer])/PF 07/23/2021 12:00:00 AM EDT completed [facility] COVID-19 VACCINE Pfizer 01/01/2021 12:00:00 AM EST completed [facility] Vaccine Series Complete: YESThis Data wa s Submitted to [facility] Via [employer]. COVID-19 VACCINE Pfizer 12/11/2020 12:00:00 AM EST completed [facility] Vaccine Series Complete: NOThis Data was Submitted to [facility] Via [employer]. VARICELLA-ZOSTER VIRUS GLYCOPROTEIN E,REC/AS01B ADJUVA NT/PF 09/16/2020 12:00:00 AM EST completed [facility] Medications Medication Brand Name Start Date Product Form Dose Route Admi nistrative Instructions Pharmacy Instructions Status Indications Reaction Description Data Source(s) 500 mg 10/03/2021 12:00:00 AM EST tablet 21 TAKE ONE TABLET BY MOUTH EVERY 8 HOURS TAKE ONE TABLET BY MOUTH EVERY 8 HOURS SOLD: 10/03/2021 [facility] 300 mg 09/28/2021 12:00:00 AM EST capsule 60 TAKE ONE CAPSULE BY MOUTH TWICE A DAY TAKE ONE CAPSULE BY MOUTH TWICE A DAY SOLD: 10/03/2021 [facility] 20 mg 09/25/2021 12:00:00 AM EST tablet 30 TAKE ONE TABLET BY MOUTH EVERY DAY TAKE ONE TABLET BY MOUTH EVERY DAY SOLD: 09/27/2021 [facility] 75 mg 09/22/2021 12:00:00 AM EST capsule 30 TAKE ONE CAPSULE BY MOUTH EVERY DAY AT BEDTIME TAKE ONE CAPSULE BY MOUTH EVERY DAY AT BEDTIME SOLD: 021 [facility] 8 mg 09/16/2021 12:00:00 AM EST tablet 30 TAKE ONE TABLET BY MOUTH EVERY DAY AT BEDTIME NEEDED TAKE ONE TABLET BY MOUTH EVERY DAY AT BEDTIME NEEDE D SOLD: 09/20/2021 [facility] 0.5 ML pneumococcal capsular polysacchar josé type 1 vaccine 0.05 MG/ML / pneumococcal capsular polysaccharide type 10A vaccine 0.05 MG/ML / pneumococcal capsular polysaccharide type 11A vaccine 0.05 MG/ML / pneumococcal capsular polysaccharide type 12F vac Pneumovax 23 09/14/2021 12:00:00 AM EST active [facility] ([facility]) atorvastatin 20 MG Oral Tablet ATORVASTATIN CALCIUM 09/04/2021 1 2:00:00 AM EST tablet 45 TAKE ONE-HALF TABLET BY MOUTH EV PIERRE DAY TAKE ONE-HALF TABLET BY MOUTH EVERY DAY SOLD: 09/06/2021 [facility] 25 mcg 09/04/2021 12:00:00 AM EST tablet 90 TAKE ONE TABLET BY MOUTH EVERY DAY TAKE ONE TABLET BY MOUTH EVERY DAY SOLD: 09/06/2021 [facility] 2 mg 08/30/2021 12:00:00 AM EDT tablet 90 TAKE ONE TABLET BY MOUTH THREE TIMES A DAY NEEDED MAXIMUM DAILY DOSE = 3 TABLET TAKE ONE TABLET BY MOUTH THREE TIMES A DAY NEEDED MAXIMUM DAILY DOSE = 3 TABLET SOLD: 08/31/2021 [facility] 5 mg 08/15/2021 12:00:00 AM EDT tablet 30 TAKE 1 TABLET BY MOUTH EVERY EVENING NEEDED FOR ITCHING AND SNEEZING TAKE 1 TABLET BY MOUTH EVERY EVENING NEEDED FOR ITCHING AND SNEEZING SOLD: 09/20/2021 [facility] 5 mg 08/15/2021 12:00:00 AM EDT tablet 30 TAKE 1 TABLET BY MOUTH EVERY EVENING NEEDED FOR ITCHING AND SNEEZING TAKE 1 TABLET BY MOUTH EVERY EVENING NEEDED FOR ITCHING AND SNEEZING SOLD: 08/22/2021 [facility] 75 mg 08/01/2021 12:00:00 AM EDT capsule 30 TAKE ONE CAPSULE BY MOUTH AT BEDTIME TAKE ONE CAPSULE BY MOUTH AT BEDTIME SOLD: 08/01/2021 [facility] 75 mg 08/01/2021 12:00:00 AM EDT capsule 30 TAKE ONE CAPSULE BY MOUTH AT BEDTIME TAKE ONE CAPSULE BY MOUTH AT BEDTIME SOLD: 08/30/2021 [facility] 60 mcg (15 mcg x 4)/0.5 mL 07/23/2021 12:00:00 AM EDT syring e 0 INJECT DIRECTED INJECT DIRECTED SOLD: 07/23/2021 [facility] 2 mg 07/17/2021 12:00:00 AM EDT tablet 90 TAKE ONE TABLET BY MOUTH THREE TIMES A DAY NEEDED MAXIMUM DAILY DOSE = 3 TAKE ONE TABLET BY MOUTH THREE TIMES A DAY NEEDED MAXIMUM DAILY DOSE = 3 SOLD: 07/18/2021 [facility] 20 mg 06/05/2021 12:00:00 AM EDT tablet 90 TAKE ONE TABLET BY MOUTH EVERY DAY TAKE ONE TABLET BY MOUTH EVERY DAY SOLD: 06/07/2021 [facility] 20 mg 06/05/2021 12:00:00 AM EDT tablet 90 TAKE ONE TABLET BY MOUTH EVERY DAY TAKE ONE TABLET BY MOUTH EVERY DAY SOLD: 09/06/2021 [facility] 300 mg 05/29/2021 12:00:00 AM EDT capsule 60 TAKE ONE CAPSULE BY MOUTH TWICE A DAY TAKE ONE CAPSULE BY MOUTH TWICE A DAY SOLD: 08/10/2021 [facility] 300 mg 05/29/2021 12:00:00 AM EDT capsule 60 TAKE ONE CAPSULE BY MOUTH TWICE A DAY TAKE ONE CAPSULE BY MOUTH TWICE A DAY SOLD: 07/12/2021 [facility] 300 mg 05/29/2021 12:00:00 AM EDT capsule 60 TAKE ONE CAPSULE BY MOUTH TWICE A DAY TAKE ONE CAPSULE BY MOUTH TWICE A DAY SOLD: 06/07/2021 [facility] 300 mg 05/29/2021 12:00:00 AM EDT capsule 60 TAKE ONE CAPSULE BY MOUTH TWICE A DAY TAKE ONE CAPSULE BY MOUTH TWICE A DAY SOLD: 09/20/2021 [facility] 20 mg 05/28/2021 12:00:00 AM EDT tablet 30 TAKE ONE TABLET BY MOUTH EVERY DAY FOR 30 DAYS TAKE ONE TABLET BY MOUTH EVERY DAY FOR 30 DAYS SOLD: [facility] 20 mg 05/28/2021 12:00:00 AM EDT tablet 30 TAKE ONE TABLET BY MOUTH EVERY DAY FOR 30 DAYS TAKE ONE TABLET BY MOUTH EVERY DAY FOR 30 DAYS SOLD: [facility] 20 mg 05/28/2021 12:00:00 AM EDT tablet 30 TAKE ONE TABLET BY MOUTH EVERY DAY FOR 30 DAYS TAKE ONE TABLET BY MOUTH EVERY DAY FOR 30 DAYS SOLD: [facility] 20 mg 05/28/2021 12:00:00 AM EDT tablet 30 TAKE ONE TABLET BY MOUTH EVERY DAY FOR 30 DAYS TAKE ONE TABLET BY MOUTH EVERY DAY FOR 30 DAYS SOLD: [facility] 75 mg 05/19/2021 12:00:00 AM EDT capsule 30 TAKE ONE CAPSULE BY MOUTH AT BEDTIME TAKE ONE CAPSULE BY MOUTH AT BEDTIME SOLD: 05/21/2021 [facility] 25 mg 05/19/2021 12:00:00 AM EDT capsule 30 TAKE ONE CAPSULE BY MOUTH AT BEDTIME IN ADDITION TO THE 50MG TAKE ONE CAPSULE BY MOUTH AT BEDTIME IN ADDITION TO THE 50MG SOLD: 07/18/2021 [facility] 75 mg 05/19/2021 12:00:00 AM EDT capsule 30 TAKE ONE CAPSULE BY MOUTH AT BEDTIME TAKE ONE CAPSULE BY MOUTH AT BEDTIME SOLD: 06/22/2021 [facility] 25 mg 05/19/2021 12:00:00 AM EDT capsule 30 TAKE ONE CAPSULE BY MOUTH AT BEDTIME IN ADDITION TO THE 50MG TAKE ONE CAPSULE BY MOUTH AT BEDTIME IN ADDITION TO THE 50MG SOLD: 05/21/2021 [facility] 2 mg 05/19/2021 12:00:00 AM EDT tablet 90 TAKE ONE TABLET BY MOUTH THREE TIMES A DAY NEEDED MAXIMUM DAILY DOSE = 3 TABLETS TAKE ONE TABLET BY MOUTH THREE TIMES A DAY NEEDED MAXIMUM DAILY DOSE = 3 TABLETS SOLD: 05/21/2021 [facility] 5 mg 05/16/2021 12:00:00 AM EDT tablet extended release 24hr 90 TAKE ONE TABLET BY MOUTH EVERY DAY TAKE ONE TABLET BY MOUTH EVERY DAY SOLD: 08/10/2021 [facility] 5 mg 05/16/2021 12:00:00 AM EDT tablet extended release 24hr 90 TAKE ONE TABLET BY MOUTH EVERY DAY TAKE ONE TABLET BY MOUTH EVERY DAY SOLD: 05/16/2021 [facility] Meclizine Hydrochloride 25 MG Oral Tablet MECLIZINE HCL 04/28/2021 12:00:00 AM EDT tablet 30 TAKE ONE TABLET BY MOUTH THREE TIMES A DAY NEEDED FOR DIZZINESS TAKE ONE TABLET BY MOUTH THREE TIMES A DAY NEEDED F OR DIZZINESS SOLD: 04/28/2021 [facility] Meclizine Hydrochloride 25 MG Oral Tablet Meclizine HCL 04/28/2021 12:00:00 AM EDT ORAL active [facility] ([facility]) 50 mg 04/26/2021 12:00:00 AM EDT capsule 30 TAKE ONE CAPSULE BY MOUTH AT BEDTIME TAKE ONE CAPSULE BY MOUTH AT BEDTIME SOLD: 05/28/2021 [facility] 50 mg 04/26/2021 12:00:00 AM EDT capsule 30 TAKE ONE CAPSULE BY MOUTH AT BEDTIME TAKE ONE CAPSULE BY MOUTH AT BEDTIME SOLD: 04/28/2021 [facility] 25 mg 04/19/2021 12:00:00 AM EDT capsule 30 TAKE ONE CAPSULE BY MOUTH AT BEDTIME IN ADDITION TO 50MG TAKE ONE CAPSULE BY MOUTH AT BEDTIME IN ADDITION TO 50MG SOLD: 04/28/2021 [facility] 8 mg 04/18/2021 12:00:00 AM EDT tablet 30 TAKE ONE TABLET BY MOUTH AT BEDTIME NEEDED TAKE ONE TABLET BY MOUTH AT BEDTIME NEEDED SOLD: [facility] 8 mg 04/18/2021 12:00:00 AM EDT tablet 30 TAKE ONE TABLET BY MOUTH AT BEDTIME NEEDED TAKE ONE TABLET BY MOUTH AT BEDTIME NEEDED SOLD: [facility] 8 mg 04/18/2021 12:00:00 AM EDT tablet 30 TAKE ONE TABLET BY MOUTH AT BEDTIME NEEDED TAKE ONE TABLET BY MOUTH AT BEDTIME NEEDED SOLD: [facility] 8 mg 04/18/2021 12:00:00 AM EDT tablet 30 TAKE ONE TABLET BY MOUTH AT BEDTIME NEEDED TAKE ONE TABLET BY MOUTH AT BEDTIME NEEDED SOLD: [facility] 300 mg 04/08/2021 12:00:00 AM EDT capsule 60 TAKE ONE CAPSULE BY MOUTH TWICE A DAY TAKE ONE CAPSULE BY MOUTH TWICE A DAY SOLD: 05/12/2021 [facility] 5 mg 04/08/2021 12:00:00 AM EDT tablet 30 TAKE ONE TABLET BY MOUTH EVERY DAY TAKE ONE TABLET BY MOUTH EVERY DAY SOLD: 04/10/2021 [facility] 300 mg 04/08/2021 12:00:00 AM EDT capsule 60 TAKE ONE CAPSULE BY MOUTH TWICE A DAY TAKE ONE CAPSULE BY MOUTH TWICE A DAY SOLD: 04/10/2021 [facility] 5 mg 04/08/2021 12:00:00 AM EDT tablet 30 TAKE ONE TABLET BY MOUTH EVERY DAY TAKE ONE TABLET BY MOUTH EVERY DAY SOLD: 05/12/2021 [facility] 2 mg 04/08/2021 12:00:00 AM EDT tablet 90 TAKE ONE TABLET BY MOUTH THREE TIMES A DAY NEEDED MAXIMUM DAILY DOSE = 3 TAKE ONE TABLET BY MOUTH THREE TIMES A DAY NEEDED MAXIMUM DAILY DOSE = 3 SOLD: 04/10/2021 [facility] 5 mg 04/08/2021 12:00:00 AM EDT tablet 30 TAKE ONE TABLET BY MOUTH EVERY DAY TAKE ONE TABLET BY MOUTH EVERY DAY SOLD: 06/09/2021 [facility] NITROFURANTOIN, MACROCRYSTALS 25 MG / Ni trofurantoin, Monohydrate 75 MG Oral Capsule 100 mg NITROFURANTOIN MONOHYD/M-CRYST 03/18/2021 12:00:00 AM EDT ca psule 14 TAKE ONE CAPSULE BY MOUTH TWICE A DAY FOR 7 DAYS TAKE ONE CAPSULE BY MOUTH TWICE A DAY FOR 7 DAYS SOLD: 03/18/2021 [facility] 0.05 % 03/09/2021 12:00:00 AM EDT dropperette 180 INSTILL 1 DROP INTO BOTH EYES TWICE A DAY INSTILL 1 DROP INTO BOTH EYES TWICE A DAY SOLD: 03/09/2021 [facility] 0.05 % 03/09/2021 12:00:00 AM EDT dropperette 180 INSTILL 1 DROP INTO BOTH EYES TWICE A DAY INSTILL 1 DROP INTO BOTH EYES TWICE A DAY SOLD: 09/06/2021 [facility] 0.05 % 03/09/2021 12:00:00 AM EDT dropperette 180 INSTILL 1 DROP INTO BOTH EYES TWICE A DAY INSTILL 1 DROP INTO BOTH EYES TWICE A DAY SOLD: 06/07/2021 [facility] atorvastatin 20 MG Oral Tablet ATORVASTATIN CALCIUM 03/06/2021 1 2:00:00 AM EDT tablet 45 TAKE ONE-HALF TABLET BY MOUTH EV PIERRE DAY TAKE ONE-HALF TABLET BY MOUTH EVERY DAY SOLD: 03/09/2021 [facility] 25 mcg 03/06/2021 12:00:00 AM EDT tablet 90 TAKE ONE TABLET BY MOUTH EVERY DAY TAKE ONE TABLET BY MOUTH EVERY DAY SOLD: 06/07/2021 [facility] atorvastatin 20 MG Oral Tablet ATORVASTATIN CALCIUM 03/06/2021 1 2:00:00 AM EDT tablet 45 TAKE ONE-HALF TABLET BY MOUTH EV PIERRE DAY TAKE ONE-HALF TABLET BY MOUTH EVERY DAY SOLD: 06/07/2021 [facility] 25 mcg 03/06/2021 12:00:00 AM EDT tablet 90 TAKE ONE TABLET BY MOUTH EVERY DAY TAKE ONE TABLET BY MOUTH EVERY DAY SOLD: 03/09/2021 [facility] 20 mg 03/02/2021 12:00:00 AM EDT tablet 90 TAKE ONE TABLET BY MOUTH EVERY DAY TAKE ONE TABLET BY MOUTH EVERY DAY SOLD: 03/09/2021 [facility] 5 mg 02/04/2021 12:00:00 AM EDT tablet 30 TAKE 1 TABLET BY MOUTH EVERY EVENING NEEDED FOR ITCHING AND SNEEZING TAKE 1 TABLET BY MOUTH EVERY EVENING NEEDED FOR ITCHING AND SNEEZING SOLD: 05/12/2021 [facility] 300 mg 02/04/2021 12:00:00 AM EDT capsule 60 TAKE ONE CAPSULE BY MOUTH TWICE A DAY TAKE ONE CAPSULE BY MOUTH TWICE A DAY SOLD: 02/07/2021 [facility] 5 mg 02/04/2021 12:00:00 AM EDT tablet 30 TAKE 1 TABLET BY MOUTH EVERY EVENING NEEDED FOR ITCHING AND SNEEZING TAKE 1 TABLET BY MOUTH EVERY EVENING NEEDED FOR ITCHING AND SNEEZING SOLD: 02/07/2021 [facility] 5 mg 02/04/2021 12:00:00 AM EDT tablet 30 TAKE 1 TABLET BY MOUTH EVERY EVENING NEEDED FOR ITCHING AND SNEEZING TAKE 1 TABLET BY MOUTH EVERY EVENING NEEDED FOR ITCHING AND SNEEZING SOLD: 06/16/2021 [facility] 5 mg 02/04/2021 12:00:00 AM EDT tablet 30 TAKE 1 TABLET BY MOUTH EVERY EVENING NEEDED FOR ITCHING AND SNEEZING TAKE 1 TABLET BY MOUTH EVERY EVENING NEEDED FOR ITCHING AND SNEEZING SOLD: 03/09/2021 [facility] 5 mg 02/04/2021 12:00:00 AM EDT tablet 30 TAKE 1 TABLET BY MOUTH EVERY EVENING NEEDED FOR ITCHING AND SNEEZING TAKE 1 TABLET BY MOUTH EVERY EVENING NEEDED FOR ITCHING AND SNEEZING SOLD: 07/18/2021 [facility] 5 mg 02/04/2021 12:00:00 AM EDT tablet 30 TAKE 1 TABLET BY MOUTH EVERY EVENING NEEDED FOR ITCHING AND SNEEZING TAKE 1 TABLET BY MOUTH EVERY EVENING NEEDED FOR ITCHING AND SNEEZING SOLD: 04/10/2021 [facility] 300 mg 02/04/2021 12:00:00 AM EDT capsule 60 TAKE ONE CAPSULE BY MOUTH TWICE A DAY TAKE ONE CAPSULE BY MOUTH TWICE A DAY SOLD: 03/09/2021 [facility] 20 mg 02/03/2021 12:00:00 AM EDT tablet 30 TAKE ONE TABLET BY MOUTH EVERY DAY TAKE ONE TABLET BY MOUTH EVERY DAY SOLD: 04/10/2021 [facility] levocetirizine dihydrochloride 5 MG Oral Tablet Levocetirizi ne Dihydrochloride 02/03/2021 12:00:00 AM EDT active [facility] ([facility] 20 mg 02/03/2021 12:00:00 AM EDT tablet 30 TAKE ONE TABLET BY MOUTH EVERY DAY TAKE ONE TABLET BY MOUTH EVERY DAY SOLD: 05/12/2021 [facility] 20 mg 02/03/2021 12:00:00 AM EDT tablet 30 TAKE ONE TABLET BY MOUTH EVERY DAY TAKE ONE TABLET BY MOUTH EVERY DAY SOLD: 02/03/2021 [facility] 20 mg 02/03/2021 12:00:00 AM EDT tablet 30 TAKE ONE TABLET BY MOUTH EVERY DAY TAKE ONE TABLET BY MOUTH EVERY DAY SOLD: 03/09/2021 [facility] 8 mg 01/19/2021 12:00:00 AM EDT tablet 30 TAKE 1 TABLET BY MOUTH AT BEDTIME NEEDED ONCE A DAY TAKE 1 TABLET BY MOUTH AT BEDTIME NEEDED ONCE A DAY SOLD: 01/28/2021 [facility] 8 mg 01/19/2021 12:00:00 AM EDT tablet 30 TAKE 1 TABLET BY MOUTH AT BEDTIME NEEDED ONCE A DAY TAKE 1 TABLET BY MOUTH AT BEDTIME NEEDED ONCE A DAY SOLD: 05/21/2021 [facility] 8 mg 01/19/2021 12:00:00 AM EDT tablet 30 TAKE 1 TABLET BY MOUTH AT BEDTIME NEEDED ONCE A DAY TAKE 1 TABLET BY MOUTH AT BEDTIME NEEDED ONCE A DAY SOLD: 02/28/2021 [facility] 8 mg 01/19/2021 12:00:00 AM EDT tablet 30 TAKE 1 TABLET BY MOUTH AT BEDTIME NEEDED ONCE A DAY TAKE 1 TABLET BY MOUTH AT BEDTIME NEEDED ONCE A DAY SOLD: 04/02/2021 [facility] 5 mg 01/13/2021 12:00:00 AM EDT tablet 30 TAKE ONE TABLET BY MOUTH EVERY DAY TAKE ONE TABLET BY MOUTH EVERY DAY SOLD: 01/14/2021 [facility] 5 mg 01/13/2021 12:00:00 AM EDT tablet 30 TAKE ONE TABLET BY MOUTH EVERY DAY TAKE ONE TABLET BY MOUTH EVERY DAY SOLD: 02/12/2021 [facility] 5 mg 01/13/2021 12:00:00 AM EDT tablet 30 TAKE ONE TABLET BY MOUTH EVERY DAY TAKE ONE TABLET BY MOUTH EVERY DAY SOLD: 03/13/2021 [facility] 2 mg 01/07/2021 12:00:00 AM EST tablet 90 TAKE ONE TABLET BY MOUTH THREE TIMES A DAY NEEDED MAXIMUM DAILY DOSE = 3 TAKE ONE TABLET BY MOUTH THREE TIMES A DAY NEEDED MAXIMUM DAILY DOSE = 3 SOLD: 01/07/2021 [facility] 25 mg 12/20/2020 12:00:00 AM EST capsule 30 TAKE ONE CAPSULE BY MOUTH AT BEDTIME TAKE ONE CAPSULE BY MOUTH AT BEDTIME SOLD: 04/02/2021 [facility] 25 mg 12/20/2020 12:00:00 AM EST capsule 30 TAKE ONE CAPSULE BY MOUTH AT BEDTIME TAKE ONE CAPSULE BY MOUTH AT BEDTIME SOLD: 12/21/2020 [facility] 25 mg 12/20/2020 12:00:00 AM EST capsule 30 TAKE ONE CAPSULE BY MOUTH AT BEDTIME TAKE ONE CAPSULE BY MOUTH AT BEDTIME SOLD: 01/28/2021 [facility] 25 mg 12/20/2020 12:00:00 AM EST capsule 30 TAKE ONE CAPSULE BY MOUTH AT BEDTIME TAKE ONE CAPSULE BY MOUTH AT BEDTIME SOLD: 02/28/2021 [facility] 160-4.5 mcg/actuation 12/17/2020 12:00:00 AM EST HFA aerosol inhaler 10 INHALE TWO PUFFS BY MOUTH TWICE A DAY INHALE TWO PUFFS BY MOUTH TWICE A DAY SOLD: 12/17/2020 [facility] 50 mg 12/16/2020 12:00:00 AM EST capsule 30 TAKE ONE CAPSULE BY MOUTH AT BEDTIME TAKE ONE CAPSULE BY MOUTH AT BEDTIME SOLD: 01/28/2021 [facility] 50 mg 12/16/2020 12:00:00 AM EST capsule 30 TAKE ONE CAPSULE BY MOUTH AT BEDTIME TAKE ONE CAPSULE BY MOUTH AT BEDTIME SOLD: 02/28/2021 [facility] 50 mg 12/16/2020 12:00:00 AM EST capsule 30 TAKE ONE CAPSULE BY MOUTH AT BEDTIME TAKE ONE CAPSULE BY MOUTH AT BEDTIME SOLD: 04/02/2021 [facility] 50 mg 12/16/2020 12:00:00 AM EST capsule 30 TAKE ONE CAPSULE BY MOUTH AT BEDTIME TAKE ONE CAPSULE BY MOUTH AT BEDTIME SOLD: 12/17/2020 [facility] Polyethylene Glycol 1500 12/15/2020 12:00:00 AM EST ORAL active [facility] ([facility]) 2 mg 12/08/2020 12:00:00 AM EST tablet 90 TAKE ONE TABLET BY MOUTH THREE TIMES A DAY NEEDED MAXIMUM DAILY DOSE = 3 TABLETS TAKE ONE TABLET BY MOUTH THREE TIMES A DAY NEEDED MAXIMUM DAILY DOSE = 3 TABLETS SOLD: 12/09/2020 [facility] 60 ACTUAT Budesonide 0.16 MG/ACTUAT / fo rmoterol fumarate 0.0045 MG/ACTUAT Metered Dose Inhaler [Symbicort] Symbicort 11/29/2020 12:00:00 AM EST RESPIRATORY active [facility] ( [facility]) 160-4.5 mcg/actuation 11/26/2020 12:00:00 AM EST HFA aerosol inhaler 10 INHALE TWO PUFFS BY MOUTH TWICE A DAY INHALE TWO PUFFS BY MOUTH TWICE A DAY SOLD: 12/01/2020 [facility] 160-4.5 mcg/actuation 11/26/2020 12:00:00 AM EST HFA aerosol inhaler 10 INHALE TWO PUFFS BY MOUTH TWICE A DAY INHALE TWO PUFFS BY MOUTH TWICE A DAY SOLD: 04/02/2021 [facility] 160-4.5 mcg/actuation 11/26/2020 12:00:00 AM EST HFA aerosol inhaler 10 INHALE TWO PUFFS BY MOUTH TWICE A DAY INHALE TWO PUFFS BY MOUTH TWICE A DAY SOLD: 01/28/2021 [facility] 160-4.5 mcg/actuation 11/26/2020 12:00:00 AM EST HFA aerosol inhaler 10 INHALE TWO PUFFS BY MOUTH TWICE A DAY INHALE TWO PUFFS BY MOUTH TWICE A DAY SOLD: 02/28/2021 [facility] 5 mg 11/16/2020 12:00:00 AM EST tablet 30 TAKE ONE TABLET BY MOUTH EVERY DAY TAKE ONE TABLET BY MOUTH EVERY DAY SOLD: 12/15/2020 [facility] 5 mg 11/16/2020 12:00:00 AM EST tablet 30 TAKE ONE TABLET BY MOUTH EVERY DAY TAKE ONE TABLET BY MOUTH EVERY DAY SOLD: 11/17/2020 [facility] 300 mg 11/14/2020 12:00:00 AM EST capsule 60 TAKE ONE CAPSULE BY MOUTH TWICE A DAY TAKE ONE CAPSULE BY MOUTH TWICE A DAY SOLD: 01/06/2021 [facility] 300 mg 11/14/2020 12:00:00 AM EST capsule 60 TAKE ONE CAPSULE BY MOUTH TWICE A DAY TAKE ONE CAPSULE BY MOUTH TWICE A DAY SOLD: 11/16/2020 [facility] 20 mg 11/13/2020 12:00:00 AM EST tablet 30 TAKE ONE TABLET BY MOUTH EVERY DAY TAKE ONE TABLET BY MOUTH EVERY DAY SOLD: 11/16/2020 [facility] 20 mg 11/13/2020 12:00:00 AM EST tablet 30 TAKE ONE TABLET BY MOUTH EVERY DAY TAKE ONE TABLET BY MOUTH EVERY DAY SOLD: 01/06/2021 [facility] 875-125 mg 11/12/2020 12:00:00 AM EST tablet 20 TAKE ONE TABLET BY MOUTH TWICE A DAY FOR 10 DAYS TAKE ONE TABLET BY MOUTH TWICE A DAY FOR 10 DAYS SOLD: 11/12/2020 [facility] 5 mg 11/08/2020 12:00:00 AM EST tablet extended release 24hr 30 TAKE ONE TABLET BY MOUTH EVERY DAY TAKE ONE TABLET BY MOUTH EVERY DAY SOLD: 01/07/2021 [facility] 5 mg 11/08/2020 12:00:00 AM EST tablet extended release 24hr 30 TAKE ONE TABLET BY MOUTH EVERY DAY TAKE ONE TABLET BY MOUTH EVERY DAY SOLD: 04/10/2021 [facility] 5 mg 11/08/2020 12:00:00 AM EST tablet extended release 24hr 30 TAKE ONE TABLET BY MOUTH EVERY DAY TAKE ONE TABLET BY MOUTH EVERY DAY SOLD: 12/09/2020 [facility] 5 mg 11/08/2020 12:00:00 AM EST tablet extended release 24hr 30 TAKE ONE TABLET BY MOUTH EVERY DAY TAKE ONE TABLET BY MOUTH EVERY DAY SOLD: 03/09/2021 [facility] 5 mg 11/08/2020 12:00:00 AM EST tablet extended release 24hr 30 TAKE ONE TABLET BY MOUTH EVERY DAY TAKE ONE TABLET BY MOUTH EVERY DAY SOLD: 11/09/2020 [facility] 5 mg 11/08/2020 12:00:00 AM EST tablet extended release 24hr 30 TAKE ONE TABLET BY MOUTH EVERY DAY TAKE ONE TABLET BY MOUTH EVERY DAY SOLD: 02/07/2021 [facility] 25 mg 10/29/2020 12:00:00 AM EST capsule 30 TAKE ONE CAPSULE BY MOUTH AT BEDTIME IN ADDITION TO 50MG DOSE TAKE ONE CAPSULE BY MOUTH AT BEDTIME IN ADDITION TO 50MG DOSE SOLD: 10/29/2020 [facility] 25 mg 10/29/2020 12:00:00 AM EST capsule 30 TAKE ONE CAPSULE BY MOUTH AT BEDTIME IN ADDITION TO 50MG DOSE TAKE ONE CAPSULE BY MOUTH AT BEDTIME IN ADDITION TO 50MG DOSE SOLD: 12/01/2020 [facility] 8 mg 10/27/2020 12:00:00 AM EST tablet 30 TAKE ONE TABLET BY MOUTH AT BEDTIME NEEDED TAKE ONE TABLET BY MOUTH AT BEDTIME NEEDED SOLD: [facility] 50 mg 10/27/2020 12:00:00 AM EST capsule 30 TAKE ONE CAPSULE BY MOUTH AT BEDTIME TAKE ONE CAPSULE BY MOUTH AT BEDTIME SOLD: 12/01/2020 [facility] 8 mg 10/27/2020 12:00:00 AM EST tablet 30 TAKE ONE TABLET BY MOUTH AT BEDTIME NEEDED TAKE ONE TABLET BY MOUTH AT BEDTIME NEEDED SOLD: [facility] 50 mg 10/27/2020 12:00:00 AM EST capsule 30 TAKE ONE CAPSULE BY MOUTH AT BEDTIME TAKE ONE CAPSULE BY MOUTH AT BEDTIME SOLD: 10/29/2020 [facility] 8 mg 10/27/2020 12:00:00 AM EST tablet 30 TAKE ONE TABLET BY MOUTH AT BEDTIME NEEDED TAKE ONE TABLET BY MOUTH AT BEDTIME NEEDED SOLD: [facility] 300 mg 10/25/2020 12:00:00 AM EST capsule 60 TAKE ONE CAPSULE BY MOUTH TWICE A DAY TAKE ONE CAPSULE BY MOUTH TWICE A DAY SOLD: 10/29/2020 [facility] 300 mg 10/25/2020 12:00:00 AM EST capsule 60 TAKE ONE CAPSULE BY MOUTH TWICE A DAY TAKE ONE CAPSULE BY MOUTH TWICE A DAY SOLD: 12/07/2020 [facility] 2 mg 10/06/2020 12:00:00 AM EST tablet 90 TAKE ONE TABLET BY MOUTH THREE TIMES A DAY NEEDED MAXIMUM DAILY DOSE = 3 TAKE ONE TABLET BY MOUTH THREE TIMES A DAY NEEDED MAXIMUM DAILY DOSE = 3 SOLD: 10/07/2020 [facility] 25 mg 10/06/2020 12:00:00 AM EST capsule 30 TAKE ONE CAPSULE BY MOUTH AT BEDTIME TAKE ONE CAPSULE BY MOUTH AT BEDTIME SOLD: 10/07/2020 [facility] Shingrix Shingrix 09/12/2020 12:00:00 AM EST activ e [facility] ([facility]) cetirizine hydrochloride 10 MG Oral Tablet Cetirizine HCL 09/12/2020 12:00:00 AM EST ORAL active [facility] ([facility]) 25 mcg 09/08/2020 12:00:00 AM EST tablet 90 TAKE ONE TABLET BY MOUTH EVERY DAY TAKE ONE TABLET BY MOUTH EVERY DAY SOLD: 09/09/2020 [facility] atorvastatin 20 MG Oral Tablet ATORVASTATIN CALCIUM 09/08/2020 1 2:00:00 AM EST tablet 45 TAKE ONE-HALF TABLET BY MOUTH EV PIERRE DAY TAKE ONE-HALF TABLET BY MOUTH EVERY DAY SOLD: 12/07/2020 [facility] atorvastatin 20 MG Oral Tablet ATORVASTATIN CALCIUM 09/08/2020 1 2:00:00 AM EST tablet 45 TAKE ONE-HALF TABLET BY MOUTH EV PIERRE DAY TAKE ONE-HALF TABLET BY MOUTH EVERY DAY SOLD: 09/09/2020 [facility] 20 mg 09/08/2020 12:00:00 AM EST tablet 90 TAKE ONE TABLET BY MOUTH EVERY DAY TAKE ONE TABLET BY MOUTH EVERY DAY SOLD: 09/09/2020 [facility] 25 mcg 09/08/2020 12:00:00 AM EST tablet 90 TAKE ONE TABLET BY MOUTH EVERY DAY TAKE ONE TABLET BY MOUTH EVERY DAY SOLD: 12/07/2020 [facility] 20 mg 09/08/2020 12:00:00 AM EST tablet 90 TAKE ONE TABLET BY MOUTH EVERY DAY TAKE ONE TABLET BY MOUTH EVERY DAY SOLD: 12/07/2020 [facility] atorvastatin 20 MG Oral Tablet Atorvastatin Calcium 09/07/2020 1 2:00:00 AM EST active [facility] ( [facility]) 2 mg 08/27/2020 12:00:00 AM EDT tablet 90 TAKE ONE TABLET BY MOUTH THREE TIMES A DAY NEEDED MAXIMUM DAILY DOSE = 3 TABLETS TAKE ONE TABLET BY MOUTH THREE TIMES A DAY NEEDED MAXIMUM DAILY DOSE = 3 TABLETS SOLD: 08/29/2020 [facility] 300 mg 08/26/2020 12:00:00 AM EDT capsule 60 TAKE ONE CAPSULE BY MOUTH TWICE A DAY TAKE ONE CAPSULE BY MOUTH TWICE A DAY SOLD: 08/29/2020 [facility] 300 mg 08/26/2020 12:00:00 AM EDT capsule 60 TAKE ONE CAPSULE BY MOUTH TWICE A DAY TAKE ONE CAPSULE BY MOUTH TWICE A DAY SOLD: 09/27/2020 [facility] 50 mg 08/26/2020 12:00:00 AM EDT capsule 30 TAKE ONE CAPSULE BY MOUTH AT BEDTIME TAKE ONE CAPSULE BY MOUTH AT BEDTIME SOLD: 08/29/2020 [facility] 20 mg 08/25/2020 12:00:00 AM EDT tablet 30 TAKE ONE TABLET BY MOUTH EVERY DAY TAKE ONE TABLET BY MOUTH EVERY DAY SOLD: 12/07/2020 [facility] 20 mg 08/25/2020 12:00:00 AM EDT tablet 30 TAKE ONE TABLET BY MOUTH EVERY DAY TAKE ONE TABLET BY MOUTH EVERY DAY SOLD: 10/29/2020 [facility] 20 mg 08/25/2020 12:00:00 AM EDT tablet 30 TAKE ONE TABLET BY MOUTH EVERY DAY TAKE ONE TABLET BY MOUTH EVERY DAY SOLD: 09/27/2020 [facility] 20 mg 08/25/2020 12:00:00 AM EDT tablet 30 TAKE ONE TABLET BY MOUTH EVERY DAY TAKE ONE TABLET BY MOUTH EVERY DAY SOLD: 08/26/2020 [facility] 90 mcg/actuation 08/18/2020 12:00:00 AM EDT HFA aerosol inha ler 8 INHALE 2 PUFFS EVERY 4 TO 6 HOURS NEEDED INHALE 2 PUFFS EVERY 4 TO 6 HOURS NEEDED SOLD: 08/24/2020 [facility] 90 mcg/actuation 08/18/2020 12:00:00 AM EDT HFA aerosol inha ler 8 INHALE 2 PUFFS EVERY 4 TO 6 HOURS NEEDED INHALE 2 PUFFS EVERY 4 TO 6 HOURS NEEDED SOLD: 09/27/2020 [facility] 90 mcg/actuation 08/18/2020 12:00:00 AM EDT HFA aerosol inha ler 8 INHALE 2 PUFFS EVERY 4 TO 6 HOURS NEEDED INHALE 2 PUFFS EVERY 4 TO 6 HOURS NEEDED SOLD: 09/08/2020 [facility] 8 mg 07/08/2020 12:00:00 AM EDT tablet 30 TAKE ONE TABLET BY MOUTH AT BEDTIME NEEDED TAKE ONE TABLET BY MOUTH AT BEDTIME NEEDED SOLD: [facility] 8 mg 07/08/2020 12:00:00 AM EDT tablet 30 TAKE ONE TABLET BY MOUTH AT BEDTIME NEEDED TAKE ONE TABLET BY MOUTH AT BEDTIME NEEDED SOLD: [facility] 8 mg 07/08/2020 12:00:00 AM EDT tablet 30 TAKE ONE TABLET BY MOUTH AT BEDTIME NEEDED TAKE ONE TABLET BY MOUTH AT BEDTIME NEEDED SOLD: [facility] 160-4.5 mcg/actuation 06/06/2020 12:00:00 AM EDT HFA aerosol inhaler 10 INHALE TWO PUFFS BY MOUTH TWICE A DAY INHALE TWO PUFFS BY MOUTH TWICE A DAY SOLD: 09/27/2020 [facility] 160-4.5 mcg/actuation 06/06/2020 12:00:00 AM EDT HFA aerosol inhaler 10 INHALE TWO PUFFS BY MOUTH TWICE A DAY INHALE TWO PUFFS BY MOUTH TWICE A DAY SOLD: 08/24/2020 [facility] 160-4.5 mcg/actuation 06/06/2020 12:00:00 AM EDT HFA aerosol inhaler 10 INHALE TWO PUFFS BY MOUTH TWICE A DAY INHALE TWO PUFFS BY MOUTH TWICE A DAY SOLD: 10/29/2020 [facility] 50 mg 06/03/2020 12:00:00 AM EDT capsule 30 TAKE ONE CAPSULE BY MOUTH AT BEDTIME TAKE ONE CAPSULE BY MOUTH AT BEDTIME SOLD: 09/27/2020 [facility] 50 mg 06/03/2020 12:00:00 AM EDT capsule 30 TAKE ONE CAPSULE BY MOUTH AT BEDTIME TAKE ONE CAPSULE BY MOUTH AT BEDTIME SOLD: 08/05/2020 [facility] 300 mg 04/28/2020 12:00:00 AM EDT capsule 60 TAKE ONE CAPSULE BY MOUTH TWICE A DAY TAKE ONE CAPSULE BY MOUTH TWICE A DAY SOLD: 08/05/2020 [facility] 5 mg 10/28/2019 12:00:00 AM EST tablet extended release 24hr 30 TAKE ONE TABLET BY MOUTH EVERY DAY TAKE ONE TABLET BY MOUTH EVERY DAY SOLD: 10/02/2020 [facility] 5 mg 10/28/2019 12:00:00 AM EST tablet extended release 24hr 30 TAKE ONE TABLET BY MOUTH EVERY DAY TAKE ONE TABLET BY MOUTH EVERY DAY SOLD: 09/04/2020 [facility] 5 mg 10/28/2019 12:00:00 AM EST tablet extended release 24hr 30 TAKE ONE TABLET BY MOUTH EVERY DAY TAKE ONE TABLET BY MOUTH EVERY DAY SOLD: 08/05/2020 [facility] 50 mcg/actuation 10/17/2019 12:00:00 AM EST spray,suspension 16 SPRAY 2 SPRAYS IN EACH NOSTRIL DAILY IN THE EVENING SPRAY 2 SPRAYS IN EACH NOSTRIL DAILY IN THE EVENING SOLD: 09/04/2020 [facility] 50 mcg/actuation 10/17/2019 12:00:00 AM EST spray,suspension 16 SPRAY 2 SPRAYS IN EACH NOSTRIL DAILY IN THE EVENING SPRAY 2 SPRAYS IN EACH NOSTRIL DAILY IN THE EVENING SOLD: 08/05/2020 [facility] 50 mcg/actuation 10/17/2019 12:00:00 AM EST spray,suspension 16 SPRAY 2 SPRAYS IN EACH NOSTRIL DAILY IN THE EVENING SPRAY 2 SPRAYS IN EACH NOSTRIL DAILY IN THE EVENING SOLD: 10/02/2020 [facility] Insurance Providers Payer name Policy type / Coverage type Policy ID Covered constitution party ID Covered constitution party's relationship to harmon Policy Harmon Plan Information PROCLAIM [facility] [id number] SP [id number] Ghi FHP-(DO Not Use) Medigap Part B [id number] Self 0 [id number] Ghi FHP-(DO Not Use) Medigap Part B [id number] Self 0 [id number] Ghi FHP-(DO Not Use) Medigap Part B [id number] Self 0 [id number] Ghi FHP-(DO Not Use) Medigap Part B [id number] Self 0 [id number] MEDICARE [id number] Paulina [id number] [place]IC[place] [id number] S [id number] MEDICARE A [id number] Self [id number] M99 UHC UNITED MEDICARE COMPLETE [id number] Self [id number] MEDICARE [id number] xxxxxxxxxxx [id number] MEDICARE [id number] SP [id number] MEDICARE [id number] SP [id number] [place] MED[place] DIVISION [id number] S [id number] MEDICARE BLUE PPO 306 [id number] SP [id number] Blue Shield MCR Advantage Medigap Part B [id number] Self V [id number] Blue Shield MCR Advantage Medigap Part B [id number] Self V [id number] Blue Shield MCR Advantage Medigap Part B [id number] [id number] Self V [id number] Blue Shield MCR Advantage Medigap Part B [id number] 2..[id number] Self V [id number] Unitedhealthcare Medicare Commercial [id number] 2.1.3[id number] Self [id number] MEDICARE COMPLETE [id number] SP [id number] [facility] MEDICARE [id number] Paulina [id number] [facility] Medicare Solutions F [id number] SELF [id number] AARP U [id number] Self [id number] Aarp Medigap Part B [id number] 0555.0 Self [id number] Aarp Medigap Part B [id number] 2..[id number] 0555.0 Self [id number] Aarp Secondary [id number] Medicare Primary [id number] M99 AARP HEALTH CARE OPTIONS [id number] SP [id number] [facility] [id number] xxxxxxxxxxx [id number] [facility] [id number] Paulina [id number] Medicare [place] Medicare Primary [id number] Self [id number] [facility] [facility] Options [facility] Part B [id number] [id number] Self 3 [id number] Medicare Dme Supplies [facility] Part B [id number] 2.0.1.255664.3.227.99.991.98533.0 Self 0 [id number] Medicare [place] Medicare Primary [id number] 2.0.1.511384.3.227.99.991.59788.0 Self 0 [id number] [facility] Part B [id number] 2.0.1.38[id number] Self 3 [id number] Medicare Dme Supplies [facility] Part B [id number] 2..1.310220.3.227.99.991.32561.0 Self 0 [id number] Medicare [place] Medicare Primary [id number] 2.0.1.20[id number] Self 0 [id number] Aarp Commercial [id number] 2..1.508245.3.227.99.177.50741. 0 Self [id number] Medicare - [place] Medicare Primary [id number] 2.0.1.402706.3.227.99.177.59361.0 Self 0 [id number] Medicare Blue Ppo Commercial [id number] 2..1.113 883.3.227.99.177.25852.0 Self [id number] Medicare - [place] Medicare Primary [id number] 2.0.1.464193.3.227.99.177.74718.0 Self 0 [id number] [facility] BEZ Systems Plus Commercial [id number] 2.0.1.691161.3.227.99.177.84022.0 Self O [id number] [facility] Part B [id number] 2.0.1.775574.3.227.99.991.14584.0 Self 3 [id number] Medicare Dme Supplies [facility] Part B [id number] 2.0.1.108619.3.227.99.991.75119.0 Self 0 [id number] Medicare [place] Medicare Primary [id number] 2.0.1.425063.3.227.99.991.72146.0 Self 0 [id number] [facility] Part B [id number] 2.0.1.221665.3.227.99.991.47513.0 Self 3 [id number] Medicare Dme Supplies [facility] Part B [id number] 2.0.1.468924.3.227.99.991.43379.0 Self 0 [id number] Medicare [place] Medicare Primary [id number] 2.0.1.044245.3.227.99.991.06154.0 Self 0 [id number] [facility] Medicare Commercial [id number] 2.0.1.864185.3.227.99.8646.69171.[id number] [facility] F [id number] SELF [id number] Medicare C [id number] SELF [id number] A MEDICARE COMPLETE [id number] SP [id number] [facility] Medicare Commercial [id number] 2.0.1.456[id number] Self [id number] [facility] Medicare Commercial ..[id number] [id number] Self MEDICARE BLUE PPO 306 [id number] SP [id number] MEDICARE COMPLETE [id number] SP [id number] Sliding Fee Scale P [id number] S [id number] [facility] B [id number] S [id number] [facility] EM[employer]OYEE [id number] SP [id number] VALUE OPTIONS (FHP) [id number] SP [id number] MEDICARE [id number] SP [id number] M99 MEDICARE BLUE PPO 306 [id number] SP [id number] AARP HEALTH CARE OPTIONS [id number] SP [id number] AARP HEALTH CARE OPTIONS [id number] S [id number] [facility] MEDICARE DIVISION [id number] S [id number] MEDICARE [place] [id number] S [id number] AARP HEALTH CARE OPTIONS [id number] S [id number] [place] MEDICARE DIVISION [id number] S [id number] MEDICARE - [place] [id number] S [id number] SELF PAY ONLY [facility] PLUS [id number] SP [id number] MEDICARE [id number] S [id number] M99 AARP O [id number] S [id number] Medicare Blue Ppo Commercial [id number] .[id number] Self [id number] Ghi Medigap Part B [id number] ..[id number] 0555.0 Self [id number] Medicare [place]/[facility] Medicare Primary [id number] ..1.523947.3.227.99.8646.48833.0 Self [id number] Medicare Blue Ppo Commercial [id number] ..[id number] Self [id number] Ghi Medigap Part B [id number] 0555.0 Self [id number] Medicare [place] Medicare Primary [id number] ..1.134024.3.227.99.8646.61840.0 Self [id number] [facility] .0.1.647159.3.441 [id number] Commercial Insurance Co. 2.0.1.850168.3.441 BCBS .840.1.337028.3.441 [id number] Blue Cross/Bl ue Shield .0.1.309547.3.441 [facility] HEALTH CARE OPTIONS .0.1.156742.3.441 [id number] Commercial Insurance Co. .0.1.936157.3.441 Medicare [id number] [id number] Medicare Part B [id number] [facility] FAMILY HLTH PLUS [id number] SP [id number] MEDICARE [id number] SP [id number] A Medicare Blue Ppo Commercial [id number] .[id number] Self [id number] Ghi [place] Part B [id number] 0555.0 Self [id number] Aarp Medigap Part B [id number] 0555.0 Self [id number] Medicare [place]/[facility] Medicare Primary [id number] Self [id number] MEDICARE C [id number] S [id number] A [facility] Medigap Part B [id number] 0555.0 Self [id number] Problems, Conditions, and Diagnoses Code Display Name Description Problem Type Effective Dates Data Source(s) G47.00 Insomnia, unspecified INSOMNIA, UNSPECIFIED Diagnosis 07/27/2021 11:20:00 AM [facility] F43.29 Adjustment disorder with other symptoms ADJUSTMENT DISORDER WITH OTHER SYMPTOMS Diagnosis 07/27/2021 11:20:00 AM [facility] F33.0 Major depressive disorder, recurrent, mi ld MAJOR DEPRESSIVE DISORDER, RECURRENT, MILD Diagnosis 07/27/2021 11:20:00 AM [facility] F41.1 Generalized anxiety disorder GENERALIZED ANXIETY DISOR LLOYD Diagnosis 07/27/2021 11:20:00 AM [facility] F70 Mild intellectual disabilities MILD INTELLECTUAL DISAB ILITIES Diagnosis 07/25/2021 03:45:00 PM [facility] F43.21 Adjustment disorder with depressed mood ADJUSTMENT DISORDER WITH DEPRESSED MOOD Diagnosis 07/25/2021 03:45:00 PM [facility] F33.1 Major depressive disorder, recurrent, mo derate MAJOR DEPRESSIVE DISORDER, RECURRENT, MODERATE Diagnosis 06/14/2021 01:00:00 PM [facility] Surgeries/Procedures Procedure Description Date Indications Data Source(s) OFFICE OUTPATIENT VISIT 15 MINUTES 09/08/2021 12:00:00 AM EST [facility] ([facility], ) OFFICE OUTPATIENT VISIT 15 MINUTES 08/10/2021 12:00:00 AM EDT [facility] ([facility]) OFFICE OUTPATIENT VISIT 25 MINUTES 07/26/2021 12:00:00 AM EDT [facility] ([facility], ) DESTRUCTION BENIGN LESIONS UP TO 14 05/26/2021 12:00:0 0 AM EDT [facility] ([facility]) OFFICE OUTPATIENT VISIT 25 MINUTES 05/26/2021 12:00:00 AM EDT [facility] ([facility]) OFFICE OUTPATIENT VISIT 15 MINUTES 05/18/2021 12:00:00 AM EDT [facility] ([facility], ) OFFICE OUTPATIENT VISIT 25 MINUTES 04/28/2021 12:00:00 AM EDT [facility] ([facility], ) OFFICE OUTPATIENT VISIT 25 MINUTES 03/13/2021 12:00:00 AM EDT [facility] ([facility]) OFFICE OUTPATIENT VISIT 25 MINUTES 03/13/2021 12:00:00 AM EDT [facility] ([facility]) BRNCDILAT RSPSE SPMTRY PRE&POST-BRNCDILAT ADMN 021 12:00:00 AM EDT [facility] ([facility]) PHYSICIAN TELEPHONE EVALUATION 21-30 MIN 01/25/2021 12 :00:00 AM EDT [facility] ([facility]) Results ID Date Data Source [id number] 08/15/2021 09:58:00 AM EDT [facility] ([facility]) Name Value Range Interpretation Code Description Data Phuong rce(s) Supporting Document(s) Ast/Sgot 62 U/L 7-37 Above high normal [facility] ([facility]) Alkaline Phosphatase 72 U/L 45-117 Normal (applies to non-num nkechi results) [facility] ([facility]) Alt/SGPT 90 U/L 12-78 Above high normal [facility] ([facility]) Bilirubin,Direct 0.2 mg/dL 0.0-0.2 Normal (applies to non-numeric results) [facility] ([facility]) Bilirubin,Total 0.6 mg/dL 0.2-1.0 Normal (applies to non-numeric results) [facility] ([facility]) Albumin 3.8 GM/DL 3.2-5.2 Normal (applies to non-numeric resul ts) [facility] ([facility]) Total Protein 7.9 GM/DL 6.4-8.2 Normal (applies to non-numeric re sults) [facility] ([facility]) Albumin/Globulin Ratio 0.9 1.2-2.2 Below low normal [facility] ([facility]) ID Date Data Source [id number] 08/15/2021 09:58:00 AM EDT [facility] ([facility]) Name Value Range Interpretation Code Description Data Phuong rce(s) Supporting Document(s) Glucose, Fasting 128 mg/dL 70-100 Above high normal M [facility] ([facility]) Creatinine For GFR 0.93 mg/dL 0.55-1.30 Normal (applies to non -numeric results) [facility] ([facility]) Blood Urea Nitrogen 13 mg/dL 7-18 Normal (applies to non-nume sophie results) [facility] ([facility]) Glomerular Filtration Rate Laboratory test result Normal (applies to non- numeric results) [facility] ([facility]) <content>Units are mL/min/1.73 m2</content>
<content></content>
<content>Chronic Kidney Disease Staging per NKF:</content>
<content></content>
<content>Stage I & II GFR >=60 Normal to Mildly Decreased</content>
<content>Stage III GFR 30- 59 Moderately Decreased</content>
<content>Stage IV GFR 15-29 Severely Decreased</content>
<content>Stage V GFR <15 Very Little GFR Left</content>
<content>ESRD GFR <15 on [employer]</content>
<content></content> Sodium Level 141 meq/L 136-145 Normal (applies to non-numeric res ults) [facility] ([facility]) Potassium Serum 3.9 meq/L 3.5-5.1 Normal (applies to non-numeric results) [facility] ([facility]) Chloride Level 107 meq/L 98-107 Normal (applies to non-numeric r esults) [facility] ([facility]) Anion Gap 7 meq/L 8-16 Below low normal [facility] ( [facility]) Calcium Level 8.9 mg/dL 8.5-10.1 Normal (applies to non-numeric re sults) [facility] ([facility]) Carbon Dioxide Level 27 meq/L 21-32 Normal (applies to non-num nkechi results) [facility] ([facility]) ID Date Data Source [id number] 08/15/2021 09:58:00 AM EDT [facility] ([facility]) Name Value Range Interpretation Code Description Data Phuong rce(s) Supporting Document(s) Free T4 1.05 ng/dL 0.76-1.46 Normal (applies to non-numeric resul ts) [facility] ([facility]) Thyroid Stimulating Hormone 1.290 uIU/ML 0.358-3.740 Norm al (applies to non- numeric results) [facility] ([facility]) ID Date Data Source [id number] 08/15/2021 09:58:00 AM EDT [facility] ([facility]) Name Value Range Interpretation Code Description Data Phuong rce(s) Supporting Document(s) White Blood Count 8.9 10 4.0-10.0 Normal (applies to non-numeri c results) [facility] ([facility]) Hemoglobin 15.1 g/dL 12.0-15.5 Normal (applies to non-numeric resul ts) [facility] ([facility]) Red Blood Count 5.29 10 4.00-5.40 Normal (applies to non-numeric results) [facility] ([facility]) Mean Corpuscular Volume 87.1 fl 80.0-96.0 Normal ( applies to non-numeric results) [facility] ([facility]) Hematocrit 46.1 % 36.0-47.0 Normal (applies to non-numeric resul ts) [facility] ([facility]) Mean Corpuscular Hemoglobin 28.5 pg 27.0-33.0 Norm al (applies to non-numeric results) [facility] ([facility]) Mean Corpuscular HGB Conc 32.8 g/dL 32.0-36.5 Normal (applies to non-numeric results) [facility] ([facility]) Red Cell Distribution Width 13.3 % 11.5-14.5 Norm al (applies to non-numeric results) [facility] ([facility]) Platelet Count, Automated 207 10 150-450 Normal (applies to non-numeric results) [facility] ([facility]) Lymph % 14.3 % 24.0-44.0 Below low normal [facility] ( [facility]) [place] % 8.1 % 2.0-8.0 Above high normal [facility] ([facility]) Neutrophils % 72.1 % 36.0-66.0 Above high normal [facility] ([facility]) Baso % 1.1 % 0.0-1.0 Above high normal [facility] ([facility]) Eos % 3.7 % 0.0-3.0 Above high normal [facility] ([facility]) Nucleated Red Blood Cell % 0.0 % 0-0 Normal (applies to n on-numeric results) [facility] ([facility]) Immature Granulocyte % 0.7 % 0-3.0 Normal (applies to non-n umeric results) [facility] ([facility]) Lymph # 1.3 10 1.5-5.0 Below low normal [facility] ( [facility]) Neutrophils # 6.4 10 1.5-8.5 Normal (applies to non-numeric re sults) [facility] ([facility]) Baso # 0.1 10 0.0-0.2 Normal (applies to non-numeric resul ts) [facility] ([facility]) Eos # 0.3 10 0.0-0.5 Normal (applies to non-numeric resul ts) [facility] ([facility]) [place] # 0.7 10 0.0-0.8 Normal (applies to non-numeric resul ts) [facility] ([facility]) ID Date Data Source [id number] 03/17/2021 08:48:00 AM EDT [facility]) Name Value Range Interpretation Code Description Data Phuong rce(s) Supporting Document(s) Cholesterol Level 132 mg/dL Normal (applies to non-numeri c results) [facility] ([facility]) Triglycerides Level 68 mg/dL Normal (applies to non-nume sophie results) [facility] ([facility]) HDL Cholesterol 49 mg/dL Normal (applies to non-numeric results) [facility] ([facility]) LDL Cholesterol 69 mg/dL Normal (applies to non-numeric results) [facility] ([facility]) Non-HDL-C 83 mg/dL Normal (applies to non-numeric resul ts) [facility] ([facility]) Cholesterol Risk Ratio 2.693 Normal (applies to non-n umeric results) [facility] ([facility]) ID Date Data Source [id number] 03/17/2021 08:48:00 AM EDT [facility]) Name Value Range Interpretation Code Description Data Phuong rce(s) Supporting Document(s) Folate Laboratory test result Normal (applies to non-n umeric results) [facility] ([facility]) FOLATE NORMAL RANGE NORMAL GREATER THAN 5.4 NG/ML INDETERMINATE 3.4-5.4 NG/ML DEFICIENT LESS THAN 3.4 NG/ML Vitamin B12 Level 1700 pg/mL Normal (applies to non-numeri c results) [facility] ([facility]) VITAMIN B12 NORMAL RANGE NORMAL 247 - 911 PG/ML INDETERMINATE 211 - 246 PG/ML DEFICIENT LESS THAN 211 PG/ML ID Date Data Source [id number] 03/17/2021 08:48:00 AM EDT [facility]) Name Value Range Interpretation Code Description Data Phuong rce(s) Supporting Document(s) Calcidiol [Mass/volume] in Serum or Plasma 51.2 ng/mL 30.0- 100.0 Normal (applies to non-numeric results) [facility] ([facility]) ID Date Data Source [id number] 03/17/2021 08:48:00 AM EDT [facility]) Name Value Range Interpretation Code Description Data Phuong rce(s) Supporting Document(s) Thyroid Stimulating Hormone 1.560 uIU/ML 0.358-3.740 Norm al (applies to non- numeric results) [facility] ([facility]) Free T4 1.27 ng/dL 0.76-1.46 Normal (applies to non-numeric resul ts) [facility] ([facility]) ID Date Data Source [id number] 03/17/2021 08:48:00 AM EDT [facility]) Name Value Range Interpretation Code Description Data Phuong rce(s) Supporting Document(s) Blood Urea Nitrogen 17 mg/dL 7-18 Normal (applies to non-nume sophie results) [facility] ([facility]) Glucose, Fasting 108 mg/dL 70-100 Above high normal [facility] ([facility]) Creatinine For GFR 0.86 mg/dL 0.55-1.30 Normal (applies to non -numeric results) [facility] ([facility]) Glomerular Filtration Rate Laboratory test result Normal (applies to non- numeric results) [facility] ([facility]) <content>Units are mL/min/1.73 m2</content>
<content></content>
<content>Chronic Kidney Disease Staging per NKF:</content>
<content></content>
<content>Stage I & II GFR >=60 Normal to Mildly Decreased</content>
<content>Stage III GFR 30- 59 Moderately Decreased</content>
<content>Stage IV GFR 15-29 Severely Decreased</content>
<content>Stage V GFR <15 Very Little GFR Left</content>
<content>ESRD GFR <15 on TOW TRUCK DISPATCHER</content>
<content></content> Sodium Level 142 meq/L 136-145 Normal (applies to non-numeric res ults) [facility] ([facility]) Potassium Serum 3.7 meq/L 3.5-5.1 Normal (applies to non-numeric results) [facility] ([facility]) Anion Gap 5 meq/L 8-16 Below low normal [facility] Chloride Level 106 meq/L 98-107 Normal (applies to non-numeric r esults) [facility] ([facility]) Carbon Dioxide Level 31 meq/L 21-32 Normal (applies to non-num nkechi results) [facility] ([facility]) Calcium Level 8.9 mg/dL 8.5-10.1 Normal (applies to non-numeric re sults) [facility] ([facility]) Ast/Sgot 46 U/L 7-37 Above high normal [facility] Alt/SGPT 86 U/L 12-78 Above high normal [facility] Alkaline Phosphatase 74 U/L 45-117 Normal (applies to non-num nkechi results) [facility] ([facility]) Albumin 3.7 GM/DL 3.2-5.2 Normal (applies to non-numeric resul ts) [facility] ([facility]) Total Protein 7.3 GM/DL 6.4-8.2 Normal (applies to non-numeric re sults) [facility] ([facility]) Bilirubin,Total 0.5 mg/dL 0.2-1.0 Normal (applies to non-numeric results) [facility] ([facility]) Albumin/Globulin Ratio 1.0 1.2-2.2 Below low normal [facility] ([facility]) ID Date Data Source [id number] 03/17/2021 08:48:00 AM EDT [facility] ([facility]) Name Value Range Interpretation Code Description Data Phuong rce(s) Supporting Document(s) White Blood Count 6.8 10 4.0-10.0 Normal (applies to non-numeri c results) [facility] ([facility]) Hemoglobin 15.0 g/dL 12.0-15.5 Normal (applies to non-numeric resul ts) [facility] ([facility]) Red Blood Count 5.25 10 4.00-5.40 Normal (applies to non-numeric results) [facility] ([facility]) Hematocrit 46.9 % 36.0-47.0 Normal (applies to non-numeric resul ts) [facility] ([facility]) Mean Corpuscular Volume 89.3 fl 80.0-96.0 Normal ( applies to non-numeric results) [facility] ([facility]) Mean Corpuscular HGB Conc 32.0 g/dL 32.0-36.5 Normal (applies to non-numeric results) [facility] ([facility]) Mean Corpuscular Hemoglobin 28.6 pg 27.0-33.0 Norm al (applies to non-numeric results) [facility] ([facility]) Platelet Count, Automated 180 10 150-450 Normal (applies to non-numeric results) [facility] ([facility]) Red Cell Distribution Width 13.3 % 11.5-14.5 Norm al (applies to non-numeric results) [facility] ([facility]) Neutrophils % 65.4 % 36.0-66.0 Normal (applies to non-numeric re sults) [facility] ([facility]) [place] % 9.8 % 2.0-8.0 Above high normal [facility] ([facility]) Lymph % 19.8 % 24.0-44.0 Below low normal [facility] ( [facility]) Eos % 3.7 % 0.0-3.0 Above high normal [facility] ([facility]) Baso % 0.9 % 0.0-1.0 Normal (applies to non-numeric resul ts) [facility] ([facility]) Immature Granulocyte % 0.4 % 0-3.0 Normal (applies to non-n umeric results) [facility] ([facility]) Nucleated Red Blood Cell % 0.0 % 0-0 Normal (applies to n on-numeric results) [facility] ([facility]) Neutrophils # 4.5 10 1.5-8.5 Normal (applies to non-numeric re sults) [facility] ([facility]) Lymph # 1.4 10 1.5-5.0 Below low normal [facility] ( [facility]) [place] # 0.7 10 0.0-0.8 Normal (applies to non-numeric resul ts) [facility] ([facility]) Eos # 0.3 10 0.0-0.5 Normal (applies to non-numeric resul ts) [facility] ([facility]) Baso # 0.1 10 0.0-0.2 Normal (applies to non-numeric resul ts) [facility] ([facility]) ID Date Data Source [id number] 10/29/2020 12:00:00 AM EST [facility] Name Value Range Interpretation Code Description Data Phuong rce(s) Supporting Document(s) SARS-CoV-2 (COVID-19) RNA [Presence] in Respiratory specimen by CHANTE with probe detection [facility] This lab was ordered by [facility] [employer] and reported by [employer]. ID Date Data Source [id number] 10/06/2020 12:00:00 AM EST [facility] Name Value Range Interpretation Code Description Data Phuong rce(s) Supporting Document(s) 2019-nCoV RNA XXX CHANTE+probe-Imp [facility] This lab was ordered by [facility] [employer] and reported by [employer]. ID Date Data Source [id number] 09/14/2020 10:09:00 AM EST [facility] ([facility]) Name Value Range Interpretation Code Description Data Phuong rce(s) Supporting Document(s) Cholesterol Level 155 mg/dL Normal (applies to non-numeri c results) [facility]) Triglycerides Level 108 mg/dL Normal (applies to non-nume sophie results) [facility] ([facility]) Non-HDL-C 108 mg/dL Normal (applies to non-numeric resul ts) [facility] ([facility]) LDL Cholesterol 86 mg/dL Normal (applies to non-numeric results) [facility] ([facility]) HDL Cholesterol 47 mg/dL Normal (applies to non-numeric results) [facility] ([facility]) Cholesterol Risk Ratio 3.297 Normal (applies to non-n umeric results) [facility] ([facility]) ID Date Data Source [id number] 09/14/2020 10:09:00 AM EST [facility] ([facility]) Name Value Range Interpretation Code Description Data Phuong rce(s) Supporting Document(s) Calcidiol [Mass/volume] in Serum or Plasma 31.7 ng/mL 30.0- 100.0 Normal (applies to non-numeric results) [facility] ([facility]) ID Date Data Source [id number] 09/14/2020 10:09:00 AM EST [facility] ([facility]) Name Value Range Interpretation Code Description Data Phuong rce(s) Supporting Document(s) Glucose, Fasting 114 mg/dL 70-100 Above high normal [facility] ([facility]) Creatinine For GFR 0.78 mg/dL 0.55-1.30 Normal (applies to non -numeric results) [facility]) Blood Urea Nitrogen 18 mg/dL 7-18 Normal (applies to non-nume sophie results) [facility] ([facility]) Glomerular Filtration Rate Laboratory test result Normal (applies to non- numeric results) [facility] ([facility]) <content>Units are mL/min/1.73 m2</content>
<content></content>
<content>Chronic Kidney Disease Staging per NKF:</content>
<content></content>
<content>Stage I & II GFR >=60 Normal to Mildly Decreased</content>
<content>Stage III GFR 30- 59 Moderately Decreased</content>
<content>Stage IV GFR 15-29 Severely Decreased</content>
<content>Stage V GFR <15 Very Little GFR Left</content>
<content>ESRD GFR <15 on TOW TRUCK DISPATCHER</content>
<content></content> Sodium Level 143 meq/L 136-145 Normal (applies to non-numeric res ults) [facility] ([facility]) Carbon Dioxide Level 29 meq/L 21-32 Normal (applies to non-num nkechi results) [facility] ([facility]) Potassium Serum 4.1 meq/L 3.5-5.1 Normal (applies to non-numeric results) [facility] ([facility]) Chloride Level 110 meq/L 98-107 Above high normal [facility] ([facility]) Anion Gap 4 meq/L 8-16 Below low normal [facility] Calcium Level 9.1 mg/dL 8.5-10.1 Normal (applies to non-numeric re sults) [facility] ([facility]) Alt/SGPT 83 U/L 12-78 Above high normal [facility] Ast/Sgot 46 U/L 7-37 Above high normal [facility] Alkaline Phosphatase 70 U/L 45-117 Normal (applies to non-num nkechi results) [facility] ([facility]) Total Protein 7.7 GM/DL 6.4-8.2 Normal (applies to non-numeric re sults) [facility] ([facility]) Bilirubin,Total 0.5 mg/dL 0.2-1.0 Normal (applies to non-numeric results) [facility] ([facility]) Albumin 3.7 GM/DL 3.2-5.2 Normal (applies to non-numeric resul ts) [facility] ([facility]) Albumin/Globulin Ratio 0.9 1.2-2.2 Below low normal [facility] ([facility]) ID Date Data Source [id number] 09/14/2020 10:09:00 AM EST [facility] ([facility]) Name Value Range Interpretation Code Description Data Phuong rce(s) Supporting Document(s) White Blood Count 7.1 10 4.0-10.0 Normal (applies to non-numeri c results) [facility] ([facility]) Hemoglobin 14.9 g/dL 12.0-15.5 Normal (applies to non-numeric resul ts) [facility] ([facility]) Red Blood Count 5.40 10 4.00-5.40 Normal (applies to non-numeric results) [facility] ([facility]) Hematocrit 46.8 % 36.0-47.0 Normal (applies to non-numeric resul ts) [facility] ([facility]) Mean Corpuscular Volume 86.7 fl 80.0-96.0 Normal ( applies to non-numeric results) [facility] ([facility]) Mean Corpuscular Hemoglobin 27.6 pg 27.0-33.0 Norm al (applies to non-numeric results) [facility] ([facility]) Mean Corpuscular HGB Conc 31.8 g/dL 32.0-36.5 Below low normal [facility] ([facility]) Red Cell Distribution Width 13.5 % 11.5-14.5 Norm al (applies to non-numeric results) [facility] ([facility]) Neutrophils % 68.5 % 36.0-66.0 Above high normal [facility] ([facility]) Lymph % 18.3 % 24.0-44.0 Below low normal [facility] ( [facility]) Platelet Count, Automated 211 10 150-450 Normal (applies to non-numeric results) [facility] ([facility]) Eos % 3.4 % 0.0-3.0 Above high normal [facility] ([facility]) [place] % 8.2 % 0.0-5.0 Above high normal [facility] ([facility]) Immature Granulocyte % 0.3 % 0-3.0 Normal (applies to non-n umeric results) [facility] ([facility]) Baso % 1.3 % 0.0-1.0 Above high normal [facility] ([facility]) Nucleated Red Blood Cell % 0.0 % 0-0 Normal (applies to n on-numeric results) [facility] ([facility]) Lymph # 1.3 10 1.5-5.0 Below low normal [facility] ( [facility]) Neutrophils # 4.8 10 1.5-8.5 Normal (applies to non-numeric re sults) [facility] ([facility]) [place] # 0.6 10 0.0-0.8 Normal (applies to non-numeric resul ts) [facility] ([facility]) Eos # 0.2 10 0.0-0.5 Normal (applies to non-numeric resul ts) [facility] ([facility]) Baso # 0.1 10 0.0-0.2 Normal (applies to non-numeric resul ts) [facility] ([facility]) ID Date Data Source [id number] 09/14/2020 10:09:00 AM EST [facility] ([facility]) Name Value Range Interpretation Code Description Data Phuong rce(s) Supporting Document(s) Thyroid Stimulating Hormone 0.907 uIU/ML 0.358-3.740 Norm al (applies to non- numeric results) [facility] ([facility]) Free T4 1.16 ng/dL 0.76-1.46 Normal (applies to non-numeric resul ts) [facility] ([facility]) Procedure Social History Code Duration Value Status Description Data Source(s ) Smoking 10/05/2021 12:00:00 AM EST Patient has never smoked co mpleted Patient has never smoked [facility] ([facility] ) Smoking 09/08/2021 12:00:00 AM EST Patient has never smoked co mpleted Patient has never smoked [facility] ([facility], ) Vital Signs ID Date Data Source UNK Name Value Range Interpretation Code Description Data Source(s) Body weight 210.00 [lb_av] 210.00 [lb_av] [facility] ([facility] [place] Body height 60 [in_i] 60 [in_i] [facility] 5'0" Heart rate 80 /min 80 /min [facility] Systolic blood pressure 133 mm[Hg] 133 mm[Hg] M [facility] ([facility]) Diastolic blood pressure 90 mm[Hg] 90 mm[Hg] [facility] Body mass index (BMI) [Ratio] 41.0 kg/m2 41.0 k g/m2 [facility] Body weight 210.00 [lb_av] 210.00 [lb_av] [facility] ([facility]) Respiratory rate 18 /min 18 /min [facility] ( [facility]) Diastolic blood pressure 78 mm[Hg] 78 mm[Hg] [facility] ([facility]) Body height 60.25 [in_i] 60.25 [in_i] [facility] ([facility]) 5'0.25" Body weight 213.00 [lb_av] 213.00 [lb_av] [facility] ([facility]) Body mass index (BMI) [Ratio] 41.2 kg/m2 41.2 k g/m2 [facility] ([facility]) Heart rate 101 /min 101 /min [facility] ([facility]) Respiratory rate 18 /min 18 /min [facility] ( [facility]) Body temperature 98.9 [degF] 98.9 [degF] [facility] ([facility]) Oxygen saturation in Arterial blood by Pulse oximetry 95 % 95 % [facility] ([facility]) [place] body weight 100 [lb_av] 100 [lb_av] [facility] ([facility]) Systolic blood pressure 126 mm[Hg] 126 mm[Hg] M [facility] ([facility]) Systolic blood pressure 110 mm[Hg] 110 mm[Hg] M [facility] ([facility], ) Diastolic blood pressure 70 mm[Hg] 70 mm[Hg] [facility] ([facility], ) Body weight 96.163 kg 96.163 kg [facility] ([facility], ) Body weight 212.00 [lb_av] 212.00 [lb_av] [facility] T ([facility], ) Heart rate 70 /min 70 /min [facility] ([facility], ) Oxygen saturation in Arterial blood by Pulse oximetry 96 % 96 % [facility]) Respiratory rate 18 /min 18 /min [facility] ( [facility]) Body height 60 [in_i] 60 [in_i] [facility] ([facility]) 5'0" Body mass index (BMI) [Ratio] 41.4 kg/m2 41.4 k g/m2 [facility] ([facility]) [place] body weight 100 [lb_av] 100 [lb_av] [facility] T ([facility]) Body surface area Derived from formula 1.91 m2 1.91 m2 [facility] ([facility]) Body mass index (BMI) [Ratio] 40.7 kg/m2 40.7 k g/m2 [facility] ([facility]) Body weight 210.25 [lb_av] 210.25 [lb_av] [facility] ([facility]) Diastolic blood pressure 78 mm[Hg] 78 mm[Hg] [facility] Heart rate 85 /min 85 /min [facility]) Respiratory rate 12 /min 12 /min [facility] ( [facility]) Systolic blood pressure 130 mm[Hg] 130 mm[Hg] [facility] Body temperature 98.9 [degF] 98.9 [degF] [facility] ([facility]) Oxygen saturation in Arterial blood by Pulse oximetry 98 % 98 % [facility] ([facility]) [place] body weight 100 [lb_av] 100 [lb_av] [facility] ([facility]) Body height 60.25 [in_i] 60.25 [in_i] [facility]) 5'0.25" Systolic blood pressure 110 mm[Hg] 110 mm[Hg] M [facility] ([facility], ) Diastolic blood pressure 80 mm[Hg] 80 mm[Hg] [facility] ([facility]) Heart rate 80 /min 80 /min [facility] ([facility]) Respiratory rate 20 /min 20 /min [facility] ( [facility]) Body mass index (BMI) [Ratio] 38.9 kg/m2 38.9 k g/m2 [facility] ([facility]) Body weight 199.00 [lb_av] 199.00 [lb_av] [facility] T ([facility]) Body height 60 [in_i] 60 [in_i] [facility] ([facility]) 5'0" Systolic blood pressure 130 mm[Hg] 130 mm[Hg] [facility] ([facility]) Diastolic blood pressure 70 mm[Hg] 70 mm[Hg] [facility] ([facility]) Body weight 92.988 kg 92.988 kg [facility] ([facility]) Body surface area Derived from formula 1.89 m2 1.89 m2 [facility] ([facility]) Oxygen saturation in Arterial blood by Pulse oximetry 97 % 97 % [facility] ([facility]) Body mass index (BMI) [Ratio] 40.0 kg/m2 40.0 k g/m2 [facility] ([facility]) Systolic blood pressure 120 mm[Hg] 120 mm[Hg] [facility] ([facility]) Diastolic blood pressure 80 mm[Hg] 80 mm[Hg] [facility] ([facility]) Heart rate 87 /min 87 /min [facility] ([facility]) Body height 60 [in_i] 60 [in_i] [facility] ([facility]) 5'0" Body weight 205.00 [lb_av] 205.00 [facility]_av] [facility] [place] body weight 100 [lb_av] 100 [lb_av] [facility] Heart rate 78 /min 78 /min [facility] ([facility]) Respiratory rate 16 /min 16 /min [facility] ( [facility]) Systolic blood pressure 130 mm[Hg] 130 mm[Hg] [facility] ([facility]) Diastolic blood pressure 80 mm[Hg] 80 mm[Hg] [facility] ([facility]) Diastolic blood pressure 72 mm[Hg] 72 mm[Hg] [facility] ([facility]) Systolic blood pressure 118 mm[Hg] 118 mm[Hg] [facility] ([facility]) Body height 60.25 [in_i] 60.25 [in_i] [facility] ([facility]) 5'0.25" Body mass index (BMI) [Ratio] 39.9 kg/m2 39.9 k g/m2 MEDENT ([facility]) Respiratory rate 14 /min 14 /min MEDENT ( [facility]) Body temperature 98.8 [degF] 98.8 [degF] [facility] ([facility]) Oxygen saturation in Arterial blood by Pulse oximetry 98 % 98 % MEDENT ([facility]) Body weight 206.00 [lb_av] 206.00 [lb_av] MEDEN T ([facility]) Heart rate 100 /min 100 /min MED[facility] ([facility]) [place] body weight 100 [lb_av] 100 [lb_av] MEDEN T ([facility]) Body weight 202.00 [lb_av] 202.00 [lb_av] MEDEN T ([facility]) Systolic blood pressure 132 mm[Hg] 132 mm[Hg] EDENT ([facility]) Diastolic blood pressure 84 mm[Hg] 84 mm[Hg] MEDENT ([facility]) Body temperature 97.0 [degF] 97.0 [degF] MEDENT ([facility]) Body weight 213.25 [lb_av] 213.25 [lb_av] MEDEN T ([facility]) Diastolic blood pressure 83 mm[Hg] 83 mm[Hg] MEDENT ([facility]) Body mass index (BMI) [Ratio] 41.6 kg/m2 41.6 k g/m2 [facility] Heart rate 88 /min 88 /min [facility] ([facility] Respiratory rate 16 /min 16 /min [facility] ( [facility] Systolic blood pressure 129 mm[Hg] 129 mm[Hg] M EDENT ([facility]) Body height 60 [in_i] 60 [in_i] MEDENT ([facility] 5'0" Heart rate 98 /min 98 /min MEDENT ([facility]) Systolic blood pressure 128 mm[Hg] 128 mm[Hg] M EDENT ([facility]) Diastolic blood pressure 82 mm[Hg] 82 mm[Hg] SUPRIYA ([facility]) Body height 60.25 [in_i] 60.25 [in_i] SUPRIYA ([facility]) 5'0.25" Body weight 209.38 [lb_av] 209.38 [lb_av] CRISTELA Velez ([facility]) Body mass index (BMI) [Ratio] 40.5 kg/m2 40.5 k g/m2 SUPRIYA ([facility]) Respiratory rate 20 /min 20 /min SUPRIYA ( [facility]) Body temperature 99.6 [degF] 99.6 [degF] SUPRIYA ([facility]) Oxygen saturation in Arterial blood by Pulse oximetry 97 % 97 % SUPRIYA ([facility]) [place] body weight 100 [lb_av] 100 [lb_av] CRISTELA Velez ([facility])
[2021-10-05] MEDS ORDERED: AMOX500T (19:06)
[2021-10-05] MEDS ORDERED: LEVOTAB10 (19:06)
--- NOTE | 2021-10-05 19:58 | REP ---
INDICATION: twisted ankle COMPARISON: 04/01/2015. TECHNIQUE: Four views right ankle. FINDINGS: There is no evidence of acute fracture, dislocation, or intrinsic bone disease.Accessory ossicle or old avulsion fracture is again seen adjacent to the medial malleolus. The ankle mortise is anatomic. IMPRESSION: No acute fracture or dislocation. <Electronically signed by Buddy Roldan > 10/05/211954
[2021-10-05 22:41] VITALS: BP 130/83
--- OUTSIDE RECORDS SUMMARY | 2021-10-05 23:01 | CCD ---
Author Author [facility] Organization [facility] Address Unknown Phone Unavailable Care Team Providers Care Coat Baster Name Role Phone Festus Paez MD Unavailable [...] Unavailable Unavailable ESTEBAN NAIDU MD Unavailable Unavailable ESTEBNA NAIDU MD Unavailable Unavailable ESTEBAN NAIDU MD [...] Unavailable Unavailable RIKA-MARYCARMEN, TOÑA DO Unavailable Unavailable RKIA-MARYCARMEN, TOÑA DO Unavailable Unavailable RIKA-MARYCARMEN, TOÑA DO [...] Unavailable Unavailable RIKA-MARYCARMEN, TOÑA DO Unavailable Unavailable RKIA-MARYCARMEN, TOÑA DO Unavailable Unavailable RIKA-MARYCARMEN, TOÑA DO [...] J Meaghan PA Unavailable Unavailable DESJARLAIS, CHANNING HIGHBALLER Unavailable Unavailable DESJARLAIS, CHANNING HIGHBALLER Unavailable Unavailable DESJARLAIS, CHANNING HIGHBALLER Unavailable Unavailable DESJARLAIS, CHANNING HIGHBALLER Unavailable Unavailable DESJARLAIS, CHANNING HIGHBALLER Unavailable Unavailable DESJARLAIS, CHANNING HIGHBALLER Unavailable Unavailable DESJARLAIS, CHANNING HIGHBALLER Unavailable Unavailable DESJARLAIS, CHANNING HIGHBALLER Unavailable Unavailable DESJARLAIS, CHANNING HIGHBALLER Unavailable Unavailable DESJARLAIS, CHANNING HIGHBALLER Unavailable Unavailable Hickey, Renee Unavailable Hickey, Renee Unavailable Tameka HAND Unavailable Unavailable MARAH, DANDRE ELDER MANAGER MARKET INTELLIGENCE-C Unavailable Unavailable MARAH, DANDRE ELDER MANAGER MARKET INTELLIGENCE-C Unavailable Unavailable MARAH, DANDRE ELDER MANAGER MARKET INTELLIGENCE-C Unavailable Unavailable MARAH, DANDRE ELDER MANAGER MARKET INTELLIGENCE-C Unavailable Unavailable MARAH, DANDRE ELDER MANAGER MARKET INTELLIGENCE-C Unavailable Unavailable MARAH, DANDRE ELDER MANAGER MARKET INTELLIGENCE-C Unavailable Unavailable MARAH, DANDRE ELDER MANAGER MARKET INTELLIGENCE-C Unavailable Unavailable MARAH, DANDRE ELDER MANAGER MARKET INTELLIGENCE-C Unavailable Unavailable MARAH, DANDRE ELDER MANAGER MARKET INTELLIGENCE-C Unavailable Unavailable MARAH, DANDRE ELDER MANAGER MARKET INTELLIGENCE-C Unavailable Unavailable MARAH, DANDRE ELDER MANAGER MARKET INTELLIGENCE-C Unavailable Unavailable MARAH, DANDRE ELDER MANAGER MARKET INTELLIGENCE-C Unavailable Unavailable MARAH, DANDRE ELDER MANAGER MARKET INTELLIGENCE-C Unavailable Unavailable MARAH, DANDRE ELDER MANAGER MARKET INTELLIGENCE-C Unavailable Unavailable MARAH, DANDRE ELDER MANAGER MARKET INTELLIGENCE-C Unavailable Unavailable MARAH, DANDRE ELDER MANAGER MARKET INTELLIGENCE-C Unavailable Unavailable MARAHDANDRE Mohamud MANAGER MARKET INTELLIGENCE-C Unavailable Unavailable Stickney, Scarlett MANAGER MARKET INTELLIGENCE Unavailable Unavailable Stickney, Scarlett MANAGER MARKET INTELLIGENCE Unavailable Unavailable Stickney, Scarlett MANAGER MARKET INTELLIGENCE Unavailable Unavailable Stickney, Scarlett MANAGER MARKET INTELLIGENCE Unavailable Unavailable Stickney, Scarlett MANAGER MARKET INTELLIGENCE Unavailable Unavailable Stickney, Scarlett MANAGER MARKET INTELLIGENCE Unavailable Unavailable Stickney, Scarlett MANAGER MARKET INTELLIGENCE Unavailable Unavailable Stickney, Scarlett MANAGER MARKET INTELLIGENCE Unavailable Unavailable Stickney, Scarlett MANAGER MARKET INTELLIGENCE Unavailable Unavailable Stickney, Scarlett MANAGER MARKET INTELLIGENCE Unavailable Unavailable Stickney, Scarlett MANAGER MARKET INTELLIGENCE Unavailable Unavailable Stickney, Scarlett MANAGER MARKET INTELLIGENCE Unavailable Unavailable Stickney, Scarlett MANAGER MARKET INTELLIGENCE Unavailable Unavailable Stickney, Scarlett MANAGER MARKET INTELLIGENCE Unavailable Unavailable Stickney, Scarlett MANAGER MARKET INTELLIGENCE Unavailable Unavailable Stickney, Scarlett MANAGER MARKET INTELLIGENCE Unavailable Unavailable Stickney, Scarlett MANAGER MARKET INTELLIGENCE Unavailable Unavailable Stickney, Scarlett MANAGER MARKET INTELLIGENCE Unavailable Unavailable Stickney, Scarlett MANAGER MARKET INTELLIGENCE Unavailable Unavailable Stickney, Scarlett MANAGER MARKET INTELLIGENCE Unavailable Unavailable Stickney, Scarlett MANAGER MARKET INTELLIGENCE Unavailable Unavailable Stickney, Scarlett MANAGER MARKET INTELLIGENCE Unavailable Unavailable Stickney, Scarlett MANAGER MARKET INTELLIGENCE Unavailable Unavailable Stickney, Scarlett MANAGER MARKET INTELLIGENCE Unavailable Unavailable Stickney, Scarlett MANAGER MARKET INTELLIGENCE Unavailable Unavailable Stickney, Scarlett MANAGER MARKET INTELLIGENCE Unavailable Unavailable Stickney, Scarlett MANAGER MARKET INTELLIGENCE Unavailable Unavailable Stickney, Scarlett MANAGER MARKET INTELLIGENCE Unavailable Unavailable Stickney, Scarlett MANAGER MARKET INTELLIGENCE Unavailable Unavailable Stickney, Scarlett MANAGER MARKET INTELLIGENCE Unavailable Unavailable Stickney, Scarlett MANAGER MARKET INTELLIGENCE Unavailable Unavailable Stickney, Scarlett MANAGER MARKET INTELLIGENCE Unavailable Unavailable Stickney, Scarlett MANAGER MARKET INTELLIGENCE Unavailable Unavailable Stickney, Scarlett MANAGER MARKET INTELLIGENCE Unavailable Unavailable Stickney, Scarlett MANAGER MARKET INTELLIGENCE Unavailable Unavailable Stickney, Scarlett MANAGER MARKET INTELLIGENCE Unavailable Unavailable Christian Hand Unavailable Christian Hand [...] Unavailable O'rony, A Shay PA Unavailable Unavailable KAMRAN, LUPILLO ERIC PA-C Unavailable [...] is protected by Article 27-F of the [facility] Public Health law. If you continue you may have access to information: Regarding HIV / AIDS; Provided by facilities licensed or operated by the [facility] Office of Mental Health; or Provided by the [facility] Office for People With Developmental Disabilities. If such information is present, then the following [facility] mandated warning applies: This information has [...] law may result in a fine or halfway sentence or both. A general authorization for the release of medical or other information is NOT sufficient authorization for further disc losure. Family History Family Member Name Family Member Gender Family Member Status Date o f Status Description Data Source(s) Unknown Unknown Problem MEDENT ([facility]) Unknown Male Problem [facility] ([facility] () Unknown Female Problem MEDENT ([facility] ) Encounters Encounter Providers Location Date Indications Data Source(s ) Outpatient Attender: Renee Calvillo 10/05/2021 03:00:00 PM [facility] Outpatient Attender: Renee Calvillo 09/29/2021 01:55:00 PM [facility] Outpatient Attender: Renee Calvillo 09/20/2021 02:45:00 PM [facility] Outpatient Attender: CHANNING JIMENES NP 09/15/2021 11: 20:00 AM [facility] Office Visit Attender: Shay AVITIA [facility] 09/14/2021 01:30:00 PM EST MEDENT ([facility]) Outpatient Attender: Erica Paez MDReferrer: TOÑA JENKINS DO [id number] 09/12/2021 12:17:34 AM EST [facility] Outpatient Attender: Renee Calvillo 09/11/2021 11:45:00 AM [facility] Outpatient Attender: ELDER GIPSON-Dilip Correa/Va/Josué/Christopher gupta 09/08/2021 02:00:00 PM EST MEDENT ([facility]) Outpatient Attender: Renee Calvillo 09/04/2021 11:00:00 AM [facility] Outpatient Attender: Renee Calvillo 08/24/2021 10:00:00 AM [facility] Outpatient Attender: CHANNING JIMENES NP 08/23/2021 11: 00:00 AM [facility] Outpatient Attender: Shay AVITIA [facility] 08/10/2021 01:10:00 PM EDT MEDENT ([facility]) Outpatient Attender: Renee Calvillo 08/09/2021 09:09:00 AM [facility] Outpatient Attender: Renee Calvillo 08/02/2021 03:45:00 PM [facility] Outpatient Attender: CHANNING JIMENES NP 07/27/2021 11: 20:00 AM [facility] Outpatient Attender: Meaghan AVITIA Main office - [facility] 07/26/2021 01:45:00 PM EDT MEDENT ([facility] ) Outpatient Attender: Renee Calvillo 07/25/2021 03:45:00 PM [facility] Outpatient Attender: Renee Calvillo 07/12/2021 01:15:00 PM [facility] Outpatient Attender: Renee Calvillo 07/05/2021 01:30:00 PM [facility] Outpatient Attender: CHANNING JIMENES NP 06/28/2021 11: 20:00 AM [facility] Outpatient Attender: Renee Calvillo 06/21/2021 12:30:00 PM [facility] Outpatient Attender: CHANNING JIMENES NP 06/14/2021 01: 00:00 PM [facility] Outpatient Attender: Renee Calvillo 06/13/2021 12:23:00 PM [facility] Outpatient Attender: Renee Calvillo 06/07/2021 01:15:00 PM [facility] Outpatient Attender: Octavia GIPSON Main Office 05/26/2021 11:00:00 AM EDT MEDENT ([facility] Outpatient Attender: Renee Calvillo 05/23/2021 02:04:00 PM [facility] Outpatient Attender: CHANNING JIMENES NP 05/19/2021 11: 20:00 AM [facility] Outpatient Attender: ELDER GIPSON-C Madeline/Va/Josué/Christopher gupta 05/18/2021 02:15:00 PM EDT MEDENT ([facility], ) Outpatient Attender: Renee Calvillo 05/16/2021 01:45:00 PM [facility] Outpatient Attender: Renee Calvillo 05/09/2021 12:30:00 PM [facility] Outpatient Attender: Renee Calvillo 05/02/2021 11:03:00 AM [facility] Outpatient Attender: Meaghan AVITIA Main office [facility] 04/28/2021 12:30:00 PM EDT MEDENT ([facility], ) Outpatient Attender: CHANNING JIMENES NP 04/25/2021 03: 20:00 PM [facility] Outpatient Attender: Renee Calvillo 04/24/2021 10:45:00 AM [facility] Outpatient Attender: Renee Calvillo 04/17/2021 02:00:00 PM [facility] Outpatient Attender: CHANNING JIMENES NP 04/07/2021 11: 20:00 AM [facility] Outpatient Attender: Christian Hand 04/04/2021 11:00:00 AM [facility] Outpatient Attender: Christian Hand 03/29/2021 11:00:00 AM [facility] Outpatient Attender: CHANNING JIMENES NP 03/15/2021 11: 00:00 AM EDT [facility] Outpatient Attender: Christian Yazan 03/14/2021 11:00:00 AM [facility] Outpatient Attender: Shay AVITIA [facility] 03/13/2021 03:40:00 PM EDT MEDENT ([facility]) Outpatient Attender: Octavia Jackson MANAGER MARKET INTELLIGENCE Main Office 03/13/2021 12:15:00 PM EDT [facility] Attender: Christian Yazan 03/07/2021 10:57:00 AM [facility] Outpatient Attender: Christian Yazan 02/28/2021 11:00:00 AM [facility] Outpatient Attender: Erica Santosroma MDReferrer: TOÑA RIKA-MARYCARMEN DO [id number] 02/23/2021 06:55:09 PM EDT [...] 09:33:33 AM EDT [facility]ender: Christian Hand 02/21/2021 11:00:00 AM [facility] Outpatient Attender: Erica Paez MDReferrer: TOÑA JENKINS DO [id number] 02/16/2021 10:53:33 AM EDT [facility] Attender: Christian HandAttender: CHRISTIAN HAND 02/14/2021 11:00:00 AM [facility] Outpatient Attender: CHANNING JIMENES NP 02/08/2021 11: 00:00 AM [facility] Outpatient Attender: Christian HandAttender: CHRISTIAN HAND 02/07/2021 11:00:00 AM [facility] Outpatient Attender: ESTEBAN NAIDU MD Main Office 02/03/2021 11:00:00 AM EDT [facility] ([facility] Outpatient Attender: Christian HandAttender: CHRISTIAN HAND 01/31/2021 11:00:00 AM [facility] Office Visit Attender: Meaghan AVITIA Main office - [facility] 01/25/2021 01:00:00 PM EDT MEDENT ([facility]) Outpatient Attender: Christian BrownAttender: CHRISTIAN HAND 01/24/2021 11:00:00 AM [facility] Outpatient Attender: CHANNING JIMENES HIGHBALLER 01/18/2021 11: 20:00 AM [facility] Outpatient Attender: Christian HandAttender: CHRISTIAN HAND 01/17/2021 11:00:00 AM [facility] Outpatient Attender: Christian BrownAttender: CHRISTIAN HAND 01/10/2021 11:00:00 AM [facility] Outpatient Attender: Christian BrownAttender: CHRISTIAN HAND 01/03/2021 11:00:00 AM [facility] Outpatient Attender: CHANNING JIMENES NP 12/30/2020 11: 20:00 AM [facility] Outpatient Attender: Christian HandAttender: CHRISTIAN HAND 12/19/2020 10:59:00 AM [facility] Outpatient Attender: Christian HandAttender: CHRISTIAN HAND 12/12/2020 11:00:00 AM [facility] Outpatient Attender: CHANNING JIMENES HIGHBALLER 12/07/2020 11: 20:00 AM [facility] Outpatient Attender: Christian HandAttender: CHRISTIAN HAND 12/05/2020 11:00:00 AM [facility] Outpatient Attender: Christian HandAttender: CHRISTIAN HAND 11/29/2020 01:30:00 PM [facility] Outpatient Attender: Christian BrownAttender: CHRISTIAN HAND 11/28/2020 01:00:00 PM [facility] Outpatient Attender: Christian BrownAttender: CHRISTIAN HAND 11/21/2020 11:00:00 AM [facility] Outpatient Attender: CHANNING JIMENES NP 11/16/2020 11: 40:00 AM [facility] Outpatient Attender: Christian HandAttender: CHRISTIAN HAND 11/14/2020 10:58:00 AM [facility] Outpatient Attender: Christian HandAttender: CHRISTIAN HAND 11/09/2020 11:00:00 AM [facility] Outpatient Attender: Christian HandAttender: CHRISTIAN HAND 10/31/2020 11:00:00 AM [facility] Outpatient Attender: CHANNING JIMENES NP 10/26/2020 11: 40:00 AM [facility] Office Visit Attender: Meaghan AVITIA Main office - [facility] 10/25/2020 12:30:00 PM EST MEDENT ([facility] ) Outpatient Attender: Christian HandAttender: CHRISTIAN HAND 10/24/2020 11:00:00 AM [facility] Outpatient Attender: Christian HandAttender: CHRISTIAN HAND 10/17/2020 10:59:00 AM [facility] Outpatient Attender: Christian HandAttender: CHRISTIAN HAND 10/11/2020 08:14:00 AM [facility] Outpatient Attender: CHANNING JIMENES NP 10/05/2020 01: 40:00 PM [facility] Outpatient Attender: Christian HandAttender: CHRISTIAN HAND 09/26/2020 11:00:00 AM [facility] Outpatient [facility] 09/21/2020 12:00:00 AM EST eCW1 ([facility]) Outpatient Attender: Christian HandAttender: CHRISTIAN HAND 09/19/2020 11:00:00 AM [facility] Outpatient Attender: CHANNING JIMENES NP 09/13/2020 10: 40:00 AM [facility] Outpatient Attender: Shay AVITIA [facility] 09/12/2020 03:00:00 PM EST MEDENT ([facility]) Outpatient Attender: Christian HandAttender: CHRISTIAN HAND 09/12/2020 02:00:00 PM [facility] Outpatient Attender: Christian HandAttender: CHRISTIAN HAND 09/05/2020 10:57:00 AM [facility] Outpatient Attender: Christian HandAttender: CHRISTIAN HAND 08/29/2020 11:00:00 AM [facility] Outpatient Attender: CHANNING JIMENES NP 08/24/2020 01: 00:00 PM [facility] Outpatient Attender: CHRISTIAN HADN 08/22/2020 10:54:00 AM [facility] Outpatient Attender: CHRISTIAN HAND 08/15/2020 11:00:00 AM [facility] Outpatient Attender: CHANNING JIMENES HIGHBALLER 08/10/2020 11: 20:00 AM [facility] Outpatient Attender: Christian HandAttender: CHRISTIAN HAND 08/08/2020 11:00:00 AM [facility] Outpatient Attender: Christian BrownAttender: CHRISTIAN HAND 08/01/2020 11:00:00 AM [facility] Outpatient Attender: CHANNING JIMENES HIGHBALLER 07/27/2020 02: 00:00 PM [facility] Outpatient Attender: Christian BrownAttender: CHRISTIAN HAND 07/18/2020 01:00:00 PM [facility] Outpatient Attender: CHANNING JIMENES HIGHBALLER 07/13/2020 01: 20:00 PM [facility] Outpatient Attender: Christian HandAttender: CHRISTIAN HAND 07/11/2020 11:00:00 AM [facility] Outpatient Attender: Christian BrownAttender: CHRISTIAN HAND 07/06/2020 04:00:00 PM [facility] Outpatient Attender: Christian HandAttender: CHRISTIAN HAND 06/27/2020 01:00:00 PM [facility] Outpatient Attender: CHANNING JIMENES HIGHBALLER 06/22/2020 01: 00:00 PM [facility] Outpatient Attender: Christian HandAttender: CHRISTIAN HAND 2020 01:00:00 PM [facility] Outpatient Attender: Christian BrownAttender: CHRISTIAN HAND 06/13/2020 01:00:00 PM [facility] Outpatient Attender: Christian BrownAttender: CHRISTIAN HAND 06/06/2020 01:00:00 PM [facility] Outpatient Attender: Christian BrownAttender: CHRISTIAN HAND 05/30/2020 04:00:00 PM [facility] Outpatient Attender: CHANNING JIMENES HIGHBALLER 05/27/2020 11: 40:00 AM [facility] Outpatient Attender: Christian BrownAttender: CHRISTIAN HAND 05/23/2020 02:00:00 PM [facility] Outpatient Attender: Christian HandAttender: CHRISTIAN HAND 05/16/2020 02:00:00 PM [facility] Outpatient Attender: Christian BrownAttender: CHRISTIAN HAND 05/02/2020 02:00:00 PM [facility] Outpatient Attender: CHANNING JIMENES HIGHBALLER 04/27/2020 12: 59:00 PM [facility] Outpatient Attender: [place] BrownAttender: CHRISTIAN HAND 04/20/2020 03:00:00 PM [facility] Outpatient Attender: Christian BrownAttender: CHRISTINA HAND 04/13/2020 03:00:00 PM [facility] Outpatient Attender: Christian BrownAttender: CHRISTIAN HAND 04/06/2020 03:00:00 PM [facility] Outpatient Attender: CHANNING JIMENES HIGHBALLER 03/30/2020 01: 00:00 PM [facility] Outpatient Attender: Christian BrownAttender: CHRISTIAN HAND 03/23/2020 01:00:00 PM [facility] Outpatient Attender: Christian HandAttender: CHRISTIAN HAND 03/15/2020 11:00:00 AM [facility] Outpatient Attender: Christian BrownAttender: CHRISTIAN HAND 03/09/2020 01:00:00 PM [facility] Outpatient Attender: CHANNING JIMENES NP 03/02/2020 01: 40:00 PM [facility] Outpatient Attender: Christian YazanAttender: CHRISTIAN HAND 03/01/2020 10:57:00 AM [facility] Outpatient Attender: CHRISTIAN HAND 02/18/2020 04:00:00 PM [facility] Outpatient Attender: ERIC MERRILLCAttenlloyd: JF HARDY 02/10/2020 09:45:00 AM [facility] Immunizations Vaccine Date Status Description Data Source(s) COVID-19 VACCINE Pfizer 07/23/2021 12:00:00 AM EDT completed [facility] Vaccine Series Complete: YESThis Data wa s Submitted to [facility]. COVID-19 VACC, MRNA([facility])/PF 07/23/2021 12:00:00 AM EDT completed [facility] COVID-19 VACCINE Pfizer 01/01/2021 12:00:00 AM EST completed [facility] Vaccine Series Complete: YESThis Data wa s Submitted to [facility]. COVID-19 VACCINE Pfizer 12/11/2020 12:00:00 AM EST completed [facility] Vaccine Series Complete: NOThis Data was Submitted to [facility]. VARICELLA-ZOSTER VIRUS GLYCOPROTEIN E,REC/AS01B ADJUVA NT/PF 09/16/2020 [...] 23 09/14/2021 12:00:00 AM EST active [facility] ([facility]) atorvastatin 20 MG Oral Tablet ATORVASTATIN CALCIUM [...] 12:00:00 AM EDT ORAL active MEDENT ([facility]) 50 mg 04/26/2021 [...] NEEDED FOR ITCHING AND SNEEZING SOLD: 03/09/2021 [facility] 5 mg 02/04/2021 12:00:00 AM [...] active MEDENT ([facility]) 20 mg 02/03/2021 12:00:00 [...] 12/15/2020 12:00:00 AM EST ORAL active MEDENT ([facility]) 2 mg 12/08/2020 12:00:00 AM EST [...] MEDENT ( [facility]) 160-4.5 mcg/actuation 11/26/2020 12:00:00 [...] 09/12/2020 12:00:00 AM EST activ e MEDENT ([facility]) cetirizine hydrochloride 10 MG Oral Tablet Cetirizine HCL 09/12/2020 12:00:00 AM EST ORAL active MEDENT ([facility]) 25 mcg 09/08/2020 12:00:00 AM EST tablet [...] 1 2:00:00 AM EST active MEDENT ( [facility]) 2 mg 08/27/2020 12:00:00 AM EDT [...] to harmon Policy Harmon Plan Information PROCLAIM [facility] [id number] SP [id number] Ghi FHP-(DO Not Use) Medigap Part B [id number] Self 0 [id number] Ghi FHP-(DO Not Use) Medigap Part B [id number] Self 0 [id number] Ghi FHP-(DO Not Use) Medigap Part B [id number] Self 0 [id number] Ghi FHP-(DO Not Use) Medigap Part B [id number] Self 0 [id number] MEDICARE [id number] Paulina [id number] [id number] MEDICARE - [place] [id number] S [id number] MEDICARE A [id number] Self [id number] [id number] UHC UNITED MEDICARE COMPLETE G [id number] Self [id number] MEDICARE [id number] xxxxxxxxxxx [id number] MEDICARE [id number] SP [id number] [id number] MEDICARE [id number] SP [id number] A [place] MEDICARE DIVISION [id number] S [id number] MEDICARE BLUE PPO 306 [id number] SP [id number] Blue Shield MCR Advantage Medigap Part B [id number] Self V [id number] Blue Shield MCR Advantage Medigap Part B [id number] Self V [id number] Blue Shield MCR Advantage Medigap Part B [id number] Self V [id number] Blue Shield MCR Advantage Medigap Part B [id number] Self V [id number] [employer] Medicare Commercial [id number] Self [id number] MEDICARE COMPLETE [id number] SP [id number] [facility] MEDICARE [id number] Paulina [id number] [facility] Medicare Solutions F [id number] SELF [id number] AARP U [id number] Self [id number] Aarp Medigap Part B [id number] Self [id number] Aarp Medigap Part B [id number] Self [id number] Aarp Secondary [id number] 1 Medicare Primary [id number] 20125 [id number] M99 AARP HEALTH CARE OPTIONS [id number] SP [id number] [facility] [id number] xxxxxxxxxxx [id number] [facility] [id number] Paulina [id number] Medicare [place] Medicare Primary [id number] Self [id number] Aarp Healthcare Options [facility] Part B [id number] Self [id number] Medicare Dme Supplies [facility] Part B [id number] Self 0 [id number] Medicare [place] Medicare Primary [id number] Self [id number] [employer] Healthcare Options [facility] Part B [id number] Self [id number] Medicare Dme Supplies [facility] [facility] Part B [id number] Self 0 [id number] Medicare [place] Medicare Primary [id number] [id number] Self 0 [id number] [employer] [id number] 2..[id number]. 0 Self [id number] Medicare - NGS Medicare Primary [id number] [id number] Self 0 [id number] Medicare Blue Ppo Commercial [id number] 2..1.113 [id number] Self [id number] Medicare - NGS Medicare Primary [id number] [id number] Self 0 [id number] [facility] Sport/Life Plus Commercial [id number] [id number] Self [id number] [employer] Options [facility] Part B [id number] Self 3 [id number] Medicare Dme Supplies [facility] Part B [id number] Self 0 [id number] [place] Medicare Primary [id number] [id number] Self 0 [id number] [facility] Part B [id number] [id number] Self 3 [id number] Medicare Dme Supplies [facility] Part B [id number] [id number] Self 0 [id number] Medicare [place] Medicare Primary [id number] [id number] Self 0 [id number] [facility] Medicare Commercial [id number] [id number] [facility] F [id number] SELF [id number] Medicare C [id number] SELF [id number] A MEDICARE COMPLETE [id number] SP [id number] [facility] Medicare Commercial [id number] Self [id number] [facility] Medicare Commercial ..[id number] Self MEDICARE BLUE PPO 306 [id number] SP [id number] MEDICARE COMPLETE [id number] SP [id number] Sliding Fee Scale P [id number] S [id number] [facility] B [id number] S [id number] [facility] EMPLOYEE [id number] SP [id number] VALUE OPTIONS (FHP) [id number] SP [id number] MEDICARE [id number] SP [id number] MEDICARE BLUE PPO 306 [id number] SP [id number] [employer]ARP HE[employer] C[employer] OPTIONS [id number] SP [id number] AARP HE[employer] CARE OPTIONS [id number] S [id number] [email or web address] MEDICARE DIVISION [id number] S [id number] [place]ICARE - [place] [id number] S [id number] AARP HEALTH CARE OPTIONS [id number] S [id number] [place] MEDICARE DIVISION [id number] S [id number] MEDICARE [place] [id number] S [id number] SELF PAY ONLY [facility] PLUS [id number] SP [id number] MEDICARE [id number] S [id number] AARP O [id number] S [id number] Medicare Blue Ppo Commercial [id number] .[id number] Self [id number] [employer] [employer] Part B [id number] ..[id number] 0555.0 Self [id number] Medicare [place]/[facility] Medicare Primary [id number] ..[id number] Self [id number] Medicare Blue Ppo Commercial [id number] ..[id number] Self [id number] [employer] Med[employer]ap Part B [id number] 0555.0 Self [id number] Medicare [place] Medicare Primary [id number] ..[id number] Self [id number] [facility] .[id number] Commercial Insurance Co. [id number] BCBS .[id number] Blue Cross/Bl ue Shield .[id number] [facility] HEALTH CARE OPTIONS .[id number] Commercial Insurance Co. .[id number] Medicare [id number] Medicare Part B [id number] [facility]TH PLUS [id number] SP [id number] MEDICARE [id number] SP [id number] A Medicare Blue Ppo Commercial [id number] .[id number] Self [id number] [place] [id number] 0555.0 Self [id number] [employer] Medigap Part B [id number] 0555.0 Self [id number] Medicare [place]/[facility] Medicare Primary [id number] Self [id number] MEDICARE C [id number] S [id number] A [facility] Medigap Part B [id number] 0555.0 Self [id number] Problems, Conditions, and Diagnoses Code Display Name Description Problem Type Effective Dates Data Source(s) G47.00 Insomnia, unspecified INSOMNIA, UNSPECIFIED Diagnosis 07/27/2021 11:20:00 AM [facility] F43.29 Adjustment disorder with other symptoms ADJUSTMENT DISORDER WITH OTHER SYMPTOMS Diagnosis 07/27/2021 11:20:00 AM [facility] F33.0 Major depressive disorder, recurrent, mi ld MAJOR DEPRESSIVE DISORDER, RECURRENT, MILD Diagnosis 07/27/2021 11:20:00 AM [facility] F41.1 Generalized anxiety disorder GENERALIZED ANXIETY DISOR LLOYD Diagnosis 07/27/2021 11:20:00 AM [facility] F70 Mild intellectual disabilities MILD INTELLECTUAL DISAB ILITIES Diagnosis 07/25/2021 03:45:00 PM [facility] F43.21 Adjustment disorder with depressed mood ADJUSTMENT DISORDER WITH DEPRESSED MOOD Diagnosis 07/25/2021 03:45:00 PM [facility] F33.1 Major depressive disorder, recurrent, mo derate MAJOR DEPRESSIVE DISORDER, RECURRENT, MODERATE Diagnosis 06/14/2021 01:00:00 PM [facility] Surgeries/Procedures Procedure Description Date Indications Data Source(s) OFFICE OUTPATIENT VISIT 15 MINUTES 09/08/2021 12:00:00 AM EST [facility] ([facility], ) OFFICE OUTPATIENT VISIT 15 MINUTES 08/10/2021 12:00:00 AM EDT [facility] ([facility]) OFFICE OUTPATIENT VISIT 25 MINUTES 07/26/2021 12:00:00 AM EDT [facility] ([facility], ) DESTRUCTION BENIGN LESIONS UP TO 14 05/26/2021 12:00:0 0 AM EDT [facility] ([facility]) OFFICE OUTPATIENT VISIT 25 MINUTES 05/26/2021 12:00:00 AM EDT [facility] ([facility]) OFFICE OUTPATIENT VISIT 15 MINUTES 05/18/2021 12:00:00 AM EDT [facility] ([facility], ) OFFICE OUTPATIENT VISIT 25 MINUTES 04/28/2021 12:00:00 AM EDT [facility] ([facility], ) OFFICE OUTPATIENT VISIT 25 MINUTES 03/13/2021 12:00:00 AM EDT [facility] ([facility]) OFFICE OUTPATIENT VISIT 25 MINUTES 03/13/2021 12:00:00 AM EDT [facility] ([facility]) BRNCDILAT RSPSE SPMTRY PRE&POST-BRNCDILAT ADMN 021 12:00:00 AM EDT [facility] ([facility]) PHYSICIAN TELEPHONE EVALUATION 21-30 MIN 01/25/2021 12 :00:00 AM EDT [facility] ([facility]) Results ID Date Data Source [id number] 08/15/2021 09:58:00 AM EDT [facility] ([facility]) Name Value Range Interpretation Code Description Data Phuong rce(s) Supporting Document(s) Ast/Sgot 62 U/L 7-37 Above high normal [facility] ([facility]) Alkaline Phosphatase 72 U/L 45-117 Normal (applies to non-num nkechi results) [facility] ([facility]) Alt/SGPT 90 U/L 12-78 Above high normal [facility] ([facility]) Bilirubin,Direct 0.2 mg/dL 0.0-0.2 Normal (applies to non-numeric results) [facility] ([facility]) Bilirubin,Total 0.6 mg/dL 0.2-1.0 Normal (applies to non-numeric results) [facility] ([facility]) Albumin 3.8 GM/DL 3.2-5.2 Normal (applies to non-numeric resul ts) [facility] ([facility]) Total Protein 7.9 GM/DL 6.4-8.2 Normal (applies to non-numeric re sults) [facility] ([facility]) Albumin/Globulin Ratio 0.9 1.2-2.2 Below low normal [facility] ([facility]) ID Date Data Source [id number] 08/15/2021 09:58:00 AM EDT [facility] ([facility]) Name Value Range Interpretation Code Description Data Phuong rce(s) Supporting Document(s) Glucose, Fasting 128 mg/dL 70-100 Above high normal M [facility] ([facility]) Creatinine For GFR 0.93 mg/dL 0.55-1.30 Normal (applies to non -numeric results) [facility] ([facility]) Blood Urea Nitrogen 13 mg/dL 7-18 Normal (applies to non-nume sophie results) [facility] ([facility]) Glomerular Filtration Rate Laboratory test result Normal (applies to non- numeric results) [facility] ([facility]) <content>Units are mL/min/1.73 m2</content>
<content></content>
<content>Chronic Kidney Disease Staging per NKF:</content>
<content></content>
<content>Stage I & II GFR >=60 Normal to Mildly Decreased</content>
<content>Stage III GFR 30- 59 Moderately Decreased</content>
<content>Stage IV GFR 15-29 Severely Decreased</content>
<content>Stage V GFR <15 Very Little GFR Left</content>
<content>ESRD GFR <15 on FELT CUTTER</content>
<content></content> Sodium Level 141 meq/L 136-145 Normal (applies to non-numeric res ults) [facility] ([facility]) Potassium Serum 3.9 meq/L 3.5-5.1 Normal (applies to non-numeric results) [facility] ([facility]) Chloride Level 107 meq/L 98-107 Normal (applies to non-numeric r esults) [facility] ([facility]) Anion Gap 7 meq/L 8-16 Below low normal [facility] ( [facility]) Calcium Level 8.9 mg/dL 8.5-10.1 Normal (applies to non-numeric re sults) [facility] ([facility]) Carbon Dioxide Level 27 meq/L 21-32 Normal (applies to non-num nkechi results) [facility] ([facility]) ID Date Data Source [id number] 08/15/2021 09:58:00 AM EDT [facility] ([facility]) Name Value Range Interpretation Code Description Data Phuong rce(s) Supporting Document(s) Free T4 1.05 ng/dL 0.76-1.46 Normal (applies to non-numeric resul ts) [facility] ([facility]) Thyroid Stimulating Hormone 1.290 uIU/ML 0.358-3.740 Norm al (applies to non- numeric results) [facility] ([facility]) ID Date Data Source [id number] 08/15/2021 09:58:00 AM EDT [facility] ([facility]) Name Value Range Interpretation Code Description Data Phuong rce(s) Supporting Document(s) White Blood Count 8.9 10 4.0-10.0 Normal (applies to non-numeri c results) [facility] ([facility]) Hemoglobin 15.1 g/dL 12.0-15.5 Normal (applies to non-numeric resul ts) [facility] ([facility]) Red Blood Count 5.29 10 4.00-5.40 Normal (applies to non-numeric results) [facility] ([facility]) Mean Corpuscular Volume 87.1 fl 80.0-96.0 Normal ( applies to non-numeric results) [facility] ([facility]) Hematocrit 46.1 % 36.0-47.0 Normal (applies to non-numeric resul ts) [facility] ([facility]) Mean Corpuscular Hemoglobin 28.5 pg 27.0-33.0 Norm al (applies to non-numeric results) [facility] ([facility]) Mean Corpuscular HGB Conc 32.8 g/dL 32.0-36.5 Normal (applies to non-numeric results) [facility] ([facility]) Red Cell Distribution Width 13.3 % 11.5-14.5 Norm al (applies to non-numeric results) [facility] ([facility]) Platelet Count, Automated 207 10 150-450 Normal (applies to non-numeric results) [facility] ([facility]) Lymph % 14.3 % 24.0-44.0 Below low normal [facility] ( [facility]) Newberry % 8.1 % 2.0-8.0 Above high normal [facility] ([facility]) Neutrophils % 72.1 % 36.0-66.0 Above high normal [facility] ([facility]) Baso % 1.1 % 0.0-1.0 Above high normal [facility] ([facility]) Eos % 3.7 % 0.0-3.0 Above high normal [facility] ([facility]) Nucleated Red Blood Cell % 0.0 % 0-0 Normal (applies to n on-numeric results) [facility] ([facility]) Immature Granulocyte % 0.7 % 0-3.0 Normal (applies to non-n umeric results) [facility] ([facility]) Lymph # 1.3 10 1.5-5.0 Below low normal [facility] ( [facility]) Neutrophils # 6.4 10 1.5-8.5 Normal (applies to non-numeric re sults) [facility] ([facility]) Baso # 0.1 10 0.0-0.2 Normal (applies to non-numeric resul ts) [facility] ([facility]) Eos # 0.3 10 0.0-0.5 Normal (applies to non-numeric resul ts) [facility] ([facility]) Newberry # 0.7 10 0.0-0.8 Normal (applies to non-numeric resul ts) [facility] ([facility]) ID Date Data Source [id number] 03/17/2021 08:48:00 [facility] Name Value Range Interpretation Code Description Data Phuong rce(s) Supporting Document(s) Cholesterol Level 132 mg/dL Normal (applies to non-numeri c results) [facility] Triglycerides Level 68 mg/dL Normal (applies to non-nume sophie results) [facility] HDL Cholesterol 49 mg/dL Normal (applies to non-numeric results) [facility] ([facility]) LDL Cholesterol 69 mg/dL Normal (applies to non-numeric results) [facility] ([facility]) Non-HDL-C 83 mg/dL Normal (applies to non-numeric resul ts) [facility] ([facility]) Cholesterol Risk Ratio 2.693 Normal (applies to non-n umeric results) [facility]) ID Date Data Source [id number] 03/17/2021 08:48:00 AM EDT [facility] Name Value Range Interpretation Code Description Data Phuong rce(s) Supporting Document(s) Folate Laboratory test result Normal (applies to non-n umeric results) [facility] ([facility]) FOLATE NORMAL RANGE NORMAL GREATER THAN 5.4 NG/ML INDETERMINATE 3.4-5.4 NG/ML DEFICIENT LESS THAN 3.4 NG/ML Vitamin B12 Level 1700 pg/mL Normal (applies to non-numeri c results) [facility] ([facility]) VITAMIN B12 NORMAL RANGE NORMAL 247 - 911 PG/ML INDETERMINATE 211 - 246 PG/ML DEFICIENT LESS THAN 211 PG/ML ID Date Data Source [id number] 03/17/2021 08:48:[address] [facility]) Name Value Range Interpretation Code Description Data Phuong rce(s) Supporting Document(s) Calcidiol [Mass/volume] in Serum or Plasma 51.2 ng/mL 30.0- 100.0 Normal (applies to non-numeric results) [facility] ([facility]) ID Date Data Source [id number] 03/17/2021 08:48:[address] [facility]) Name Value Range Interpretation Code Description Data Phuong rce(s) Supporting Document(s) Thyroid Stimulating Hormone 1.560 uIU/ML 0.358-3.740 Norm al (applies to non- numeric results) [facility] ([facility]) Free T4 1.27 ng/dL 0.76-1.46 Normal (applies to non-numeric resul ts) [facility] ([facility]) ID Date Data Source [id number] 03/17/2021 08:48:[address] [facility]) Name Value Range Interpretation Code Description Data Phuong rce(s) Supporting Document(s) Blood Urea Nitrogen 17 mg/dL 7-18 Normal (applies to non-nume sophie results) [facility] ([facility]) Glucose, Fasting 108 mg/dL 70-100 Above high normal M [facility] ([facility]) Creatinine For GFR 0.86 mg/dL 0.55-1.30 Normal (applies to non -numeric results) [facility] ([facility]) Glomerular Filtration Rate Laboratory test result Normal (applies to non- numeric results) [facility] ([facility]) <content>Units are mL/min/1.73 m2</content>
<content></content>
<content>Chronic Kidney Disease Staging per NKF:</content>
<content></content>
<content>Stage I & II GFR >=60 Normal to Mildly Decreased</content>
<content>Stage III GFR 30- 59 Moderately Decreased</content>
<content>Stage IV GFR 15-29 Severely Decreased</content>
<content>Stage V GFR <15 Very Little GFR Left</content>
<content>ESRD GFR <15 on FELT CUTTER</content>
<content></content> Sodium Level 142 meq/L 136-145 Normal (applies to non-numeric res ults) [facility] ([facility]) Potassium Serum 3.7 meq/L 3.5-5.1 Normal (applies to non-numeric results) [facility] ([facility]) Anion Gap 5 meq/L 8-16 Below low [facility] Chloride Level 106 meq/L 98-107 Normal (applies to non-numeric r esults) [facility] ([facility]) Carbon Dioxide Level 31 meq/L 21-32 Normal (applies to non-num nkechi results) [facility] ([facility]) Calcium Level 8.9 mg/dL 8.5-10.1 Normal (applies to non-numeric re sults) [facility] ([facility]) Ast/Sgot 46 U/L 7-37 Above high normal [facility] Alt/SGPT 86 U/L 12-78 Above high normal [facility] Alkaline Phosphatase 74 U/L 45-117 Normal (applies to non-num nkechi results) [facility] ([facility]) Albumin 3.7 GM/DL 3.2-5.2 Normal (applies to non-numeric resul ts) [facility] ([facility]) Total Protein 7.3 GM/DL 6.4-8.2 Normal (applies to non-numeric re sults) [facility] ([facility]) Bilirubin,Total 0.5 mg/dL 0.2-1.0 Normal (applies to non-numeric results) [facility] ([facility]) Albumin/Globulin Ratio 1.0 1.2-2.2 Below low normal [facility] ([facility]) ID Date Data Source [id number] 03/17/2021 08:48:00 AM EDT [facility] ([facility]) Name Value Range Interpretation Code Description Data Phuong rce(s) Supporting Document(s) White Blood Count 6.8 10 4.0-10.0 Normal (applies to non-numeri c results) [facility] ([facility]) Hemoglobin 15.0 g/dL 12.0-15.5 Normal (applies to non-numeric resul ts) [facility] ([facility]) Red Blood Count 5.25 10 4.00-5.40 Normal (applies to non-numeric results) [facility] ([facility]) Hematocrit 46.9 % 36.0-47.0 Normal (applies to non-numeric resul ts) [facility] ([facility]) Mean Corpuscular Volume 89.3 fl 80.0-96.0 Normal ( applies to non-numeric results) [facility] ([facility]) Mean Corpuscular HGB Conc 32.0 g/dL 32.0-36.5 Normal (applies to non-numeric results) [facility] ([facility]) Mean Corpuscular Hemoglobin 28.6 pg 27.0-33.0 Norm al (applies to non-numeric results) [facility] ([facility]) Platelet Count, Automated 180 10 150-450 Normal (applies to non-numeric results) [facility] ([facility]) Red Cell Distribution Width 13.3 % 11.5-14.5 Norm al (applies to non-numeric results) [facility] ([facility]) Neutrophils % 65.4 % 36.0-66.0 Normal (applies to non-numeric re sults) [facility] ([facility]) Newberry % 9.8 % 2.0-8.0 Above high normal [facility] ([facility]) Lymph % 19.8 % 24.0-44.0 Below low normal [facility] ( [facility]) Eos % 3.7 % 0.0-3.0 Above high normal [facility] ([facility]) Baso % 0.9 % 0.0-1.0 Normal (applies to non-numeric resul ts) [facility] ([facility]) Immature Granulocyte % 0.4 % 0-3.0 Normal (applies to non-n umeric results) [facility] ([facility]) Nucleated Red Blood Cell % 0.0 % 0-0 Normal (applies to n on-numeric results) [facility] ([facility]) Neutrophils # 4.5 10 1.5-8.5 Normal (applies to non-numeric re sults) [facility] ([facility]) Lymph # 1.4 10 1.5-5.0 Below low normal [facility] ( [facility]) Newberry # 0.7 10 0.0-0.8 Normal (applies to non-numeric resul ts) [facility] ([facility]) Eos # 0.3 10 0.0-0.5 Normal (applies to non-numeric resul ts) [facility] ([facility]) Baso # 0.1 10 0.0-0.2 Normal (applies to non-numeric resul ts) [facility] ([facility]) ID Date Data Source [id number] 10/29/2020 12:00:00 AM EST [facility] Name Value Range Interpretation Code Description Data Phuong rce(s) Supporting Document(s) SARS-CoV-2 (COVID-19) RNA [Presence] in Respiratory specimen by CHANTE with probe detection [facility] This lab was ordered by [facility] [employer] [place] and reported by [employer]. ID Date Data Source [id number] 10/06/2020 12:00:00 AM EST [facility] Name Value Range Interpretation Code Description Data Phuong rce(s) Supporting Document(s) 2019-nCoV RNA XXX CHANTE+probe-Imp [facility] This lab was ordered by [facility] [employer] [place] and reported by [employer] ID Date Data Source [id number] 09/14/2020 10:09:00 AM EST [facility] ([facility]) Name Value Range Interpretation Code Description Data Phuong rce(s) Supporting Document(s) Cholesterol Level 155 mg/dL Normal (applies to non-numeri c results) [facility] Triglycerides Level 108 mg/dL Normal (applies to non-nume sophie results) [facility] Non-HDL-C 108 mg/dL Normal (applies to non-numeric resul ts) [facility] LDL Cholesterol 86 mg/dL Normal (applies to non-numeric results) [facility] HDL Cholesterol 47 mg/dL Normal (applies to non-numeric results) [facility] ([facility]) Cholesterol Risk Ratio 3.297 Normal (applies to non-n umeric results) [facility] ([facility]) ID Date Data Source [id number] 09/14/2020 10:09:00 AM EST [facility] ([facility]) Name Value Range Interpretation Code Description Data Phuong rce(s) Supporting Document(s) Calcidiol [Mass/volume] in Serum or Plasma 31.7 ng/mL 30.0- 100.0 Normal (applies to non-numeric results) [facility] ID Date Data Source [id number] 09/14/2020 10:09:00 AM EST [facility] ([facility]) Name Value Range Interpretation Code Description Data Phuong rce(s) Supporting Document(s) Glucose, Fasting 114 mg/dL 70-100 Above high normal M [facility] ([facility]) Creatinine For GFR 0.78 mg/dL 0.55-1.30 Normal (applies to non -numeric results) [facility] Blood Urea Nitrogen 18 mg/dL 7-18 Normal (applies to non-nume sophie results) [facility] ([facility]) Glomerular Filtration Rate Laboratory test result Normal (applies to non- numeric results) [facility] ([facility]) <content>Units are mL/min/1.73 m2</content>
<content></content>
<content>Chronic Kidney Disease Staging per NKF:</content>
<content></content>
<content>Stage I & II GFR >=60 Normal to Mildly Decreased</content>
<content>Stage III GFR 30- 59 Moderately Decreased</content>
<content>Stage IV GFR 15-29 Severely Decreased</content>
<content>Stage V GFR <15 Very Little GFR Left</content>
<content>ESRD GFR <15 on FELT CUTTER</content>
<content></content> Sodium Level 143 meq/L 136-145 Normal (applies to non-numeric res ults) [facility] ([facility]) Carbon Dioxide Level 29 meq/L 21-32 Normal (applies to non-num nkechi results) [facility] ([facility]) Potassium Serum 4.1 meq/L 3.5-5.1 Normal (applies to non-numeric results) [facility] ([facility]) Chloride Level 110 meq/L 98-107 Above high normal [facility] ([facility]) Anion Gap 4 meq/L 8-16 Below low [facility] Calcium Level 9.1 mg/dL 8.5-10.1 Normal (applies to non-numeric re sults) [facility] ([facility]) Alt/SGPT 83 U/L 12-78 Above high normal [facility] Ast/Sgot 46 U/L 7-37 Above high normal [facility] Alkaline Phosphatase 70 U/L 45-117 Normal (applies to non-num nkechi results) [facility] ([facility]) Total Protein 7.7 GM/DL 6.4-8.2 Normal (applies to non-numeric re sults) [facility] ([facility]) Bilirubin,Total 0.5 mg/dL 0.2-1.0 Normal (applies to non-numeric results) [facility] ([facility]) Albumin 3.7 GM/DL 3.2-5.2 Normal (applies to non-numeric resul ts) [facility] ([facility]) Albumin/Globulin Ratio 0.9 1.2-2.2 Below low normal [facility] ([facility]) ID Date Data Source [id number] 09/14/2020 10:09:00 AM EST [facility] ([facility]) Name Value Range Interpretation Code Description Data Phuong rce(s) Supporting Document(s) White Blood Count 7.1 10 4.0-10.0 Normal (applies to non-numeri c results) [facility] ([facility]) Hemoglobin 14.9 g/dL 12.0-15.5 Normal (applies to non-numeric resul ts) [facility] [facility] Red Blood Count 5.40 10 4.00-5.40 Normal (applies to non-numeric results) [facility] ([facility]) Hematocrit 46.8 % 36.0-47.0 Normal (applies to non-numeric resul ts) [facility] ([facility]) Mean Corpuscular Volume 86.7 fl 80.0-96.0 Normal ( applies to non-numeric results) [facility] ([facility]) Mean Corpuscular Hemoglobin 27.6 pg 27.0-33.0 Norm al (applies to non-numeric results) [facility] ([facility]) Mean Corpuscular HGB Conc 31.8 g/dL 32.0-36.5 Below low normal [facility] ([facility]) Red Cell Distribution Width 13.5 % 11.5-14.5 Norm al (applies to non-numeric results) [facility] ([facility]) Neutrophils % 68.5 % 36.0-66.0 Above high normal MEDE NT ([facility]) Lymph % 18.3 % 24.0-44.0 Below low normal [facility] ( [facility]) Platelet Count, Automated 211 10 150-450 Normal (applies to non-numeric results) [facility] ([facility]) Eos % 3.4 % 0.0-3.0 Above high normal [facility] ([facility]) [place] % 8.2 % 0.0-5.0 Above high normal [facility] ([facility]) Immature Granulocyte % 0.3 % 0-3.0 Normal (applies to non-n umeric results) [facility] ([facility]) Baso % 1.3 % 0.0-1.0 Above high normal [facility] ([facility]) Nucleated Red Blood Cell % 0.0 % 0-0 Normal (applies to n on-numeric results) [facility] ([facility]) Lymph # 1.3 10 1.5-5.0 Below low normal [facility] ( [facility]) Neutrophils # 4.8 10 1.5-8.5 Normal (applies to non-numeric re sults) [facility] ([facility]) [place] # 0.6 10 0.0-0.8 Normal (applies to non-numeric resul ts) [facility] ([facility]) Eos # 0.2 10 0.0-0.5 Normal (applies to non-numeric resul ts) [facility] ([facility]) Baso # 0.1 10 0.0-0.2 Normal (applies to non-numeric resul ts) [facility] ([facility]) ID Date Data Source [id number] 09/14/2020 10:09:00 AM EST [facility] ([facility]) Name Value Range Interpretation Code Description Data Phuong rce(s) Supporting Document(s) Thyroid Stimulating Hormone 0.907 uIU/ML 0.358-3.740 Norm al (applies to non- numeric results) [facility] ([facility]) Free T4 1.16 ng/dL 0.76-1.46 Normal (applies to non-numeric resul ts) [facility] ([facility]) Procedure Social History Code Duration Value Status Description Data Source(s ) Smoking 10/05/2021 12:00:00 AM EST Patient has never smoked co mpleted Patient has never smoked [facility] ([facility] ) Smoking 09/08/2021 12:00:00 AM EST Patient has never smoked co mpleted Patient has never smoked [facility] ([facility], ) Vital Signs ID Date Data Source UNK Name Value Range Interpretation Code Description Data Source(s) Body weight 210.00 [lb_av] 210.00 [lb_av] [facility] T ([facility]) Body height 60 [in_i] 60 [in_i] [facility] 5'0" Systolic blood pressure 133 mm[Hg] 133 mm[Hg] M [facility] ([facility]) Heart rate 80 /min 80 /min [facility] Diastolic blood pressure 90 mm[Hg] 90 mm[Hg] [facility] ([facility]) Body mass index (BMI) [Ratio] 41.0 kg/m2 41.0 k g/m2 [facility] ([facility]) Body weight 210.00 [lb_av] 210.00 [lb_av] MEDEN T ([facility]) Respiratory rate 18 /min 18 /min [facility] ( [facility]) Diastolic blood pressure 78 mm[Hg] 78 mm[Hg] [facility] ([facility]) Body height 60.25 [in_i] 60.25 [in_i] [facility] ([facility]) 5'0.25" Body weight 213.00 [lb_av] 213.00 [lb_av] MEDEN T ([facility]) Body mass index (BMI) [Ratio] 41.2 kg/m2 41.2 k g/m2 [facility] ([facility]) Heart rate 101 /min 101 /min [facility] ([facility]) Respiratory rate 18 /min 18 /min [facility] ( [facility]) Body temperature 98.9 [degF] 98.9 [degF] [facility] ([facility]) Oxygen saturation in Arterial blood by Pulse oximetry 95 % 95 % [facility] ([facility]) [place] body weight 100 [lb_av] 100 [lb_av] MEDEN T ([facility]) Systolic blood pressure 126 mm[Hg] 126 mm[Hg] EDENT ([facility]) Diastolic blood pressure 70 mm[Hg] 70 mm[Hg] [facility] ([facility], ) Systolic blood pressure 110 mm[Hg] 110 mm[Hg] M EDENT ([facility], ) Body weight 212.00 [lb_av] 212.00 [lb_av] MEDEN T ([facility]) Body weight 96.163 kg 96.163 kg [facility] ([facility]) Body height 60 [in_i] 60 [in_i] [facility] ([facility]) 5'0" Body mass index (BMI) [Ratio] 41.4 kg/m2 41.4 k g/m2 [facility] ([facility]) [facility] body weight 100 [lb_av] 100 [lb_av] MEDEN T ([facility]) Body surface area Derived from formula 1.91 m2 1.91 m2 [facility] ([facility]) Heart rate 70 /min 70 /min [facility] ([facility]) Oxygen saturation in Arterial blood by Pulse oximetry 96 % 96 % [facility] ([facility]) Respiratory rate 18 /min 18 /min [facility] ( [facility]) Body mass index (BMI) [Ratio] 40.7 kg/m2 40.7 k g/m2 [facility] ([facility]) Body weight 210.25 [lb_av] 210.25 [lb_av] MEDEN T ([facility]) Systolic blood pressure 130 mm[Hg] 130 mm[Hg] M EDENT ([facility]) Diastolic blood pressure 78 mm[Hg] 78 mm[Hg] [facility] ([facility]) Heart rate 85 /min 85 /min [facility] ([facility]) [facility] rate 12 /min 12 /[facility] Body temperature 98.9 [degF] 98.9 [degF] [facility] ([facility]) Oxygen saturation in Arterial blood by Pulse oximetry 98 % 98 % [facility] body weight 100 [lb_av] 100 [lb_av] MEDEN T ([facility]) Body height 60.25 [in_i] 60.25 [in_i] [facility] ([facility]) 5'0.25" Systolic blood pressure 110 mm[Hg] 110 mm[Hg] M EDENT ([facility], ) Diastolic blood pressure 80 mm[Hg] 80 mm[Hg] [facility] ([facility]) Heart rate 80 /min 80 /min [facility] ([facility]) Respiratory rate 20 /min 20 /min [facility] ( [facility]) Body mass index (BMI) [Ratio] 38.9 kg/m2 38.9 k g/m2 [facility] ([facility]) Body weight 199.00 [lb_av] 199.00 [lb_av] MEDEN T ([facility]) Body height 60 [in_i] 60 [in_i] [facility] 5'0" Systolic blood pressure 130 mm[Hg] 130 mm[facility]Hg] [facility] Diastolic blood pressure 70 mm[Hg] 70 mm[Hg] [facility] ([facility]) Body weight 92.988 kg 92.988 kg [facility] ([facility]) Systolic blood pressure 120 mm[Hg] 120 mm[Hg] M [facility] ([facility]) Body mass index (BMI) [Ratio] 40.0 kg/m2 40.0 k g/m2 [facility] ([facility]) Oxygen saturation in Arterial blood by Pulse oximetry 97 % 97 % [facility] ([facility]) Body surface area Derived from formula 1.89 m2 1.89 m2 [facility] ([facility]) Diastolic blood pressure 80 mm[Hg] 80 mm[Hg] [facility] ([facility]) Heart rate 87 /min 87 /min [facility] ([facility]) Body height 60 [in_i] 60 [in_i] [facility] ([facility]) 5'0" Body weight 205.00 [lb_av] 205.00 [[facility]_av] [facility] body weight 100 [lb_av] 100 [lb_av] [facility] Systolic blood pressure 130 mm[Hg] 130 mm[facility]Hg] [facility] Diastolic blood pressure 80 mm[Hg] 80 mm[Hg] [facility] Heart rate 78 /min 78 /min [facility] ([facility], ) Respiratory rate 16 /min 16 /min [facility] ( [facility]) Diastolic blood pressure 72 mm[Hg] 72 mm[Hg] [facility] Body height 60.25 [in_i] 60.25 [in_i] [facility] 5'0.25" Systolic blood pressure 118 mm[Hg] 118 mm[Hg] M EDENT ([facility]) Body mass index (BMI) [Ratio] 39.9 kg/m2 39.9 k g/m2 [facility] ([facility]) Respiratory rate 14 /min 14 /min [facility] ( [facility]) Body temperature 98.8 [degF] 98.8 [degF] [facility] ([facility]) Oxygen saturation in Arterial blood by Pulse oximetry 98 % 98 % [facility] ([facility]) [facility] body weight 100 [lb_av] 100 [lb_av] MEDEN T ([facility]) Body weight 206.00 [lb_av] 206.00 [lb_av] MEDEN T ([facility]) Heart rate 100 /min 100 /min [facility] ([facility]) Systolic blood pressure 132 mm[Hg] 132 mm[Hg] EDENT ([facility]) Diastolic blood pressure 84 mm[Hg] 84 mm[Hg] [facility] ([facility]) Body weight 202.00 [lb_av] 202.00 [lb_av] MEDEN T ([facility]) Body temperature 97.0 [degF] 97.0 [degF] [facility] ([facility]) Heart rate 88 /min 88 /min [facility] Body weight 213.25 [lb_av] 213.25 [lb_av] [facility] T ([facility]) Respiratory rate 16 /min 16 /min [facility] ( [facility]) Diastolic blood pressure 83 mm[Hg] 83 mm[Hg] [facility] ([facility]) Systolic blood pressure 129 mm[Hg] 129 mm[Hg] M [facility] ([facility]) Body mass index (BMI) [Ratio] 41.6 kg/m2 41.6 k g/m2 [facility] ([facility] Body height 60 [in_i] 60 [in_i] [facility] ([facility]) 5'0" Heart rate 98 /min 98 /min [facility] ([facility]) Systolic blood pressure 128 mm[Hg] 128 mm[Hg] M EDENT ([facility]) Diastolic blood pressure 82 mm[Hg] 82 mm[Hg] SUPRIYA ([facility]) Body height 60.25 [in_i] 60.25 [in_i] SUPRIYA ([facility]) 5'0.25" Body weight 209.38 [lb_av] 209.38 [lb_av] CRISTELA Velez ([facility]) Body mass index (BMI) [Ratio] 40.5 kg/m2 40.5 k g/m2 SUPRIYA ([facility]) Respiratory rate 20 /min 20 /min SUPRIYA ( [facility]) Body temperature 99.6 [degF] 99.6 [degF] SUPRIYA ([facility]) Oxygen saturation in Arterial blood by Pulse oximetry 97 % 97 % SUPRIYA ([facility]) [facility] body weight 100 [lb_av] 100 [lb_av] CRISTELA Velez ([facility])
== END 2021-10-05 23:00 | disposition home or self-care (01) ==
LOC: M ED 18:50
DX: S93.401A Sprain of unspecified ligament of right ankle, initial encounter (principal); W01.0XXA Fall on same level from slipping, tripping and stumbling without subsequent striking against object, initial encounter; Y92.009 Unspecified place in unspecified non-institutional (private) residence as the place of occurrence of the external cause; Y93.9 Activity, unspecified; Y99.9 Unspecified external cause status; Z88.2 Allergy status to sulfonamides; Z79.899 Other long term (current) drug therapy

== ENCOUNTER → 2021-10-11 | Outpatient (REF) | payer MEDICARE ==
[~2021-10-11] MED LIST changes: +AMOX500T; +LEVOTAB10
[2021-10-11 17:06] LABS: APPEARANCE, URINE CLEAR (CLEAR); BACTERIA, URINE AUTO NEGATIVE (NEGATIVE); BILIRUBIN, URINE AUTO NEGATIVE (NEGATIVE); BLOOD, URINE BLOOD 3+ (NEGATIVE); COLOR, URINE YELLOW (YELLOW); GLUCOSE, URINE (UA) AUTO NEGATIVE (NEGATIVE); KETONE, URINE AUTO NEGATIVE (NEGATIVE); LEUKOCYTE ESTERASE, URINE AUTO NEGATIVE (NEGATIVE); NITRITE, URINE AUTO NEGATIVE (NEGATIVE); PROTEIN, URINE AUTO 1+ mg/dL (NEGATIVE); RBC, URINE AUTO 75 /HPF (0-3); SPECIFIC GRAVITY URINE AUTO 1.003 (1.002-1.035); SQUAMOUS EPITHELIAL CELL UR AU 0 /HPF (0-6); UROBILINOGEN, URINE AUTO 0.2 mg/dL (0.0-2.0); WBC, URINE AUTO 3 /HPF (0-3)
== END ==
LOC: M LAB REF 16:24
PROVIDERS: ATTEND Physician Assistant
DX: R30.0 Dysuria (principal)

== ENCOUNTER → 2022-03-21 | Outpatient (CLI) | payer MEDICARE ==
[2022-03-21 16:25] LABS: BASO # 0.1 10^3/uL (0.0-0.2); BASO % 1.2 % (0.0-1.0); EOS # 0.3 10^3/uL (0.0-0.5); EOS % 3.6 % (0.0-3.0); HEMATOCRIT 43.8 % (36.0-47.0); HEMOGLOBIN 14.5 g/dl (12.0-15.5); LYMPH # 1.6 10^3/uL (1.5-5.0); LYMPH % 17.1 % (24.0-44.0); MEAN CORPUSCULAR HEMOGLOBIN 28.9 pg (27.0-33.0); MEAN CORPUSCULAR HGB CONC 33.1 g/dl (32.0-36.5); MEAN CORPUSCULAR VOLUME 87.4 fl (80.0-96.0); MONO # 0.9 10^3/uL (0.0-0.8); MONO % 9.3 % (2.0-8.0); NEUTROPHILS # 6.5 10^3/uL (1.5-8.5); NEUTROPHILS % 68.3 % (36.0-66.0); PLATELET COUNT, AUTOMATED 171 10^3/uL (150-450); RED BLOOD COUNT 5.01 10^6/uL (4.00-5.40); WHITE BLOOD COUNT 9.5 10^3/uL (4.0-10.0)
[2022-03-21 17:02] LABS: ALBUMIN 3.7 GM/DL (3.2-5.2); ALT/SGPT 79 U/L (12-78); BILIRUBIN,TOTAL 0.6 MG/DL (0.2-1.0); BLOOD UREA NITROGEN 17 MG/DL (7-18); CALCIUM LEVEL 8.8 MG/DL (8.5-10.1); CARBON DIOXIDE LEVEL 29 MEQ/L (21-32); CHLORIDE LEVEL 105 MEQ/L (98-107); CREATININE FOR GFR 1.01 MG/DL (0.55-1.30); FREE T4 1.09 NG/DL (0.76-1.46); GLOMERULAR FILTRATION RATE > 60.0 (>51); GLUCOSE, FASTING 121 MG/DL (70-100); NT-PRO BNP 49 PG/ML (<125); POTASSIUM SERUM 3.9 MEQ/L (3.5-5.1); SODIUM LEVEL 140 MEQ/L (136-145); TOTAL 25(OH) VITAMIN D 28.2 NG/ML (30.0-100.0); TOTAL PROTEIN 7.3 GM/DL (6.4-8.2)
[2022-03-21 17:03] LABS: FOLATE > 24.0 NG/ML
[2022-03-21 18:15] LABS: VITAMIN B12 LEVEL 1580 PG/ML
== END ==
LOC: M LAB 15:22
PROVIDERS: ATTEND Physician Assistant
DX: E03.9 Hypothyroidism, unspecified (principal); I49.9 Cardiac arrhythmia, unspecified; J45.30 Mild persistent asthma, uncomplicated; Z79.899 Other long term (current) drug therapy

== ENCOUNTER → 2022-05-12 | Outpatient (CLI) | payer MEDICARE ==
[2022-05-12 11:55] LABS: BASO # 0.1 10^3/uL (0.0-0.2); BASO % 1.1 % (0.0-1.0); EOS # 0.2 10^3/uL (0.0-0.5); EOS % 2.7 % (0.0-3.0); HEMATOCRIT 41.7 % (36.0-47.0); HEMOGLOBIN 13.7 g/dl (12.0-15.5); LYMPH # 1.2 10^3/uL (1.5-5.0); MEAN CORPUSCULAR HEMOGLOBIN 29.6 pg (27.0-33.0); MEAN CORPUSCULAR HGB CONC 32.9 g/dl (32.0-36.5); MEAN CORPUSCULAR VOLUME 90.1 fl (80.0-96.0); MONO # 0.7 10^3/uL (0.0-0.8); MONO % 9.6 % (2.0-8.0); NEUTROPHILS # 5.2 10^3/uL (1.5-8.5); NEUTROPHILS % 70.2 % (36.0-66.0); PLATELET COUNT, AUTOMATED 175 10^3/uL (150-450); RED BLOOD COUNT 4.63 10^6/uL (4.00-5.40); WHITE BLOOD COUNT 7.4 10^3/uL (4.0-10.0)
[2022-05-12 12:13] LABS: HEMOGLOBIN A1c 5.8 %
[2022-05-12 12:19] LABS: ERYTHROCYTE SEDIMENTATION RATE 13 mm/hr (0-30)
[2022-05-12 12:32] LABS: ALBUMIN 3.6 GM/DL (3.2-5.2); ALT/SGPT 41 U/L (12-78); BILIRUBIN,TOTAL 0.7 MG/DL (0.2-1.0); BLOOD UREA NITROGEN 27 MG/DL (7-18); CALCIUM LEVEL 8.8 MG/DL (8.5-10.1); CARBON DIOXIDE LEVEL 26 MEQ/L (21-32); CHLORIDE LEVEL 112 MEQ/L (98-107); CREATININE FOR GFR 1.07 MG/DL (0.55-1.30); GLOMERULAR FILTRATION RATE 56.7 (>51); GLUCOSE, FASTING 98 MG/DL (70-100); POTASSIUM SERUM 3.9 MEQ/L (3.5-5.1); RHEUMATOID FACTOR QUANT < 10.0 IU/ML (<15.0); SODIUM LEVEL 144 MEQ/L (136-145); TOTAL PROTEIN 6.9 GM/DL (6.4-8.2)
== END ==
LOC: M LAB 10:25
PROVIDERS: ATTEND Psychiatry & Neurology Neurology
DX: R41.89 Other symptoms and signs involving cognitive functions and awareness (principal); Z79.899 Other long term (current) drug therapy

== ENCOUNTER → 2022-06-17 | Outpatient (REF) | payer MEDICARE ==
[2022-06-17 14:55] LABS: APPEARANCE, URINE MANUAL CLOUDY (CLEAR); COLOR, URINE MANUAL YELLOW (YELLOW)
[2022-06-17 14:56] LABS: BILIRUBIN, URINE MANUAL NEGATIVE (NEGATIVE); BLOOD URINE MANUAL POSITIVE (NEGATIVE); GLUCOSE, URINE (UA) MANUAL NEGATIVE (NEGATIVE); KETONE, URINE MANUAL NEGATIVE (NEGATIVE); LEUKOCYTE ESTERASE, URINE MAN POSITIVE (NEGATIVE); NITRITE, URINE MANUAL POSITIVE (NEGATIVE); PROTEIN, URINE MANUAL 1+ mg/dL (NEGATIVE); UROBILINOGEN, URINE MANUAL NORMAL (NORMAL)
[2022-06-17 15:16] LABS: WBC, URINE TNTC /hpf (0-3)
[2022-06-17 15:18] LABS: BACTERIA, URINE LARGE AMOUNT; HYALINE CAST, URINE NONE SEEN /lpf (0-1); RBC, URINE 30-40 /hpf (0-3); SQUAMOUS EPITHELIAL CELL URINE SMALL AMOUNT /hpf (SMALL AMT)
== END ==
LOC: M LAB REF 14:45
PROVIDERS: ATTEND Physician Assistant Medical
DX: N39.0 Urinary tract infection, site not specified (principal)

== ENCOUNTER → 2022-07-03 | Outpatient (REF) | payer MEDICARE ==
[2022-07-03 13:52] LABS: APPEARANCE, URINE MANUAL CLOUDY (CLEAR); COLOR, URINE MANUAL YELLOW (YELLOW); PH,URINE MAN 6.5 UNITS (5.0 - 7.0)
[2022-07-03 13:53] LABS: BILIRUBIN, URINE MANUAL NEGATIVE (NEGATIVE); BLOOD URINE MANUAL POSITIVE (NEGATIVE); GLUCOSE, URINE (UA) MANUAL NEGATIVE (NEGATIVE); KETONE, URINE MANUAL NEGATIVE (NEGATIVE); LEUKOCYTE ESTERASE, URINE MAN POSITIVE (NEGATIVE); NITRITE, URINE MANUAL POSITIVE (NEGATIVE); PROTEIN, URINE MANUAL 1+ mg/dL (NEGATIVE); UROBILINOGEN, URINE MANUAL NORMAL (NORMAL)
[2022-07-03 14:16] LABS: BACTERIA, URINE LARGE AMOUNT; HYALINE CAST, URINE NONE SEEN /lpf (0-1); MUCUS, URINE SMALL AMOUNT (NEGATIVE); SQUAMOUS EPITHELIAL CELL URINE SMALL AMOUNT /hpf (SMALL AMT); WBC, URINE 20-30 /hpf (0-3)
== END ==
LOC: M LAB REF 12:19
PROVIDERS: ATTEND Physician Assistant Medical
DX: N39.0 Urinary tract infection, site not specified (principal)

== ENCOUNTER → 2022-07-09 | Outpatient (REF) | payer MEDICARE ==
[2022-07-09 19:53] LABS: APPEARANCE, URINE MANUAL CLEAR (CLEAR); BILIRUBIN, URINE MANUAL NEGATIVE (NEGATIVE); BLOOD URINE MANUAL NEGATIVE (NEGATIVE); COLOR, URINE MANUAL YELLOW (YELLOW); GLUCOSE, URINE (UA) MANUAL NEGATIVE (NEGATIVE); KETONE, URINE MANUAL NEGATIVE (NEGATIVE); LEUKOCYTE ESTERASE, URINE MAN NEGATIVE (NEGATIVE); NITRITE, URINE MANUAL NEGATIVE (NEGATIVE); PROTEIN, URINE MANUAL NEGATIVE (NEGATIVE); SPECIFIC GRAVITY,URINE MANUAL 1.015 (1.002-1.035); UROBILINOGEN, URINE MANUAL NORMAL (NORMAL)
== END ==
LOC: M LAB REF 17:19
PROVIDERS: ATTEND Physician Assistant
DX: N39.0 Urinary tract infection, site not specified (principal)

== ENCOUNTER → 2022-09-06 | Outpatient (REF) | payer MEDICARE ==
[2022-09-06 17:53] LABS: APPEARANCE, URINE MANUAL HAZY (CLEAR); BILIRUBIN, URINE MANUAL NEGATIVE (NEGATIVE); BLOOD URINE MANUAL POSITIVE (NEGATIVE); COLOR, URINE MANUAL YELLOW (YELLOW); GLUCOSE, URINE (UA) MANUAL NEGATIVE (NEGATIVE); KETONE, URINE MANUAL NEGATIVE (NEGATIVE); LEUKOCYTE ESTERASE, URINE MAN POSITIVE (NEGATIVE); NITRITE, URINE MANUAL POSITIVE (NEGATIVE); PROTEIN, URINE MANUAL TRACE mg/dL (NEGATIVE); UROBILINOGEN, URINE MANUAL NORMAL (NORMAL)
[2022-09-06 19:08] LABS: BACTERIA, URINE LARGE AMOUNT; SQUAMOUS EPITHELIAL CELL URINE SMALL AMOUNT /hpf (SMALL AMT); WBC, URINE TNTC /hpf (0-3)
== END ==
LOC: M LAB REF 17:23
PROVIDERS: ATTEND Physician Assistant Medical
DX: N39.0 Urinary tract infection, site not specified (principal)

== ENCOUNTER → 2022-09-24 | Outpatient (CLI) | payer MEDICARE ==
[2022-09-24 08:15] LABS: BASO # 0.1 10^3/uL (0.0-0.2); BASO % 0.6 % (0.0-1.0); EOS # 0.2 10^3/uL (0.0-0.5); HEMATOCRIT 41.3 % (36.0-47.0); HEMOGLOBIN 13.7 g/dl (12.0-15.5); LYMPH # 1.1 10^3/uL (1.5-5.0); LYMPH % 14.1 % (24.0-44.0); MEAN CORPUSCULAR HEMOGLOBIN 29.8 pg (27.0-33.0); MEAN CORPUSCULAR HGB CONC 33.2 g/dl (32.0-36.5); MEAN CORPUSCULAR VOLUME 89.8 fl (80.0-96.0); MONO # 0.7 10^3/uL (0.0-0.8); MONO % 8.7 % (2.0-8.0); NEUTROPHILS # 5.7 10^3/uL (1.5-8.5); NEUTROPHILS % 73.3 % (36.0-66.0); PLATELET COUNT, AUTOMATED 170 10^3/uL (150-450); WHITE BLOOD COUNT 7.7 10^3/uL (4.0-10.0)
[2022-09-24 08:58] LABS: ALBUMIN 3.7 G/DL (3.2-5.2); ALKALINE PHOSPHATASE 58 U/L (46-116); ALT/SGPT 46 U/L (7.0-40); AST/SGOT 35 U/L (<34); BILIRUBIN,TOTAL 0.6 MG/DL (0.3-1.2); BLOOD UREA NITROGEN 20 MG/DL (9-23); CALCIUM LEVEL 8.6 MG/DL (8.5-10.1); CARBON DIOXIDE LEVEL 28 MMOL/L (20-31); CHLORIDE LEVEL 105 MMOL/L (98-107); CREATININE FOR GFR 0.72 MG/DL (0.55-1.30); FREE T4 0.96 NG/DL (0.89-1.76); GLOMERULAR FILTRATION RATE > 60.0 (>51); GLUCOSE, FASTING 110 MG/DL (60-100); POTASSIUM SERUM 4.2 MMOL/L (3.5-5.1); SODIUM LEVEL 142 MMOL/L (136-145); THYROID STIMULATING HORMONE 1.708 uIU/ML (0.55-4.78)
[2022-09-24 09:10] LABS: HEMOGLOBIN A1c 5.2 % (4.0-6.0)
== END ==
LOC: M LAB 07:27
PROVIDERS: ATTEND Physician Assistant
DX: E03.9 Hypothyroidism, unspecified (principal); K59.00 Constipation, unspecified; R73.01 Impaired fasting glucose

== ENCOUNTER → 2022-09-27 | Outpatient (CLI) | payer MEDICARE ==
[~2022-09-27] MED LIST changes: +GASTROGRAFIN SOLUTION 30ML As Ordered ONE
== END ==
LOC: M RAD 08:41
PROVIDERS: ATTEND Physician Assistant
DX: R16.1 Splenomegaly, not elsewhere classified (principal); R91.1 Solitary pulmonary nodule; N28.1 Cyst of kidney, acquired
CPT/HCPCS: 74177; Q9963

== ENCOUNTER → 2022-11-15 | Outpatient (CLI) | payer MEDICARE ==
[~2022-11-15] MED LIST changes: -GASTROGRAFIN SOLUTION 30ML As Ordered ONE
== END ==
LOC: M PLARAD 10:41
PROVIDERS: ATTEND Physician Assistant
DX: Q61.02 Congenital multiple renal cysts (principal)

== ENCOUNTER → 2023-03-26 | Outpatient (CLI) | payer MEDICARE | LOC: M RAD 10:45 | PROVIDERS: ATTEND Physician Assistant | DX: R10.10 Upper abdominal pain, unspecified (principal) ==

== ENCOUNTER → 2023-04-01 | Outpatient (CLI) | payer MEDICARE ==
[2023-04-01 08:00] LABS: BASO # 0.1 10^3/uL (0.0-0.2); BASO % 1.2 % (0.0-1.0); EOS # 0.3 10^3/uL (0.0-0.5); EOS % 4.7 % (0.0-3.0); HEMATOCRIT 44.4 % (36.0-47.0); HEMOGLOBIN 14.5 g/dl (12.0-15.5); LYMPH # 1.2 10^3/uL (1.5-5.0); LYMPH % 17.8 % (24.0-44.0); MEAN CORPUSCULAR HEMOGLOBIN 29.1 pg (27.0-33.0); MEAN CORPUSCULAR HGB CONC 32.7 g/dl (32.0-36.5); MONO # 0.6 10^3/uL (0.0-0.8); MONO % 9.3 % (2.0-8.0); NEUTROPHILS # 4.5 10^3/uL (1.5-8.5); NEUTROPHILS % 66.6 % (36.0-66.0); PLATELET COUNT, AUTOMATED 175 10^3/uL (150-450); RED BLOOD COUNT 4.99 10^6/uL (4.00-5.40); WHITE BLOOD COUNT 6.8 10^3/uL (4.0-10.0)
[2023-04-01 08:22] LABS: TOTAL 25(OH) VITAMIN D 84.6 NG/ML (20.0-100.0)
[2023-04-01 08:23] LABS: THYROID STIMULATING HORMONE 1.346 uIU/ML (0.55-4.78)
[2023-04-01 08:24] LABS: FREE T4 0.98 NG/DL (0.89-1.76)
[2023-04-01 08:25] LABS: VITAMIN B12 LEVEL 729 PG/ML (211-911)
[2023-04-01 08:30] LABS: ALBUMIN 3.8 G/DL (3.2-5.2); ALKALINE PHOSPHATASE 61 U/L (46-116); ALT/SGPT 24 U/L (7.0-40); AST/SGOT 15 U/L (<34); BILIRUBIN,TOTAL 0.7 MG/DL (0.3-1.2); BLOOD UREA NITROGEN 19 MG/DL (9-23); CALCIUM LEVEL 8.5 MG/DL (8.5-10.1); CARBON DIOXIDE LEVEL 29 MMOL/L (20-31); CHLORIDE LEVEL 107 MMOL/L (98-107); CHOLESTEROL LEVEL 139 MG/DL (<200); CHOLESTEROL RISK RATIO 3.27 (<5); CREATININE FOR GFR 0.82 MG/DL (0.55-1.30); GLOMERULAR FILTRATION RATE > 60.0 (>51); GLUCOSE, FASTING 98 MG/DL (60-100); HDL CHOLESTEROL 42.4 MG/DL (>40); LDL CHOLESTEROL 77.6 MG/DL (<100); NON-HDL-C 96.6 MG/DL; POTASSIUM SERUM 4.3 MMOL/L (3.5-5.1); SODIUM LEVEL 142 MMOL/L (136-145); TOTAL PROTEIN 6.9 G/DL (5.7-8.2); TRIGLYCERIDES LEVEL 95 MG/DL (<150)
[2023-04-01 09:05] LABS: HEMOGLOBIN A1c 5.2 % (4.0-6.0)
== END ==
LOC: M LAB 07:23
PROVIDERS: ATTEND Physician Assistant
DX: E03.9 Hypothyroidism, unspecified (principal); E78.2 Mixed hyperlipidemia; R73.01 Impaired fasting glucose

== ENCOUNTER 2023-04-15 21:04 | Emergency (ER) | payer MEDICARE ==
[~2023-04-15] VITALS: Ht 152.4 cm; Wt 94.0 kg
[2023-04-15] MEDS ORDERED: FLEC25TA (21:23)
[2023-04-15] MEDS ORDERED: REST0.05 (21:23)
[2023-04-15] MEDS ORDERED: ARIP1TAB10 (21:23)
[2023-04-15] MEDS ORDERED: LINZ145C (21:23)
[2023-04-15] MEDS ORDERED: SPIR1AER (21:23)
[2023-04-15] MEDS ORDERED: LATANOPROST (21:23)
[2023-04-15] MEDS ORDERED: BRIN1TAB (21:23)
[2023-04-15] MEDS ORDERED: BUDE10.2 (21:23)
[2023-04-15] MEDS ORDERED: ATEN25TA (21:23)
[2023-04-16 00:15] VITALS: BP 99/65; TEMP 97.8; O2SAT 94
== END 2023-04-16 02:10 | disposition left against medical advice (07) ==
LOC: M ED 21:04
DX: S99.912A Unspecified injury of left ankle, initial encounter (principal); X58.XXXA Exposure to other specified factors, initial encounter; Y92.89 Other specified places as the place of occurrence of the external cause; Y93.89 Activity, other specified; Y99.8 Other external cause status; Z53.21 Procedure and treatment not carried out due to patient leaving prior to being seen by health care provider

== ENCOUNTER → 2023-06-04 | Outpatient (REF) | payer MEDICARE ==
[~2023-06-04] MED LIST changes: +ARIP1TAB10; +ATEN25TA; +BRIN1TAB; +BUDE10.2; +FLEC25TA; +LATANOPROST; +LINZ145C; +REST0.05; +SPIR1AER
== END ==
LOC: M LAB REF 17:21
PROVIDERS: ATTEND Internal Medicine Nephrology
DX: N39.0 Urinary tract infection, site not specified (principal)

== ENCOUNTER → 2023-08-15 | Outpatient (REF) | payer MEDICARE ==
[~2023-08-15] MED LIST changes: +ALBU8.5H INH; -ATEN25TA; +ATEN25TA PO; -BRIN1TAB; +BRIN1TAB PO; -BUDE10.2; +BUDE10.2 INH; +DOXE75CA2 PO; +ERGO500029 PO; -LEVOTAB10; +LEVOTAB10 PO; -LINZ145C; +LINZ145C PO; +NITR100C2 PO; -OXYB5TAB10 PO; +OXYB5TAB11 PO; -REST0.05; +REST0.05 OU; -SPIR1AER; +SPIR1AER INH; +XALA0.007 OU; +XIID5DRO OU
[2023-08-15 14:03] LABS: APPEARANCE, URINE CLEAR (CLEAR); BACTERIA, URINE AUTO NEGATIVE (NEGATIVE); BILIRUBIN, URINE AUTO NEGATIVE (NEGATIVE); BLOOD, URINE BLOOD NEGATIVE (NEGATIVE); COLOR, URINE YELLOW (YELLOW); GLUCOSE, URINE (UA) AUTO NEGATIVE (NEGATIVE); KETONE, URINE AUTO NEGATIVE (NEGATIVE); LEUKOCYTE ESTERASE, URINE AUTO TRACE (NEGATIVE); MUCUS, URINE SMALL (NEGATIVE); NITRITE, URINE AUTO NEGATIVE (NEGATIVE); PROTEIN, URINE AUTO NEGATIVE (NEGATIVE); RBC, URINE AUTO 0 /HPF (0-3); SPECIFIC GRAVITY URINE AUTO 1.015 (1.002-1.035); SQUAMOUS EPITHELIAL CELL UR AU 1 /HPF (0-6); UROBILINOGEN, URINE AUTO 0.2 mg/dL (0.0-2.0); WBC, URINE AUTO 4 /HPF (0-3)
== END ==
LOC: M LAB REF 13:01
PROVIDERS: ATTEND Physician Assistant
DX: N39.0 Urinary tract infection, site not specified (principal)

== ENCOUNTER 2023-08-16 17:40 | Inpatient (IN) | payer MEDICARE ==
[~2023-08-16] VITALS: Ht 152.4 cm; Wt 96.0 kg
[~2023-08-16 17:40] MED LIST changes: -ALBU8.5H INH; -DOXE75CA2 PO; -ERGO500029 PO; -NITR100C2 PO; -XALA0.007 OU; -XIID5DRO OU
[2023-08-16 18:32] LABS: HEMATOCRIT 40.5 % (36.0-47.0); HEMOGLOBIN 13.7 g/dl (12.0-15.5); MEAN CORPUSCULAR HEMOGLOBIN 29.5 pg (27.0-33.0); MEAN CORPUSCULAR HGB CONC 33.8 g/dl (32.0-36.5); MEAN CORPUSCULAR VOLUME 87.3 fl (80.0-96.0); PLATELET COUNT, AUTOMATED 163 10^3/uL (150-450); RED BLOOD COUNT 4.64 10^6/uL (4.00-5.40); WHITE BLOOD COUNT 6.6 10^3/uL (4.0-10.0)
[2023-08-16 18:50] LABS: INR 1.59; PROTHROMBIN TIME 18.5 SECONDS (12.5-14.5)
[2023-08-16 18:51] LABS: PARTIAL THROMBOPLASTIN TIME 40.5 SECONDS (24.8-34.2)
[2023-08-16 19:12] LABS: RSV AMPLIFICATION NEGATIVE (NEGATIVE)
[2023-08-16] MEDS ORDERED: DOXEPIN 25 MG CAP PO SCH (21:00)
[2023-08-16] MEDS ORDERED: RAMELTEON 8 MG TAB (ROZEREM) PO SCH (21:00)
[2023-08-16] MEDS ORDERED: LATANOPROST 0.005% OPHTH SOLN 2.5 ML OU SCH (21:00)
[2023-08-16] MEDS ORDERED: ALBU8.5H INH (21:45)
[2023-08-16] MEDS ORDERED: XALA0.007 OU (21:45)
[2023-08-16] MEDS ORDERED: BRIN1TAB3 PO (21:45)
[2023-08-16] MEDS ORDERED: DOXE75CA2 PO (21:45)
[2023-08-16] MEDS ORDERED: ERGO500029 PO (21:47)
[2023-08-16] MEDS ORDERED: XIID5DRO OU (21:47)
[2023-08-16] MEDS ORDERED: NITR100C2 PO (21:47)
[2023-08-16] MEDS ORDERED: HOME MED LIST COMPLETE! XX SCH (21:50)
[2023-08-16] MEDS ORDERED: ALBUTEROL 90 MCG/ACT 8GM HFA INHALER INH PRN (23:00)
[2023-08-17] MEDS ORDERED: cefTRIAXone SOD 1GM VIAL IM SCH (00:15)
[2023-08-17] MEDS: GABAPENTIN 300 MG CAP PO SCH ×2 (00:31→08:33)
[2023-08-17] MEDS: atenoloL 25 MG TAB PO SCH ×2 (00:31→08:39)
[2023-08-17] MEDS ORDERED: cefTRIAXone SOD 1 GM in D5W MINI-BAG PLUS 50 ML IV SCH (01:00)
[2023-08-17 01:23] VITALS: BP 131/68; TEMP 97.5; O2SAT 94
[2023-08-17 06:00] VITALS: BP 113/62; TEMP 97.5; O2SAT 94
[2023-08-17] MEDS ORDERED: LEVOTHYROXINE 25MCG TABLET (0.025MG) PO SCH (06:00)
[2023-08-17 06:38] LABS: HEMATOCRIT 39.4 % (36.0-47.0); HEMOGLOBIN 13.2 g/dl (12.0-15.5); MEAN CORPUSCULAR HEMOGLOBIN 28.9 pg (27.0-33.0); MEAN CORPUSCULAR HGB CONC 33.5 g/dl (32.0-36.5); MEAN CORPUSCULAR VOLUME 86.4 fl (80.0-96.0); PLATELET COUNT, AUTOMATED 135 10^3/uL (150-450); RED BLOOD COUNT 4.56 10^6/uL (4.00-5.40); WHITE BLOOD COUNT 3.9 10^3/uL (4.0-10.0)
[2023-08-17] MEDS ORDERED: SYMBICORT 160/4.5MCG INHALER 6GM INH SCH ×2 (08:00→09:00)
[2023-08-17] MEDS ORDERED: TIOTROPIUM INHALER/CAPSULE (SPIRIVA) INH SCH (08:00)
[2023-08-17 08:03] LABS: ALKALINE PHOSPHATASE 59 U/L (35-104); ALT/SGPT 29 U/L (1-33); AST/SGOT 27 U/L (5-40); BILIRUBIN,DIRECT < 0.2 MG/DL (0.1-0.4); BILIRUBIN,TOTAL < 0.7 MG/DL (0.2-1.3)
[2023-08-17 08:04] LABS: ALBUMIN 4.2 G/DL (3.9-5.0); TOTAL PROTEIN 6.9 G/DL (6.3-8.2)
[2023-08-17 08:20] VITALS: O2SAT 92
[2023-08-17 08:39] VITALS: BP 112/63
[2023-08-17] MEDS ORDERED: ENTER DRUG NAME HERE (PATIENT'S OWN MED) OU SCH ×2 (09:00)
[2023-08-17] MEDS ORDERED: ENTER DRUG NAME HERE (PATIENT'S OWN MED) PO SCH ×3 (09:00)
[2023-08-17] MEDS ORDERED: CYANOCOBALAMIN 500 MCG TAB PO SCH (09:00)
[2023-08-17] MEDS ORDERED: FOLIC ACID 1MG TAB PO SCH (09:00)
[2023-08-17] MEDS ORDERED: PANTOPRAZOLE 40MG VIAL IV SCH (09:00)
[2023-08-17] MEDS ORDERED: ATORVASTATIN 20 MG TAB PO SCH (09:00)
[2023-08-18 13:00] LABS: ALT/SGPT 25 U/L (1-33); AST/SGOT 24 U/L (5-40); BLOOD UREA NITROGEN 15 MG/DL (7-21); CALCIUM LEVEL 8.8 MG/DL (8.4-10.2); CARBON DIOXIDE LEVEL 26 MEQ/L (22-30); CHLORIDE LEVEL 103 MEQ/L (98-107); CREATININE FOR GFR 0.8 MG/DL (0.7-1.5); GLOMERULAR FILTRATION RATE > 60.0 (>51); GLUCOSE, FASTING 135 MG/DL (70-99); POTASSIUM SERUM 3.4 MEQ/L (3.6-5.0); SODIUM LEVEL 141 MEQ/L (134-153)
[2023-08-18 13:01] LABS: ALBUMIN 3.7 G/DL (3.9-5.0); ALKALINE PHOSPHATASE 48 U/L (35-104); BILIRUBIN,TOTAL < 0.7 MG/DL (0.2-1.3); TOTAL PROTEIN 6.4 G/DL (6.3-8.2)
== END 2023-08-17 09:50 | disposition home or self-care (01) | DRG 378 ==
LOC: M ED 17:40 → M ED INP 22:59 → ENRESERV 08-17 00:17 → M MS5PR 08-17 01:15
PROVIDERS: ADMIT Internal Medicine; ATTEND Internal Medicine
DX: K62.5 Hemorrhage of anus and rectum (principal); N39.0 Urinary tract infection, site not specified; Z68.41 Body mass index [BMI] 40.0-44.9, adult; F41.9 Anxiety disorder, unspecified; F32.A Depression, unspecified; J45.909 Unspecified asthma, uncomplicated; L30.9 Dermatitis, unspecified; E03.9 Hypothyroidism, unspecified; N32.81 Overactive bladder; E78.5 Hyperlipidemia, unspecified; K59.09 Other constipation; G47.33 Obstructive sleep apnea (adult) (pediatric); R19.7 Diarrhea, unspecified; E66.01 Morbid (severe) obesity due to excess calories; Z79.890 Hormone replacement therapy; Z79.01 Long term (current) use of anticoagulants; Z79.899 Other long term (current) drug therapy; Z86.711 Personal history of pulmonary embolism; Z86.718 Personal history of other venous thrombosis and embolism

== ENCOUNTER → 2023-08-26 | Outpatient (REF) | payer MEDICARE ==
[~2023-08-26] MED LIST changes: +ALBU8.5H INH; +DOXE75CA2 PO; +ERGO500029 PO; +NITR100C2 PO; +XALA0.007 OU; +XIID5DRO OU
[2023-08-26 12:36] LABS: APPEARANCE, URINE HAZY (CLEAR); BACTERIA, URINE AUTO NEGATIVE (NEGATIVE); BILIRUBIN, URINE AUTO NEGATIVE (NEGATIVE); BLOOD, URINE BLOOD 3+ (NEGATIVE); COLOR, URINE YELLOW (YELLOW); GLUCOSE, URINE (UA) AUTO NEGATIVE (NEGATIVE); KETONE, URINE AUTO NEGATIVE (NEGATIVE); LEUKOCYTE ESTERASE, URINE AUTO 1+ (NEGATIVE); MUCUS, URINE SMALL (NEGATIVE); NITRITE, URINE AUTO NEGATIVE (NEGATIVE); PROTEIN, URINE AUTO NEGATIVE (NEGATIVE); RBC, URINE AUTO 23 /HPF (0-3); SPECIFIC GRAVITY URINE AUTO 1.017 (1.002-1.035); SQUAMOUS EPITHELIAL CELL UR AU 3 /HPF (0-6); UROBILINOGEN, URINE AUTO 0.2 mg/dL (0.0-2.0); WBC, URINE AUTO 14 /HPF (0-3)
== END ==
LOC: M LAB REF 12:05
PROVIDERS: ATTEND Physician Assistant
DX: N39.0 Urinary tract infection, site not specified (principal)

== ENCOUNTER 2023-10-11 08:31 | Day surgery (SDC) | payer MEDICARE ==
[~2023-10-11] VITALS: Ht 152.4 cm; Wt 98.1 kg
[~2023-10-11 08:31] MED LIST changes: +NS 1,000 ML IV ONE
[2023-10-11] MEDS ORDERED: propofoL 200 MG/20 ML VIAL As Ordered ONE ×2 (09:47→09:58)
[2023-10-11] MEDS ORDERED: ESMOLOL INJ 100MG/10ML VIAL As Ordered ONE (09:47)
[2023-10-11 10:03] VITALS: TEMP 96
[2023-10-11 10:15] VITALS: BP 127/69; O2SAT 93
== END 2023-10-11 10:32 | disposition home or self-care (01) ==
LOC: M OPP 08:31
PROVIDERS: ATTEND Internal Medicine Gastroenterology
DX: K92.1 Melena (principal); K64.8 Other hemorrhoids; Z90.49 Acquired absence of other specified parts of digestive tract; J45.909 Unspecified asthma, uncomplicated; E03.9 Hypothyroidism, unspecified; E78.00 Pure hypercholesterolemia, unspecified; Z79.899 Other long term (current) drug therapy; Z79.890 Hormone replacement therapy; Z88.2 Allergy status to sulfonamides; G47.30 Sleep apnea, unspecified; Z86.711 Personal history of pulmonary embolism; Z86.718 Personal history of other venous thrombosis and embolism; Z90.710 Acquired absence of both cervix and uterus; Z79.51 Long term (current) use of inhaled steroids
CPT/HCPCS: 45378; J1805

== ENCOUNTER → 2023-10-25 | Outpatient (CLI) | payer MEDICARE ==
[~2023-10-25] MED LIST changes: -NS 1,000 ML IV ONE
== END ==
LOC: M RAD 12:15
PROVIDERS: ATTEND Physician Assistant
DX: R91.1 Solitary pulmonary nodule (principal)

== ENCOUNTER → 2023-11-20 | Outpatient (REF) | payer MEDICARE | LOC: M LAB REF 17:00 | PROVIDERS: ATTEND Physician Assistant | DX: N39.0 Urinary tract infection, site not specified (principal) ==

== ENCOUNTER → 2024-01-07 | Outpatient (CLI) | payer MEDICARE ==
[~2024-01-07] MED LIST changes: -OXYB5TAB11 PO; +OXYB5TAB14 PO
[2024-01-07 10:43] LABS: BASO # 0.1 10^3/uL (0.0-0.2); BASO % 1.5 % (0.0-1.0); EOS # 0.3 10^3/uL (0.0-0.5); EOS % 3.9 % (0.0-3.0); HEMATOCRIT 46.1 % (36.0-47.0); HEMOGLOBIN 15.2 g/dl (12.0-15.5); LYMPH # 1.2 10^3/uL (1.5-5.0); LYMPH % 16.6 % (24.0-44.0); MEAN CORPUSCULAR HEMOGLOBIN 29.3 pg (27.0-33.0); MEAN CORPUSCULAR VOLUME 88.8 fl (80.0-96.0); MONO # 0.6 10^3/uL (0.0-0.8); MONO % 8.9 % (2.0-8.0); NEUTROPHILS # 4.9 10^3/uL (1.5-8.5); NEUTROPHILS % 68.5 % (36.0-66.0); PLATELET COUNT, AUTOMATED 199 10^3/uL (150-450); RED BLOOD COUNT 5.19 10^6/uL (4.00-5.40); WHITE BLOOD COUNT 7.2 10^3/uL (4.0-10.0)
[2024-01-07 11:12] LABS: ALBUMIN 3.8 G/DL (3.2-5.2); ALKALINE PHOSPHATASE 61 U/L (46-116); ALT/SGPT 115 U/L (7.0-40); AST/SGOT 81 U/L (<34); BILIRUBIN,TOTAL 0.9 MG/DL (0.3-1.2); BLOOD UREA NITROGEN 17 MG/DL (9-23); CALCIUM LEVEL 8.8 MG/DL (8.5-10.1); CARBON DIOXIDE LEVEL 26 MMOL/L (20-31); CHLORIDE LEVEL 108 MMOL/L (98-107); CREATININE FOR GFR 0.81 MG/DL (0.55-1.30); GLOMERULAR FILTRATION RATE > 60.0 (>51); GLUCOSE, FASTING 145 MG/DL (60-100); SODIUM LEVEL 138 MMOL/L (136-145)
[2024-01-07 11:14] LABS: FREE T4 1.21 NG/DL (0.89-1.76); THYROID STIMULATING HORMONE 1.428 uIU/ML (0.55-4.78)
[2024-01-07 11:51] LABS: HEMOGLOBIN A1c 6.2 % (4.0-6.0)
== END ==
LOC: M LAB 09:27
PROVIDERS: ATTEND Physician Assistant
DX: E03.9 Hypothyroidism, unspecified (principal); R73.01 Impaired fasting glucose

== ENCOUNTER → 2024-01-16 | Outpatient (CLI) | payer MEDICARE ==
[~2024-01-16] MED LIST changes: +ISOVUE-370 76% 100ML VIAL As Ordered ONE
== END ==
LOC: M RAD 15:30
PROVIDERS: ATTEND Physician Assistant
DX: R91.8 Other nonspecific abnormal finding of lung field (principal)
CPT/HCPCS: 71260; Q9967

== ENCOUNTER → 2024-03-25 | Outpatient (REF) | payer MEDICARE ==
[~2024-03-25] MED LIST changes: -ISOVUE-370 76% 100ML VIAL As Ordered ONE
== END ==
LOC: M LAB REF 17:09
PROVIDERS: ATTEND Physician Assistant
DX: R31.9 Hematuria, unspecified (principal)

== ENCOUNTER → 2024-04-09 | Outpatient (CLI) | payer MEDICARE ==
[2024-04-09 10:00] LABS: BASO # 0.1 10^3/uL (0.0-0.2); BASO % 1.3 % (0.0-1.0); EOS # 0.2 10^3/uL (0.0-0.5); EOS % 3.2 % (0.0-3.0); HEMATOCRIT 46.1 % (36.0-47.0); HEMOGLOBIN 15.4 g/dl (12.0-15.5); LYMPH # 0.8 10^3/uL (1.5-5.0); MEAN CORPUSCULAR HEMOGLOBIN 29.7 pg (27.0-33.0); MEAN CORPUSCULAR HGB CONC 33.4 g/dl (32.0-36.5); MONO # 0.5 10^3/uL (0.0-0.8); MONO % 8.6 % (2.0-8.0); NEUTROPHILS % 72.4 % (36.0-66.0); PLATELET COUNT, AUTOMATED 169 10^3/uL (150-450); RED BLOOD COUNT 5.18 10^6/uL (4.00-5.40); WHITE BLOOD COUNT 5.6 10^3/uL (4.0-10.0)
[2024-04-09 10:09] LABS: HEMOGLOBIN A1c 5.8 % (4.0-6.0)
[2024-04-09 10:47] LABS: ALBUMIN 3.9 G/DL (3.2-5.2); ALKALINE PHOSPHATASE 86 U/L (46-116); ALT/SGPT 115 U/L (7.0-40); AST/SGOT 64 U/L (<34); BILIRUBIN,DIRECT 0.2 MG/DL (<0.4); BILIRUBIN,TOTAL 0.6 MG/DL (0.3-1.2); BLOOD UREA NITROGEN 21 MG/DL (9-23); CALCIUM LEVEL 9.2 MG/DL (8.5-10.1); CARBON DIOXIDE LEVEL 26 MMOL/L (20-31); CHLORIDE LEVEL 106 MMOL/L (98-107); CHOLESTEROL LEVEL 159 MG/DL (<200); CHOLESTEROL RISK RATIO 3.34 (<5); CREATININE FOR GFR 0.72 MG/DL (0.55-1.30); GLOMERULAR FILTRATION RATE > 60.0 (>51); GLUCOSE, FASTING 158 MG/DL (60-100); HDL CHOLESTEROL 47.5 MG/DL (>40); LDL CHOLESTEROL 93.3 MG/DL (<100); NON-HDL-C 111.5 MG/DL; POTASSIUM SERUM 4.1 MMOL/L (3.5-5.1); SODIUM LEVEL 140 MMOL/L (136-145); TOTAL PROTEIN 7.1 G/DL (5.7-8.2); TRIGLYCERIDES LEVEL 91 MG/DL (<150)
== END ==
LOC: M LAB 09:14
PROVIDERS: ATTEND Physician Assistant
DX: E78.2 Mixed hyperlipidemia (principal); E03.9 Hypothyroidism, unspecified; R74.01 Elevation of levels of liver transaminase levels

== ENCOUNTER → 2024-07-10 | Outpatient (CLI) | payer MEDICARE ==
[2024-07-10 11:07] LABS: BASO # 0.1 10^3/uL (0.0-0.2); EOS # 0.2 10^3/uL (0.0-0.5); EOS % 2.7 % (0.0-3.0); HEMATOCRIT 42.9 % (36.0-47.0); HEMOGLOBIN 14.4 g/dl (12.0-15.5); LYMPH # 1.1 10^3/uL (1.5-5.0); LYMPH % 16.9 % (24.0-44.0); MEAN CORPUSCULAR HEMOGLOBIN 30.1 pg (27.0-33.0); MEAN CORPUSCULAR HGB CONC 33.6 g/dl (32.0-36.5); MEAN CORPUSCULAR VOLUME 89.6 fl (80.0-96.0); MONO # 0.6 10^3/uL (0.0-0.8); MONO % 8.5 % (2.0-8.0); NEUTROPHILS # 4.8 10^3/uL (1.5-8.5); NEUTROPHILS % 70.6 % (36.0-66.0); PLATELET COUNT, AUTOMATED 163 10^3/uL (150-450); RED BLOOD COUNT 4.79 10^6/uL (4.00-5.40); WHITE BLOOD COUNT 6.7 10^3/uL (4.0-10.0)
[2024-07-10 11:56] LABS: ALBUMIN 3.7 G/DL (3.2-5.2); ALKALINE PHOSPHATASE 62 U/L (46-116); ALT/SGPT 126 U/L (7.0-40); AST/SGOT 67 U/L (<34); BILIRUBIN,TOTAL 0.7 MG/DL (0.3-1.2); BLOOD UREA NITROGEN 28 MG/DL (9-23); CALCIUM LEVEL 9.5 MG/DL (8.5-10.1); CARBON DIOXIDE LEVEL 26 MMOL/L (20-31); CHLORIDE LEVEL 111 MMOL/L (98-107); CHOLESTEROL LEVEL 152 MG/DL (<200); CHOLESTEROL RISK RATIO 3.64 (<5); CREATININE FOR GFR 0.78 MG/DL (0.55-1.30); GLOMERULAR FILTRATION RATE > 60.0 (>51); GLUCOSE, FASTING 142 MG/DL (60-100); HDL CHOLESTEROL 41.7 MG/DL (>40); LDL CHOLESTEROL 93.3 MG/DL (<100); NON-HDL-C 110.3 MG/DL; POTASSIUM SERUM 4.2 MMOL/L (3.5-5.1); SODIUM LEVEL 141 MMOL/L (136-145); TOTAL PROTEIN 7.1 G/DL (5.7-8.2); TRIGLYCERIDES LEVEL 85 MG/DL (<150)
[2024-07-10 11:58] LABS: FREE T4 1.08 NG/DL (0.89-1.76); THYROID STIMULATING HORMONE 0.567 uIU/ML (0.55-4.78)
== END ==
LOC: M LAB 10:23
PROVIDERS: ATTEND Physician Assistant
DX: E03.9 Hypothyroidism, unspecified (principal); R73.01 Impaired fasting glucose; E78.2 Mixed hyperlipidemia

== ENCOUNTER → 2024-10-07 | Outpatient (REF) | payer MEDICARE ==
[~2024-10-07] MED LIST changes: +GABA-1172 PO; -GABA-282 PO
== END ==
LOC: M LAB REF 16:05
PROVIDERS: ATTEND Physician Assistant
DX: B34.9 Viral infection, unspecified (principal)

== ENCOUNTER → 2024-10-07 | Outpatient (CLI) | payer MEDICARE ==
[2024-10-07 10:29] LABS: ALBUMIN 3.8 G/DL (3.2-5.2); ALKALINE PHOSPHATASE 55 U/L (35-104); ALT/SGPT 115 U/L (7.0-40); AST/SGOT 66 U/L (<34); BILIRUBIN,TOTAL 0.9 MG/DL (0.3-1.2); BLOOD UREA NITROGEN 20 MG/DL (9-23); CARBON DIOXIDE LEVEL 26 MMOL/L (20-31); CHLORIDE LEVEL 107 MMOL/L (98-107); CREATININE FOR GFR 0.83 MG/DL (0.55-1.30); GLOMERULAR FILTRATION RATE > 60.0 (>51); GLUCOSE, FASTING 148 MG/DL (60-100); SODIUM LEVEL 142 MMOL/L (136-145); TOTAL PROTEIN 7.5 G/DL (5.7-8.2)
[2024-10-07 10:31] LABS: THYROXINE (T4) 10.8 UG/DL (4.5-10.9)
[2024-10-07 11:27] LABS: HEMOGLOBIN A1c 5.8 % (4.0-6.0)
== END ==
LOC: M LAB 08:53
PROVIDERS: ATTEND Physician Assistant
DX: R73.01 Impaired fasting glucose (principal); E03.9 Hypothyroidism, unspecified; B34.9 Viral infection, unspecified

== ENCOUNTER → 2024-10-08 | Outpatient (CLI) | payer MEDICARE | LOC: M WUC 09:56 | PROVIDERS: ATTEND Student in an Organized Health Care Education/Training Program | DX: R91.8 Other nonspecific abnormal finding of lung field (principal) ==

== ENCOUNTER → 2024-12-22 | Outpatient (REF) | payer MEDICARE | LOC: M LAB REF 17:33 | PROVIDERS: ATTEND Family Medicine | DX: R30.0 Dysuria (principal) ==

== ENCOUNTER → 2025-01-05 | Outpatient (CLI) | payer MEDICARE ==
[2025-01-05 11:06] LABS: ALBUMIN 3.8 G/DL (3.2-5.2); BILIRUBIN,TOTAL 0.7 MG/DL (0.3-1.2); CALCIUM LEVEL 9.8 MG/DL (8.5-10.1); CHOLESTEROL RISK RATIO 3.67 (<5); CREATININE FOR GFR 1.17 MG/DL (0.55-1.30); GLOMERULAR FILTRATION RATE 50.6 (>51); LDL CHOLESTEROL 101.8 MG/DL (<100); POTASSIUM SERUM 4.5 MMOL/L (3.5-5.1); THYROID STIMULATING HORMONE 1.535 uIU/ML (0.55-4.78); TOTAL PROTEIN 7.3 G/DL (5.7-8.2)
[2025-01-05 11:07] LABS: FREE T4 1.05 NG/DL (0.89-1.76)
[2025-01-05 11:30] LABS: HEMOGLOBIN A1c 5.8 % (4.0-6.0)
== END ==
LOC: M LAB 09:16
PROVIDERS: ATTEND Physician Assistant
DX: E78.2 Mixed hyperlipidemia (principal); E03.9 Hypothyroidism, unspecified; R73.01 Impaired fasting glucose; R74.01 Elevation of levels of liver transaminase levels

== ENCOUNTER 2025-02-19 14:03 | Emergency (ER) | payer MEDICARE ==
[~2025-02-19] VITALS: Ht 152.4 cm; Wt 86.8 kg
[~2025-02-19 14:03] MED LIST changes: +LIFI1DRO4 OU; -XIID5DRO OU
[2025-02-19] MEDS ORDERED: OSEL75CA PO (21:01)
[2025-02-19 21:09] VITALS: BP 126/74; TEMP 99.9; O2SAT 96
[2025-02-19] MEDS: OSELTAMIVIR PHOSPHATE 75 MG CAP PO ONE (21:14)
== END 2025-02-19 21:14 | disposition home or self-care (01) ==
LOC: M ED 14:03
DX: J09.X2 Influenza due to identified novel influenza A virus with other respiratory manifestations (principal); E78.5 Hyperlipidemia, unspecified; G47.33 Obstructive sleep apnea (adult) (pediatric); J45.909 Unspecified asthma, uncomplicated; F41.9 Anxiety disorder, unspecified; F32.A Depression, unspecified; Z86.711 Personal history of pulmonary embolism; Z86.718 Personal history of other venous thrombosis and embolism; Z91.09 Other allergy status, other than to drugs and biological substances; Z88.2 Allergy status to sulfonamides; Z79.51 Long term (current) use of inhaled steroids; Z79.899 Other long term (current) drug therapy

== ENCOUNTER → 2025-02-23 | Outpatient (CLI) | payer MEDICARE ==
[~2025-02-23] MED LIST changes: +OSEL75CA PO
== END ==
LOC: M RAD 15:15
PROVIDERS: ATTEND Physician Assistant
DX: G44.52 New daily persistent headache (NDPH) (principal); R29.818 Other symptoms and signs involving the nervous system

== ENCOUNTER → 2025-08-31 | Outpatient (REF) | payer MEDICARE ==
[~2025-08-31] MED LIST changes: +CIPR250T26 PO; -DIPH50CA PO; +DIPH50CA31 PO; -ESSE250T PO; +MAGN250T17 PO; +TAMS-18 PO
[2025-09-02 09:53] LABS: HPV APTIMA Not Detected (Not Detected)
== END ==
LOC: M SFHCWAGY 15:00
PROVIDERS: ATTEND Specialist
DX: Z12.4 Encounter for screening for malignant neoplasm of cervix (principal)
CPT/HCPCS: 87624; G0123

== ENCOUNTER 2025-09-03 13:12 | Emergency (ER) | payer MEDICARE ==
[~2025-09-03] VITALS: Ht 152.4 cm; Wt 86.2 kg
[2025-09-03] MEDS ORDERED: CEPH500C PO (17:33)
[2025-09-03 17:48] VITALS: BP 121/57; TEMP 98.8; O2SAT 95
== END 2025-09-03 17:50 | disposition home or self-care (01) ==
LOC: M ED 13:12
DX: L60.0 Ingrowing nail (principal); Z88.2 Allergy status to sulfonamides; Z91.09 Other allergy status, other than to drugs and biological substances; Z79.51 Long term (current) use of inhaled steroids; Z79.2 Long term (current) use of antibiotics; Z79.899 Other long term (current) drug therapy; Z79.01 Long term (current) use of anticoagulants

== ENCOUNTER → 2025-10-06 | Outpatient (CLI) | payer MEDICARE ==
[~2025-10-06] MED LIST changes: +CEPH500C PO
== END ==
LOC: M RAD 12:39
PROVIDERS: ATTEND Nurse Practitioner Family
DX: Z87.442 Personal history of urinary calculi (principal)